=== PATIENT | male | born 1955 | race Caucasian/White ===

== ENCOUNTER 2021-03-29 14:06 | Inpatient (IN) | payer OTHER ==
[2021-03-29 16:34] VITALS: BMI 37.5
[2021-03-29] MEDS ORDERED: ONDANSETRON *ODT* 4 MG TABLET SL PRN (17:08)
[2021-03-29] MEDS ORDERED: MAGNESIUM HYDROX 2400MG/30ML ORAL SUSPENSION 30 ML CUP PO PRN (17:08)
[2021-03-29] MEDS ORDERED: MENTHOL/PHENOL 1 EACH UD MM PRN (17:08)
[2021-03-29] MEDS ORDERED: MAG HYDROX/AL HYDROX/SIMETH 30 ML UNIT-DOSE CUP PO PRN (17:08)
[2021-03-29] MEDS ORDERED: IBUPROFEN 400 MG TABLET (FP) PO PRN (17:08)
[2021-03-29] MEDS ORDERED: BISMUTH SUBSALICYLATE 524 MG/30 ML PO PRN (17:08)
[2021-03-29] MEDS ORDERED: MAGNESIUM CITRATE 300 ML BOTTLE PO PRN (17:08)
[2021-03-29] MEDS ORDERED: ACETAMINOPHEN 325 MG TABLET (FP) PO PRN ×2 (17:08)
[2021-03-29] MEDS ORDERED: PATIENT'S OWN MEDICATION (NON-FORMULARY) (Hydroxyzine Hcl [Hydroxyzine Hcl] 10 MG Tablet) PO SCH (17:45)
[2021-03-29] MEDS: amLODIPine BESYLATE 10 MG TABLET (FP) PO SCH (19:45)
[2021-03-29] MEDS: hydrOXYzine PAMOATE 25 MG CAPSULE (FP) PO SCH ×2 (19:45→22:22)
[2021-03-29] MEDS: GABAPENTIN 300 MG CAPSULE PO SCH (22:22)
[2021-03-29] MEDS: PANTOPRAZOLE 40 MG TABLET PO SCH (22:22)
[2021-03-29] MEDS: MELATONIN 5 MG TABLETS PO SCH (22:22)
[2021-03-29] MEDS: ATORVASTATIN CA 20 MG TABLET (FP) PO SCH (22:22)
[2021-03-29] MEDS: TAMSULOSIN HCL 0.4 MG CAP PO SCH (22:22)
[2021-03-29] MEDS: THIAMINE HCL 100 MG TABLET (FP) PO SCH (22:22)
[2021-03-30] MEDS: metFORMIN HCL 500 MG TABLET (FP) PO SCH ×3 (06:08→17:52)
[2021-03-30] MEDS: hydrOXYzine PAMOATE 25 MG CAPSULE (FP) PO SCH ×5 (06:08→22:12)
[2021-03-30] MEDS ORDERED: diazePAM 5 MG TABLET PO PRN (09:55)
[2021-03-30 10:16] LABS: ALBUMIN 3.6 g/dl (3.4-5.0); BLOOD UREA NITROGEN 15.1 mg/dL (7-18); CALCIUM 9.2 mg/dL (8.5-10.1)
[2021-03-30 10:20] LABS: HEMATOCRIT 38.3 % (35.4-49); HEMOGLOBIN 12.8 GM/dL (11.7-16.9); MCH 25.4 pg (25.7-33.7); MCHC 33.5 g/dl (32.0-35.9); MEAN CELL VOLUME 75.8 fl (80-96); PLATELET COUNT 236 10^3/uL (134-434); RBC 5.05 M/mm3 (4.00-5.60); RDW 14.7 % (11.9-15.9)
[2021-03-30 10:21] LABS: TOT PROT 7.1 g/dl (6.4-8.2)
[2021-03-30 10:25] LABS: BILIRUBIN,TOTAL 0.8 mg/dL (0.2-1)
[2021-03-30] MEDS: GABAPENTIN 300 MG CAPSULE PO SCH ×2 (10:28→22:12)
[2021-03-30] MEDS: diazePAM 5 MG TABLET PO SCH ×3 (10:28→22:12)
[2021-03-30] MEDS: PANTOPRAZOLE 40 MG TABLET PO SCH ×2 (10:29→22:12)
[2021-03-30] MEDS: TAMSULOSIN HCL 0.4 MG CAP PO SCH ×2 (10:29→22:12)
[2021-03-30] MEDS: LORATADINE 10 MG TABLET PO SCH (10:29)
[2021-03-30] MEDS: amLODIPine BESYLATE 10 MG TABLET (FP) PO SCH (10:31)
[2021-03-30] MEDS: MELATONIN 5 MG TABLETS PO SCH (22:12)
[2021-03-30] MEDS: THIAMINE HCL 100 MG TABLET (FP) PO SCH (22:12)
[2021-03-30] MEDS: ATORVASTATIN CA 20 MG TABLET (FP) PO SCH (22:12)
[2021-03-31] MEDS: hydrOXYzine PAMOATE 25 MG CAPSULE (FP) PO SCH ×5 (05:41→22:47)
[2021-03-31] MEDS: diazePAM 5 MG TABLET PO SCH ×4 (05:42→22:48)
[2021-03-31] MEDS: metFORMIN HCL 500 MG TABLET (FP) PO SCH ×3 (06:56→17:34)
[2021-03-31] MEDS: GABAPENTIN 300 MG CAPSULE PO SCH ×2 (10:21→22:46)
[2021-03-31] MEDS: LORATADINE 10 MG TABLET PO SCH (10:21)
[2021-03-31] MEDS: PANTOPRAZOLE 40 MG TABLET PO SCH ×2 (10:21→22:47)
[2021-03-31] MEDS: amLODIPine BESYLATE 10 MG TABLET (FP) PO SCH (10:21)
[2021-03-31] MEDS: TAMSULOSIN HCL 0.4 MG CAP PO SCH ×2 (10:21→23:13)
[2021-03-31] MEDS: traZODone HCL 50 MG TABLET (FP) PO SCH (22:47)
[2021-03-31] MEDS: ATORVASTATIN CA 20 MG TABLET (FP) PO SCH (22:47)
[2021-03-31] MEDS: THIAMINE HCL 100 MG TABLET (FP) PO SCH (22:47)
[2021-03-31] MEDS: MELATONIN 5 MG TABLETS PO SCH (22:47)
[2021-04-01] MEDS: diazePAM 5 MG TABLET PO SCH ×3 (05:38→22:15)
[2021-04-01] MEDS: hydrOXYzine PAMOATE 25 MG CAPSULE (FP) PO SCH ×5 (05:38→22:15)
[2021-04-01] MEDS: metFORMIN HCL 500 MG TABLET (FP) PO SCH ×3 (06:25→17:44)
[2021-04-01] MEDS: GABAPENTIN 300 MG CAPSULE PO SCH ×2 (10:00→22:15)
[2021-04-01] MEDS: LORATADINE 10 MG TABLET PO SCH (10:00)
[2021-04-01] MEDS: TAMSULOSIN HCL 0.4 MG CAP PO SCH ×2 (10:00→22:15)
[2021-04-01] MEDS: amLODIPine BESYLATE 10 MG TABLET (FP) PO SCH (10:01)
[2021-04-01] MEDS: PANTOPRAZOLE 40 MG TABLET PO SCH ×2 (10:01→22:15)
[2021-04-01] MEDS: METHOCARBAMOL 500 MG TABLET PO PRN ×2 (10:04→17:47)
[2021-04-01] MEDS: traZODone HCL 50 MG TABLET (FP) PO SCH (22:15)
[2021-04-01] MEDS: ATORVASTATIN CA 20 MG TABLET (FP) PO SCH (22:15)
[2021-04-01] MEDS: THIAMINE HCL 100 MG TABLET (FP) PO SCH (22:16)
[2021-04-01] MEDS: MELATONIN 5 MG TABLETS PO SCH (22:16)
[2021-04-02] MEDS: hydrOXYzine PAMOATE 25 MG CAPSULE (FP) PO SCH ×5 (05:37→21:59)
[2021-04-02] MEDS: diazePAM 5 MG TABLET PO SCH ×2 (05:37→17:02)
[2021-04-02] MEDS: METHOCARBAMOL 500 MG TABLET PO PRN ×3 (05:37→19:40)
[2021-04-02] MEDS: metFORMIN HCL 500 MG TABLET (FP) PO SCH ×3 (06:06→17:02)
[2021-04-02] MEDS: TAMSULOSIN HCL 0.4 MG CAP PO SCH ×2 (10:38→21:59)
[2021-04-02] MEDS: LORATADINE 10 MG TABLET PO SCH (10:38)
[2021-04-02] MEDS: PANTOPRAZOLE 40 MG TABLET PO SCH ×2 (10:38→21:59)
[2021-04-02] MEDS: amLODIPine BESYLATE 10 MG TABLET (FP) PO SCH (10:38)
[2021-04-02] MEDS: GABAPENTIN 300 MG CAPSULE PO SCH ×2 (10:41→21:59)
[2021-04-02] MEDS: THIAMINE HCL 100 MG TABLET (FP) PO SCH (21:59)
[2021-04-02] MEDS: traZODone HCL 50 MG TABLET (FP) PO SCH (21:59)
[2021-04-02] MEDS: ATORVASTATIN CA 20 MG TABLET (FP) PO SCH (21:59)
[2021-04-02] MEDS: MELATONIN 5 MG TABLETS PO SCH (22:01)
[2021-04-03] MEDS: hydrOXYzine PAMOATE 25 MG CAPSULE (FP) PO SCH ×2 (05:41→10:18)
[2021-04-03] MEDS ORDERED: diazePAM 5 MG TABLET PO ONE (06:00)
[2021-04-03] MEDS: metFORMIN HCL 500 MG TABLET (FP) PO SCH (06:14)
[2021-04-03 09:39] VITALS: BP 151/97; PULSE 95; TEMP 97.5
[2021-04-03] MEDS: amLODIPine BESYLATE 10 MG TABLET (FP) PO SCH (10:17)
[2021-04-03] MEDS: GABAPENTIN 300 MG CAPSULE PO SCH (10:17)
[2021-04-03] MEDS: TAMSULOSIN HCL 0.4 MG CAP PO SCH (10:17)
[2021-04-03] MEDS: PANTOPRAZOLE 40 MG TABLET PO SCH (10:18)
[2021-04-03] MEDS: LORATADINE 10 MG TABLET PO SCH (10:18)
== END 2021-04-03 10:29 | disposition home or self-care (01) | DRG 897 ==
LOC: YASAS 14:06 → Y3N 17:47
PROVIDERS: ADMIT Allergy & Immunology; ATTEND Allergy & Immunology
PROC: HZ2ZZZZ Detoxification Services for Substance Abuse Treatment (ICD-10-PCS; principal; 2021-03-29)
DX: F10.230 Alcohol dependence with withdrawal, uncomplicated (principal); F41.9 Anxiety disorder, unspecified; E78.5 Hyperlipidemia, unspecified; E11.9 Type 2 diabetes mellitus without complications; Z79.84 Long term (current) use of oral hypoglycemic drugs; G47.00 Insomnia, unspecified; I10 Essential (primary) hypertension; K21.9 Gastro-esophageal reflux disease without esophagitis; Z96.652 Presence of left artificial knee joint; Z98.2 Presence of cerebrospinal fluid drainage device; Z87.891 Personal history of nicotine dependence
CPT/HCPCS: 36415; 80053; 82962; 85027; 86780; C9803; U0003; U0005

== ENCOUNTER 2021-04-18 09:12 | Inpatient (IN) | payer OTHER ==
[2021-04-18 09:30] VITALS: BMI 36.9
[2021-04-18] MEDS ORDERED: MAGNESIUM HYDROX 2400MG/30ML ORAL SUSPENSION 30 ML CUP PO PRN (13:03)
[2021-04-18] MEDS ORDERED: ACETAMINOPHEN 325 MG TABLET (FP) PO PRN ×2 (13:03)
[2021-04-18] MEDS ORDERED: ONDANSETRON *ODT* 4 MG TABLET SL PRN (13:03)
[2021-04-18] MEDS ORDERED: MENTHOL/PHENOL 1 EACH UD MM PRN (13:03)
[2021-04-18] MEDS ORDERED: IBUPROFEN 400 MG TABLET (FP) PO PRN (13:03)
[2021-04-18] MEDS ORDERED: MAGNESIUM CITRATE 300 ML BOTTLE PO PRN (13:03)
[2021-04-18] MEDS ORDERED: MAG HYDROX/AL HYDROX/SIMETH 30 ML UNIT-DOSE CUP PO PRN (13:03)
[2021-04-18] MEDS ORDERED: BISMUTH SUBSALICYLATE 524 MG/30 ML PO PRN (13:03)
[2021-04-18] MEDS: diazePAM 5 MG TABLET PO PRN (14:57)
[2021-04-18] MEDS: METHOCARBAMOL 500 MG TABLET PO PRN (14:57)
[2021-04-18] MEDS: hydrOXYzine PAMOATE 25 MG CAPSULE (FP) PO SCH ×3 (15:02→22:21)
[2021-04-18] MEDS: metFORMIN HCL 500 MG TABLET (FP) PO SCH (17:26)
[2021-04-18] MEDS: diazePAM 5 MG TABLET PO SCH ×2 (17:26→22:19)
[2021-04-18] MEDS ORDERED: MELATONIN 5 MG TABLETS PO SCH (22:00)
[2021-04-18] MEDS: PANTOPRAZOLE 40 MG TABLET PO SCH (22:18)
[2021-04-18] MEDS: TAMSULOSIN HCL 0.4 MG CAP PO SCH (22:18)
[2021-04-18] MEDS: THIAMINE HCL 100 MG TABLET (FP) PO SCH (22:18)
[2021-04-18] MEDS: GABAPENTIN 300 MG CAPSULE PO SCH (22:18)
[2021-04-18] MEDS: ATORVASTATIN CA 20 MG TABLET (FP) PO SCH (22:19)
[2021-04-19] MEDS: diazePAM 5 MG TABLET PO PRN (03:24)
[2021-04-19] MEDS: hydrOXYzine PAMOATE 25 MG CAPSULE (FP) PO SCH ×5 (05:54→22:17)
[2021-04-19] MEDS: diazePAM 5 MG TABLET PO SCH ×4 (05:54→22:17)
[2021-04-19] MEDS: METHOCARBAMOL 500 MG TABLET PO PRN ×2 (05:54→12:18)
[2021-04-19] MEDS: metFORMIN HCL 500 MG TABLET (FP) PO SCH ×3 (06:03→17:14)
[2021-04-19] MEDS: PANTOPRAZOLE 40 MG TABLET PO SCH ×2 (10:38→22:16)
[2021-04-19] MEDS: PRENATAL VITAMINS W/ FOLIC ACID TABLET (FP) PO SCH (10:38)
[2021-04-19] MEDS: GABAPENTIN 300 MG CAPSULE PO SCH ×2 (10:39→22:16)
[2021-04-19] MEDS: TAMSULOSIN HCL 0.4 MG CAP PO SCH ×2 (10:39→22:16)
[2021-04-19] MEDS: amLODIPine BESYLATE 10 MG TABLET (FP) PO SCH (10:39)
[2021-04-19 11:05] LABS: HEMATOCRIT 37.4 % (35.4-49); HEMOGLOBIN 12.3 GM/dL (11.7-16.9); MCHC 32.8 g/dl (32.0-35.9); MEAN CELL VOLUME 76.3 fl (80-96); PLATELET COUNT 345 10^3/uL (134-434); RBC 4.91 M/mm3 (4.00-5.60); RDW 15.4 % (11.9-15.9); WHITE BLOOD COUNT 8.8 K/mm3 (4.0-10.0)
[2021-04-19 11:09] LABS: BLOOD UREA NITROGEN 15.2 mg/dL (7-18); CALCIUM 9.7 mg/dL (8.5-10.1)
[2021-04-19 11:10] LABS: ALBUMIN 3.2 g/dl (3.4-5.0)
[2021-04-19 11:14] LABS: BILIRUBIN,TOTAL 0.4 mg/dL (0.2-1); CREATININE 0.9 mg/dL (0.55-1.3)
[2021-04-19 11:15] LABS: TOT PROT 6.8 g/dl (6.4-8.2)
[2021-04-19] MEDS: ATORVASTATIN CA 20 MG TABLET (FP) PO SCH (22:16)
[2021-04-19] MEDS: traZODone HCL 100 MG TABLET (FP) PO SCH (22:16)
[2021-04-19] MEDS: THIAMINE HCL 100 MG TABLET (FP) PO SCH (22:16)
[2021-04-20] MEDS: hydrOXYzine PAMOATE 25 MG CAPSULE (FP) PO SCH ×5 (05:40→22:14)
[2021-04-20] MEDS: diazePAM 5 MG TABLET PO SCH ×3 (05:40→22:14)
[2021-04-20] MEDS: metFORMIN HCL 500 MG TABLET (FP) PO SCH ×3 (08:00→16:59)
[2021-04-20] MEDS: METHOCARBAMOL 500 MG TABLET PO PRN ×2 (08:02→22:18)
[2021-04-20] MEDS: TAMSULOSIN HCL 0.4 MG CAP PO SCH ×2 (10:23→22:13)
[2021-04-20] MEDS: GABAPENTIN 300 MG CAPSULE PO SCH ×2 (10:23→22:13)
[2021-04-20] MEDS: PANTOPRAZOLE 40 MG TABLET PO SCH ×2 (10:23→22:13)
[2021-04-20] MEDS: PRENATAL VITAMINS W/ FOLIC ACID TABLET (FP) PO SCH (10:23)
[2021-04-20] MEDS: amLODIPine BESYLATE 10 MG TABLET (FP) PO SCH (10:23)
[2021-04-20] MEDS ORDERED: NALTREXONE HCL 50 MG TABLET PO ONE (11:00)
[2021-04-20] MEDS: diazePAM 5 MG TABLET PO PRN (17:00)
[2021-04-20] MEDS: ATORVASTATIN CA 20 MG TABLET (FP) PO SCH (22:13)
[2021-04-20] MEDS: THIAMINE HCL 100 MG TABLET (FP) PO SCH (22:13)
[2021-04-20] MEDS: traZODone HCL 100 MG TABLET (FP) PO SCH (22:13)
[2021-04-21] MEDS: diazePAM 5 MG TABLET PO SCH ×2 (05:24→17:53)
[2021-04-21] MEDS: hydrOXYzine PAMOATE 25 MG CAPSULE (FP) PO SCH ×5 (05:24→22:02)
[2021-04-21] MEDS: METHOCARBAMOL 500 MG TABLET PO PRN (05:26)
[2021-04-21] MEDS: metFORMIN HCL 500 MG TABLET (FP) PO SCH ×3 (06:04→17:53)
[2021-04-21] MEDS ORDERED: NALTREXONE HCL 50 MG TABLET PO ONE (10:00)
[2021-04-21] MEDS: GABAPENTIN 300 MG CAPSULE PO SCH ×2 (10:25→22:01)
[2021-04-21] MEDS: amLODIPine BESYLATE 10 MG TABLET (FP) PO SCH (10:25)
[2021-04-21] MEDS: PRENATAL VITAMINS W/ FOLIC ACID TABLET (FP) PO SCH (10:25)
[2021-04-21] MEDS: TAMSULOSIN HCL 0.4 MG CAP PO SCH ×2 (10:26→22:01)
[2021-04-21] MEDS: PANTOPRAZOLE 40 MG TABLET PO SCH ×2 (10:26→22:02)
[2021-04-21] MEDS: diazePAM 5 MG TABLET PO PRN (12:58)
[2021-04-21] MEDS: traZODone HCL 100 MG TABLET (FP) PO SCH (22:01)
[2021-04-21] MEDS: ATORVASTATIN CA 20 MG TABLET (FP) PO SCH (22:01)
[2021-04-21] MEDS: THIAMINE HCL 100 MG TABLET (FP) PO SCH (22:01)
[2021-04-22] MEDS: hydrOXYzine PAMOATE 25 MG CAPSULE (FP) PO SCH (05:49)
[2021-04-22] MEDS ORDERED: NALTREXONE HCL 50 MG TABLET PO ONE (06:00)
[2021-04-22] MEDS ORDERED: diazePAM 5 MG TABLET PO ONE (06:00)
[2021-04-22] MEDS: metFORMIN HCL 500 MG TABLET (FP) PO SCH (06:13)
[2021-04-22 07:07] VITALS: PULSE 68; TEMP 97.8
[2021-04-22 08:35] VITALS: BP 155/86
[2021-04-22] MEDS: amLODIPine BESYLATE 10 MG TABLET (FP) PO SCH (09:13)
[2021-04-22] MEDS: PANTOPRAZOLE 40 MG TABLET PO SCH (09:13)
[2021-04-22] MEDS: GABAPENTIN 300 MG CAPSULE PO SCH (09:13)
[2021-04-22] MEDS: TAMSULOSIN HCL 0.4 MG CAP PO SCH (09:13)
== END 2021-04-22 09:20 | disposition home or self-care (01) | DRG 897 ==
LOC: YASAS 09:12 → Y6N 14:03
PROVIDERS: ADMIT Allergy & Immunology; ATTEND Allergy & Immunology
PROC: HZ2ZZZZ Detoxification Services for Substance Abuse Treatment (ICD-10-PCS; principal; 2021-04-18)
DX: F10.230 Alcohol dependence with withdrawal, uncomplicated (principal); F10.24 Alcohol dependence with alcohol-induced mood disorder; F32.9 Major depressive disorder, single episode, unspecified; I10 Essential (primary) hypertension; E78.00 Pure hypercholesterolemia, unspecified; E11.42 Type 2 diabetes mellitus with diabetic polyneuropathy; K21.9 Gastro-esophageal reflux disease without esophagitis; J45.909 Unspecified asthma, uncomplicated; N40.0 Benign prostatic hyperplasia without lower urinary tract symptoms; Z96.652 Presence of left artificial knee joint; Z79.84 Long term (current) use of oral hypoglycemic drugs; Z99.89 Dependence on other enabling machines and devices; Z98.2 Presence of cerebrospinal fluid drainage device
CPT/HCPCS: 36415; 80053; 82962; 85027; 86780; C9803; U0003; U0005

== ENCOUNTER 2021-07-15 19:54 | Emergency (ER) | payer OTHER ==
[2021-07-15 20:19] VITALS: TEMP 98.3; BMI 35.1
[2021-07-15] MEDS ORDERED: BACITRACIN 15 GM TUBE TOPICAL OINTMENT TP ONE (20:37)
[2021-07-15] MEDS ORDERED: BACITRACIN 15 GM TUBE TOPICAL OINTMENT ONE (20:38)
[2021-07-15] MEDS ORDERED: DIPHTH,PERTUSS(ACELL),TET 0.5 ML DISP.SYRIN IM ONE ×3 (20:38→20:42)
[2021-07-15] MEDS ORDERED: BACITRACIN 0.9 GM PACKET ONE (20:42)
[2021-07-15] MEDS ORDERED: chlordiazePOXIDE HCL 25 MG CAPSULE PO ONE (21:55)
[2021-07-15] MEDS ORDERED: ACETAMINOPHEN 500 MG TABLET (FP) PO ONE (21:55)
[2021-07-15] MEDS ORDERED: chlordiazePOXIDE HCL 25 MG CAPSULE ONE (22:08)
[2021-07-15] MEDS ORDERED: ACETAMINOPHEN 325 MG TABLET (FP) ONE (22:08)
[2021-07-15 22:18] VITALS: BP 121/81; PULSE 87
== END 2021-07-15 22:18 | disposition home or self-care (01) ==
LOC: JER 19:54
PROC: 3E0234Z Introduction of Serum, Toxoid and Vaccine into Muscle, Percutaneous Approach (ICD-10-PCS; principal; 2021-07-15)
DX: S09.90XA Unspecified injury of head, initial encounter (principal); S00.81XA Abrasion of other part of head, initial encounter; F10.920 Alcohol use, unspecified with intoxication, uncomplicated; W01.0XXA Fall on same level from slipping, tripping and stumbling without subsequent striking against object, initial encounter
CPT/HCPCS: 70450-TC; 90471; 90715; 99284-25

== ENCOUNTER 2021-07-15 22:41 | Inpatient (IN) | payer OTHER ==
[2021-07-15 23:44] VITALS: BMI 36.3
[2021-07-16] MEDS ORDERED: MAG HYDROX/AL HYDROX/SIMETH 30 ML UNIT-DOSE CUP PO PRN (00:28)
[2021-07-16] MEDS ORDERED: NICOTINE POLACRILEX 2 MG GUM BUC PRN (00:28)
[2021-07-16] MEDS ORDERED: MAGNESIUM CITRATE 300 ML BOTTLE PO PRN (00:28)
[2021-07-16] MEDS ORDERED: ACETAMINOPHEN 325 MG TABLET (FP) PO PRN (00:28)
[2021-07-16] MEDS ORDERED: MENTHOL/PHENOL 1 EACH UD MM PRN (00:28)
[2021-07-16] MEDS ORDERED: ONDANSETRON *ODT* 4 MG TABLET SL PRN (00:28)
[2021-07-16] MEDS ORDERED: MAGNESIUM HYDROX 2400MG/30ML ORAL SUSPENSION 30 ML CUP PO PRN (00:28)
[2021-07-16] MEDS ORDERED: BISMUTH SUBSALICYLATE 524 MG/30 ML PO PRN (00:28)
[2021-07-16] MEDS ORDERED: chlordiazePOXIDE HCL 25 MG CAPSULE PO PRN (00:31)
[2021-07-16] MEDS ORDERED: IBUPROFEN 400 MG TABLET (FP) PO ONE (01:53)
[2021-07-16] MEDS: IBUPROFEN 400 MG TABLET (FP) PO PRN ×3 (01:58→17:47)
[2021-07-16] MEDS: METHOCARBAMOL 500 MG TABLET PO PRN ×3 (02:15→17:47)
[2021-07-16] MEDS ORDERED: METHOCARBAMOL 500 MG TABLET ONE (02:22)
[2021-07-16] MEDS: chlordiazePOXIDE HCL 25 MG CAPSULE PO SCH ×4 (05:43→22:32)
[2021-07-16] MEDS: ACETAMINOPHEN 325 MG TABLET (FP) PO PRN ×2 (10:24→17:49)
[2021-07-16] MEDS: PRENATAL VITAMINS W/ FOLIC ACID TABLET (FP) PO SCH (10:25)
[2021-07-16] MEDS: NICOTINE 14 MG/24 HOURS TOPICAL PATCH TD SCH (10:28)
[2021-07-16] MEDS ORDERED: PATIENT'S OWN MEDICATION (NON-FORMULARY) (Icosapent Ethyl [Vascepa] 1 GM Capsule) PO SCH (12:30)
[2021-07-16] MEDS: ATORVASTATIN CA 20 MG TABLET (FP) PO SCH (13:38)
[2021-07-16] MEDS: amLODIPine BESYLATE 10 MG TABLET (FP) PO SCH (13:38)
[2021-07-16] MEDS: metFORMIN HCL 500 MG TABLET (FP) PO SCH ×2 (13:38→17:47)
[2021-07-16] MEDS: TAMSULOSIN HCL 0.4 MG CAP PO SCH ×2 (13:38→22:31)
[2021-07-16] MEDS: PANTOPRAZOLE 40 MG TABLET PO SCH (15:06)
[2021-07-16] MEDS: LORATADINE 10 MG TABLET PO SCH (15:06)
[2021-07-16] MEDS: GABAPENTIN 300 MG CAPSULE PO SCH ×2 (15:06→22:30)
[2021-07-16] MEDS: SILDENAFIL CITRATE 20 MG TAB PO SCH ×2 (15:30→22:32)
[2021-07-16] MEDS: DULoxetine HCL 60 MG CAPSULE.DR PO SCH ×2 (16:03→22:30)
[2021-07-16] MEDS: traZODone HCL 100 MG TABLET (FP) PO SCH (22:30)
[2021-07-16] MEDS: THIAMINE HCL 100 MG TABLET (FP) PO SCH (22:30)
[2021-07-16] MEDS: MELATONIN 5 MG TABLETS PO SCH (22:33)
[2021-07-17] MEDS: chlordiazePOXIDE HCL 25 MG CAPSULE PO SCH ×4 (05:26→22:42)
[2021-07-17] MEDS: METHOCARBAMOL 500 MG TABLET PO PRN ×2 (05:26→10:41)
[2021-07-17] MEDS: SILDENAFIL CITRATE 20 MG TAB PO SCH ×3 (05:27→22:42)
[2021-07-17] MEDS: metFORMIN HCL 500 MG TABLET (FP) PO SCH ×2 (07:24→16:39)
[2021-07-17] MEDS: DULoxetine HCL 60 MG CAPSULE.DR PO SCH ×2 (10:40→22:42)
[2021-07-17] MEDS: PRENATAL VITAMINS W/ FOLIC ACID TABLET (FP) PO SCH (10:40)
[2021-07-17] MEDS: amLODIPine BESYLATE 10 MG TABLET (FP) PO SCH (10:42)
[2021-07-17] MEDS: PANTOPRAZOLE 40 MG TABLET PO SCH (10:42)
[2021-07-17] MEDS: GABAPENTIN 300 MG CAPSULE PO SCH ×2 (10:42→20:30)
[2021-07-17] MEDS: LORATADINE 10 MG TABLET PO SCH (10:42)
[2021-07-17] MEDS: ATORVASTATIN CA 20 MG TABLET (FP) PO SCH (10:42)
[2021-07-17] MEDS: TAMSULOSIN HCL 0.4 MG CAP PO SCH ×2 (10:43→22:42)
[2021-07-17] MEDS: NICOTINE 14 MG/24 HOURS TOPICAL PATCH TD SCH (10:43)
[2021-07-17 13:39] LABS: CHLORIDE 99 mmol/L (98-107); SODIUM 126 mmol/L (136-145)
[2021-07-17 13:47] LABS: SGOT/AST 26 U/L (15-37)
[2021-07-17 13:49] LABS: BILIRUBIN,TOTAL 0.6 mg/dL (0.2-1); CALCIUM 8.9 mg/dL (8.5-10.1); CO2 20 mmol/L (21-32); GLUCOSE,RANDOM 126 mg/dL (74-106); HEMATOCRIT 39.4 % (35.4-49); HEMOGLOBIN 12.6 GM/dL (11.7-16.9); MCH 24.3 pg (25.7-33.7); MCHC 32.1 g/dl (32.0-35.9); MEAN CELL VOLUME 75.8 fl (80-96); MEAN PLT VOLUME 8.7 fl (7.5-11.1); PLATELET COUNT 244 10^3/uL (134-434); RBC 5.19 M/mm3 (4.00-5.60); RDW 18.6 % (11.9-15.9)
[2021-07-17 13:50] LABS: ALK PHOS 82 U/L (45-117)
[2021-07-17 13:58] LABS: SGPT/ALT 22 U/L (13-61)
[2021-07-17 13:59] LABS: ANION GAP 7 MMOL/L (8-16)
[2021-07-17 14:09] LABS: WHITE BLOOD COUNT 1.5 K/mm3 (4.0-10.0)
[2021-07-17] MEDS ORDERED: SODIUM POLYSTYRENE SULFONATE 15 GM/60 ML BOTTLE PO ONE (17:10)
[2021-07-17] MEDS: ACETAMINOPHEN 325 MG TABLET (FP) PO PRN (18:43)
[2021-07-17] MEDS: THIAMINE HCL 100 MG TABLET (FP) PO SCH (22:42)
[2021-07-17] MEDS: traZODone HCL 100 MG TABLET (FP) PO SCH (22:42)
[2021-07-17] MEDS: MELATONIN 5 MG TABLETS PO SCH (22:43)
[2021-07-18] MEDS ORDERED: chlordiazePOXIDE HCL 10 MG CAPSULE PO PRN
[2021-07-18] MEDS: chlordiazePOXIDE HCL 10 MG CAPSULE PO SCH ×4 (05:31→22:12)
[2021-07-18] MEDS: SILDENAFIL CITRATE 20 MG TAB PO SCH ×3 (05:35→22:12)
[2021-07-18] MEDS: metFORMIN HCL 500 MG TABLET (FP) PO SCH ×2 (07:25→17:23)
[2021-07-18] MEDS: PANTOPRAZOLE 40 MG TABLET PO SCH (10:24)
[2021-07-18] MEDS: ATORVASTATIN CA 20 MG TABLET (FP) PO SCH (10:24)
[2021-07-18] MEDS: METHOCARBAMOL 500 MG TABLET PO PRN ×2 (10:24→22:12)
[2021-07-18] MEDS: amLODIPine BESYLATE 10 MG TABLET (FP) PO SCH (10:24)
[2021-07-18] MEDS: PRENATAL VITAMINS W/ FOLIC ACID TABLET (FP) PO SCH (10:24)
[2021-07-18] MEDS: TAMSULOSIN HCL 0.4 MG CAP PO SCH ×2 (10:24→22:12)
[2021-07-18] MEDS: DULoxetine HCL 60 MG CAPSULE.DR PO SCH ×2 (10:24→22:11)
[2021-07-18] MEDS: GABAPENTIN 300 MG CAPSULE PO SCH ×2 (10:24→22:12)
[2021-07-18] MEDS: NICOTINE 14 MG/24 HOURS TOPICAL PATCH TD SCH (10:25)
[2021-07-18] MEDS: LORATADINE 10 MG TABLET PO SCH (10:28)
[2021-07-18] MEDS ORDERED: INSULIN SLIDING SCALE (NOVOLOG) 1 VIAL SQ SCH (16:30)
[2021-07-18] MEDS: MELATONIN 5 MG TABLETS PO SCH (22:11)
[2021-07-18] MEDS: traZODone HCL 100 MG TABLET (FP) PO SCH (22:12)
[2021-07-18] MEDS: THIAMINE HCL 100 MG TABLET (FP) PO SCH (22:12)
[2021-07-19] MEDS: SILDENAFIL CITRATE 20 MG TAB PO SCH ×3 (05:30→22:28)
[2021-07-19] MEDS: chlordiazePOXIDE HCL 10 MG CAPSULE PO SCH ×2 (05:30→17:31)
[2021-07-19] MEDS: METHOCARBAMOL 500 MG TABLET PO PRN ×2 (05:34→15:05)
[2021-07-19] MEDS: metFORMIN HCL 500 MG TABLET (FP) PO SCH ×2 (07:10→17:31)
[2021-07-19] MEDS: GABAPENTIN 300 MG CAPSULE PO SCH ×2 (10:14→22:28)
[2021-07-19] MEDS: ATORVASTATIN CA 20 MG TABLET (FP) PO SCH (10:14)
[2021-07-19] MEDS: LORATADINE 10 MG TABLET PO SCH (10:14)
[2021-07-19] MEDS: PANTOPRAZOLE 40 MG TABLET PO SCH (10:14)
[2021-07-19] MEDS: TAMSULOSIN HCL 0.4 MG CAP PO SCH ×2 (10:15→22:28)
[2021-07-19] MEDS: DULoxetine HCL 60 MG CAPSULE.DR PO SCH ×2 (10:15→22:28)
[2021-07-19] MEDS: PRENATAL VITAMINS W/ FOLIC ACID TABLET (FP) PO SCH (10:15)
[2021-07-19] MEDS: amLODIPine BESYLATE 10 MG TABLET (FP) PO SCH (10:15)
[2021-07-19] MEDS: NICOTINE 14 MG/24 HOURS TOPICAL PATCH TD SCH (10:15)
[2021-07-19 10:49] LABS: BASO % 0.8 % (0-2.0); EOS % 7.6 % (0-4.5); HEMATOCRIT 36.1 % (35.4-49); HEMOGLOBIN 11.9 GM/dL (11.7-16.9); LYMPH % 16.7 % (8-40); MCH 24.9 pg (25.7-33.7); MCHC 32.9 g/dl (32.0-35.9); MEAN CELL VOLUME 75.8 fl (80-96); MEAN PLT VOLUME 7.9 fl (7.5-11.1); MONO % 6.8 % (3.8-10.2); NEUT % 68.1 % (42.8-82.8); PLATELET COUNT 217 10^3/uL (134-434); RBC 4.76 M/mm3 (4.00-5.60)
[2021-07-19] MEDS: IBUPROFEN 400 MG TABLET (FP) PO PRN (15:05)
[2021-07-19] MEDS: INSULIN SLIDING SCALE (NOVOLOG) 1 VIAL SQ PRN (17:33)
[2021-07-19] MEDS ORDERED: INSULIN (NOVOLOG) ASPART 100 UNITS/ML 10ML VIAL ONE (17:35)
[2021-07-19] MEDS: THIAMINE HCL 100 MG TABLET (FP) PO SCH (22:28)
[2021-07-19] MEDS: traZODone HCL 100 MG TABLET (FP) PO SCH (22:28)
[2021-07-19] MEDS: MELATONIN 5 MG TABLETS PO SCH (22:29)
[2021-07-20] MEDS ORDERED: chlordiazePOXIDE HCL 10 MG CAPSULE PO ONE (05:00)
[2021-07-20] MEDS: SILDENAFIL CITRATE 20 MG TAB PO SCH ×3 (05:47→22:23)
[2021-07-20] MEDS: METHOCARBAMOL 500 MG TABLET PO PRN (05:51)
[2021-07-20] MEDS: metFORMIN HCL 500 MG TABLET (FP) PO SCH ×2 (06:06→17:40)
[2021-07-20] MEDS ORDERED: LOPERAMIDE HCL 2 MG CAPSULE PO ONE (09:50)
[2021-07-20] MEDS: PRENATAL VITAMINS W/ FOLIC ACID TABLET (FP) PO SCH (10:31)
[2021-07-20] MEDS: LORATADINE 10 MG TABLET PO SCH (10:32)
[2021-07-20] MEDS: TAMSULOSIN HCL 0.4 MG CAP PO SCH ×2 (10:32→22:24)
[2021-07-20] MEDS: amLODIPine BESYLATE 10 MG TABLET (FP) PO SCH (10:32)
[2021-07-20] MEDS: GABAPENTIN 300 MG CAPSULE PO SCH ×2 (10:32→22:24)
[2021-07-20] MEDS: PANTOPRAZOLE 40 MG TABLET PO SCH (10:32)
[2021-07-20] MEDS: ATORVASTATIN CA 20 MG TABLET (FP) PO SCH (10:32)
[2021-07-20] MEDS: NICOTINE 14 MG/24 HOURS TOPICAL PATCH TD SCH (10:32)
[2021-07-20] MEDS: DULoxetine HCL 60 MG CAPSULE.DR PO SCH ×2 (10:32→22:24)
[2021-07-20] MEDS ORDERED: SUCRALFATE 1 GM TABLET (FP) PO ONE (14:00)
[2021-07-20] MEDS ORDERED: INSULIN (NOVOLOG) ASPART 100 UNITS/ML 10ML VIAL ONE (17:38)
[2021-07-20] MEDS: INSULIN SLIDING SCALE (NOVOLOG) 1 VIAL SQ PRN (17:40)
[2021-07-20] MEDS: THIAMINE HCL 100 MG TABLET (FP) PO SCH (22:24)
[2021-07-20] MEDS: MELATONIN 5 MG TABLETS PO SCH (22:24)
[2021-07-20] MEDS: traZODone HCL 100 MG TABLET (FP) PO SCH (22:24)
[2021-07-21] MEDS: SILDENAFIL CITRATE 20 MG TAB PO SCH (05:17)
[2021-07-21] MEDS: metFORMIN HCL 500 MG TABLET (FP) PO SCH (06:20)
[2021-07-21] MEDS: PANTOPRAZOLE 40 MG TABLET PO SCH (10:18)
[2021-07-21] MEDS: DULoxetine HCL 60 MG CAPSULE.DR PO SCH (10:18)
[2021-07-21] MEDS: PRENATAL VITAMINS W/ FOLIC ACID TABLET (FP) PO SCH (10:18)
[2021-07-21] MEDS: TAMSULOSIN HCL 0.4 MG CAP PO SCH (10:18)
[2021-07-21] MEDS: amLODIPine BESYLATE 10 MG TABLET (FP) PO SCH (10:18)
[2021-07-21] MEDS: LORATADINE 10 MG TABLET PO SCH (10:18)
[2021-07-21] MEDS: GABAPENTIN 300 MG CAPSULE PO SCH (10:18)
[2021-07-21] MEDS: ATORVASTATIN CA 20 MG TABLET (FP) PO SCH (10:18)
[2021-07-21] MEDS: NICOTINE 14 MG/24 HOURS TOPICAL PATCH TD SCH (10:37)
[2021-07-21 13:08] VITALS: BP 154/83; PULSE 101; TEMP 98
== END 2021-07-21 13:43 | disposition other institution (70) | DRG 897 ==
LOC: YASAS 22:41 → Y6N 07-16 02:13
PROVIDERS: ADMIT Allergy & Immunology; ATTEND Allergy & Immunology
PROC: HZ2ZZZZ Detoxification Services for Substance Abuse Treatment (ICD-10-PCS; principal; 2021-07-16)
DX: F10.230 Alcohol dependence with withdrawal, uncomplicated (principal); F19.282 Other psychoactive substance dependence with psychoactive substance-induced sleep disorder; G91.2 (Idiopathic) normal pressure hydrocephalus; F19.24 Other psychoactive substance dependence with psychoactive substance-induced mood disorder; F41.9 Anxiety disorder, unspecified; F32.A Depression, unspecified; E87.5 Hyperkalemia; E78.5 Hyperlipidemia, unspecified; E11.9 Type 2 diabetes mellitus without complications; Z79.84 Long term (current) use of oral hypoglycemic drugs; I10 Essential (primary) hypertension; J45.20 Mild intermittent asthma, uncomplicated; K21.9 Gastro-esophageal reflux disease without esophagitis; N40.0 Benign prostatic hyperplasia without lower urinary tract symptoms; N52.9 Male erectile dysfunction, unspecified; R19.7 Diarrhea, unspecified; R53.1 Weakness; Z96.652 Presence of left artificial knee joint; Z99.89 Dependence on other enabling machines and devices; Z87.891 Personal history of nicotine dependence; Z98.2 Presence of cerebrospinal fluid drainage device; S09.90XA Unspecified injury of head, initial encounter; S00.81XA Abrasion of other part of head, initial encounter; R51.9 Headache, unspecified; W19.XXXA Unspecified fall, initial encounter; Y92.9 Unspecified place or not applicable
CPT/HCPCS: 36415; 80053; 82962; 84132; 85025; 85027; 86780; 93005; 93010; C9803; U0003; U0005

== ENCOUNTER 2021-09-11 08:30 | Inpatient (IN) | payer OTHER ==
[2021-09-11] MEDS ORDERED: TRIMETHOBENZAMIDE HCL 200MG/2ML INJ IM ONE ×2 (10:00→10:05)
[2021-09-11] MEDS ORDERED: ONDANSETRON *ODT* 4 MG TABLET SL PRN (11:17)
[2021-09-11] MEDS ORDERED: BISMUTH SUBSALICYLATE 524 MG/30 ML PO PRN (11:17)
[2021-09-11] MEDS ORDERED: MAGNESIUM HYDROX 2400MG/30ML ORAL SUSPENSION 30 ML CUP PO PRN (11:17)
[2021-09-11] MEDS ORDERED: MAG HYDROX/AL HYDROX/SIMETH 30 ML UNIT-DOSE CUP PO PRN (11:17)
[2021-09-11] MEDS ORDERED: MAGNESIUM CITRATE 300 ML BOTTLE PO PRN (11:17)
[2021-09-11] MEDS ORDERED: ACETAMINOPHEN 325 MG TABLET (FP) PO PRN (11:17)
[2021-09-11] MEDS ORDERED: chlordiazePOXIDE HCL 25 MG CAPSULE PO PRN (11:20)
[2021-09-11] MEDS: chlordiazePOXIDE HCL 25 MG CAPSULE PO SCH ×3 (14:54→22:12)
[2021-09-11] MEDS: hydrOXYzine PAMOATE 25 MG CAPSULE (FP) PO PRN (18:06)
[2021-09-11] MEDS: ATORVASTATIN CA 20 MG TABLET (FP) PO SCH (21:52)
[2021-09-11] MEDS: THIAMINE HCL 100 MG TABLET (FP) PO SCH (21:52)
[2021-09-12] MEDS: chlordiazePOXIDE HCL 25 MG CAPSULE PO SCH ×4 (05:37→22:17)
[2021-09-12] MEDS: PRENATAL VITAMINS W/ FOLIC ACID TABLET (FP) PO SCH (10:14)
[2021-09-12] MEDS: amLODIPine BESYLATE 10 MG TABLET (FP) PO SCH (10:14)
[2021-09-12 12:13] LABS: HEMATOCRIT 38.9 % (35.4-49); HEMOGLOBIN 12.8 GM/dL (11.7-16.9); MCH 25.4 pg (25.7-33.7); MCHC 33.1 g/dl (32.0-35.9); MEAN CELL VOLUME 76.9 fl (80-96); MEAN PLT VOLUME 7.7 fl (7.5-11.1); PLATELET COUNT 258 10^3/uL (134-434); RBC 5.05 M/mm3 (4.00-5.60); RDW 17.2 % (11.9-15.9)
[2021-09-12 12:23] LABS: CALCIUM 8.8 mg/dL (8.5-10.1)
[2021-09-12 12:25] LABS: ALBUMIN 3.5 g/dl (3.4-5.0); CREATININE 1.3 mg/dL (0.55-1.3)
[2021-09-12 12:26] LABS: BILIRUBIN,TOTAL 0.5 mg/dL (0.2-1); TOT PROT 6.6 g/dl (6.4-8.2)
[2021-09-12] MEDS: ILEVRO OS SCH (21:15)
[2021-09-12] MEDS: ATORVASTATIN CA 20 MG TABLET (FP) PO SCH (22:17)
[2021-09-12] MEDS: THIAMINE HCL 100 MG TABLET (FP) PO SCH (22:17)
[2021-09-12] MEDS: traZODone HCL 50 MG TABLET (FP) PO SCH (22:17)
[2021-09-12] MEDS: METHOCARBAMOL 500 MG TABLET PO PRN (22:19)
[2021-09-12] MEDS: MELATONIN 5 MG TABLETS PO PRN (22:20)
[2021-09-12] MEDS: DIFLUPREDNATE OD SCH (23:10)
[2021-09-12] MEDS: MOXIFLOXACIN OD SCH (23:10)
[2021-09-13 00:06] LABS: SARS-CoV-2 NAA Not Detected (Not Detected)
[2021-09-13] MEDS: chlordiazePOXIDE HCL 25 MG CAPSULE PO SCH ×4 (05:54→22:45)
[2021-09-13] MEDS: METHOCARBAMOL 500 MG TABLET PO PRN ×3 (05:57→22:52)
[2021-09-13] MEDS: INSULIN SLIDING SCALE (NOVOLOG) 1 VIAL SQ SCH ×2 (06:33→17:46)
[2021-09-13] MEDS: DIFLUPREDNATE OD SCH ×4 (10:23→22:50)
[2021-09-13] MEDS: ILEVRO OS SCH (10:24)
[2021-09-13] MEDS: PRENATAL VITAMINS W/ FOLIC ACID TABLET (FP) PO SCH (10:26)
[2021-09-13] MEDS: amLODIPine BESYLATE 10 MG TABLET (FP) PO SCH (10:46)
[2021-09-13] MEDS: MOXIFLOXACIN OD SCH ×4 (10:50→22:49)
[2021-09-13] MEDS: IBUPROFEN 400 MG TABLET (FP) PO PRN (19:54)
[2021-09-13] MEDS: MENTHOL/PHENOL 1 EACH UD MM PRN (19:55)
[2021-09-13] MEDS: THIAMINE HCL 100 MG TABLET (FP) PO SCH (22:43)
[2021-09-13] MEDS: MELATONIN 5 MG TABLETS PO PRN (22:43)
[2021-09-13] MEDS: traZODone HCL 50 MG TABLET (FP) PO SCH (22:44)
[2021-09-13] MEDS: ATORVASTATIN CA 20 MG TABLET (FP) PO SCH (22:44)
[2021-09-13] MEDS: FAMOTIDINE 20 MG TABLET PO SCH (22:48)
[2021-09-14] MEDS ORDERED: chlordiazePOXIDE HCL 10 MG CAPSULE PO PRN
[2021-09-14] MEDS: chlordiazePOXIDE HCL 10 MG CAPSULE PO SCH ×4 (06:14→22:22)
[2021-09-14] MEDS: METHOCARBAMOL 500 MG TABLET PO PRN ×3 (06:16→17:47)
[2021-09-14] MEDS: INSULIN SLIDING SCALE (NOVOLOG) 1 VIAL SQ SCH ×2 (08:06→17:42)
[2021-09-14] MEDS: amLODIPine BESYLATE 10 MG TABLET (FP) PO SCH (10:26)
[2021-09-14] MEDS: TAMSULOSIN HCL 0.4 MG CAP PO SCH (10:27)
[2021-09-14] MEDS: FAMOTIDINE 20 MG TABLET PO SCH ×2 (10:27→22:22)
[2021-09-14] MEDS: PRENATAL VITAMINS W/ FOLIC ACID TABLET (FP) PO SCH (10:29)
[2021-09-14] MEDS: MOXIFLOXACIN OD SCH ×4 (10:31→23:08)
[2021-09-14] MEDS: DIFLUPREDNATE OD SCH ×4 (10:31→22:50)
[2021-09-14] MEDS: ILEVRO OS SCH (10:31)
[2021-09-14] MEDS: hydrOXYzine PAMOATE 25 MG CAPSULE (FP) PO PRN ×2 (17:44→22:26)
[2021-09-14] MEDS: IBUPROFEN 400 MG TABLET (FP) PO PRN (17:44)
[2021-09-14] MEDS: THIAMINE HCL 100 MG TABLET (FP) PO SCH (22:21)
[2021-09-14] MEDS: traZODone HCL 50 MG TABLET (FP) PO SCH (22:21)
[2021-09-14] MEDS: MELATONIN 5 MG TABLETS PO PRN (22:21)
[2021-09-14] MEDS: ATORVASTATIN CA 20 MG TABLET (FP) PO SCH (22:22)
[2021-09-14] MEDS: LOPERAMIDE HCL 2 MG CAPSULE PO PRN (22:23)
[2021-09-15] MEDS: METHOCARBAMOL 500 MG TABLET PO PRN ×3 (01:04→18:09)
[2021-09-15] MEDS: LOPERAMIDE HCL 2 MG CAPSULE PO PRN ×2 (04:13→22:59)
[2021-09-15] MEDS: MENTHOL/PHENOL 1 EACH UD MM PRN ×2 (04:16→23:00)
[2021-09-15] MEDS: hydrOXYzine PAMOATE 25 MG CAPSULE (FP) PO PRN ×2 (04:16→22:39)
[2021-09-15] MEDS: chlordiazePOXIDE HCL 10 MG CAPSULE PO SCH ×2 (07:20→18:10)
[2021-09-15] MEDS: INSULIN SLIDING SCALE (NOVOLOG) 1 VIAL SQ SCH ×2 (07:54→18:10)
[2021-09-15] MEDS: TAMSULOSIN HCL 0.4 MG CAP PO SCH (10:23)
[2021-09-15] MEDS: FAMOTIDINE 20 MG TABLET PO SCH ×2 (10:23→22:36)
[2021-09-15] MEDS: amLODIPine BESYLATE 10 MG TABLET (FP) PO SCH (10:23)
[2021-09-15] MEDS: PRENATAL VITAMINS W/ FOLIC ACID TABLET (FP) PO SCH (10:23)
[2021-09-15] MEDS: DIFLUPREDNATE OD SCH ×4 (11:09→23:43)
[2021-09-15] MEDS: ILEVRO OS SCH (11:10)
[2021-09-15] MEDS: MOXIFLOXACIN OD SCH ×4 (11:10→23:44)
[2021-09-15] MEDS: traZODone HCL 50 MG TABLET (FP) PO SCH (22:35)
[2021-09-15] MEDS: ATORVASTATIN CA 20 MG TABLET (FP) PO SCH (22:36)
[2021-09-15] MEDS: MELATONIN 5 MG TABLETS PO PRN (22:36)
[2021-09-15] MEDS: THIAMINE HCL 100 MG TABLET (FP) PO SCH (22:36)
[2021-09-15] MEDS: IBUPROFEN 400 MG TABLET (FP) PO PRN (22:39)
[2021-09-16] MEDS ORDERED: chlordiazePOXIDE HCL 10 MG CAPSULE PO ONE (05:00)
[2021-09-16] MEDS: METHOCARBAMOL 500 MG TABLET PO PRN (06:07)
[2021-09-16] MEDS: INSULIN SLIDING SCALE (NOVOLOG) 1 VIAL SQ SCH ×2 (06:56→17:40)
[2021-09-16 08:36] VITALS: BP 121/76; PULSE 64; TEMP 98.3
[2021-09-16] MEDS: TAMSULOSIN HCL 0.4 MG CAP PO SCH (09:11)
[2021-09-16] MEDS: ILEVRO OS SCH (10:34)
[2021-09-16] MEDS: DIFLUPREDNATE OD SCH ×3 (10:34→17:41)
[2021-09-16] MEDS: MOXIFLOXACIN OD SCH ×3 (10:34→17:56)
[2021-09-16] MEDS: FAMOTIDINE 20 MG TABLET PO SCH (10:35)
[2021-09-16] MEDS: PRENATAL VITAMINS W/ FOLIC ACID TABLET (FP) PO SCH (10:35)
[2021-09-16] MEDS: amLODIPine BESYLATE 10 MG TABLET (FP) PO SCH (10:35)
[2021-09-16] MEDS: LOPERAMIDE HCL 2 MG CAPSULE PO PRN (12:37)
== END 2021-09-16 18:00 | disposition other institution (70) | DRG 897 ==
LOC: YASAS 08:30 → Y3N 13:22
PROVIDERS: ADMIT Allergy & Immunology; ATTEND Allergy & Immunology
PROC: HZ2ZZZZ Detoxification Services for Substance Abuse Treatment (ICD-10-PCS; principal; 2021-09-11)
DX: F10.230 Alcohol dependence with withdrawal, uncomplicated (principal); F10.220 Alcohol dependence with intoxication, uncomplicated; F10.280 Alcohol dependence with alcohol-induced anxiety disorder; F10.282 Alcohol dependence with alcohol-induced sleep disorder; F41.9 Anxiety disorder, unspecified; F32.A Depression, unspecified; I10 Essential (primary) hypertension; K21.9 Gastro-esophageal reflux disease without esophagitis; E11.65 Type 2 diabetes mellitus with hyperglycemia; Z79.84 Long term (current) use of oral hypoglycemic drugs; J45.20 Mild intermittent asthma, uncomplicated; N40.0 Benign prostatic hyperplasia without lower urinary tract symptoms; R79.89 Other specified abnormal findings of blood chemistry; Z96.652 Presence of left artificial knee joint; Z99.89 Dependence on other enabling machines and devices; Z98.2 Presence of cerebrospinal fluid drainage device
CPT/HCPCS: 36415; 80053; 82962; 85027; 86780; 87811; C9803-CS; U0003; U0005

== ENCOUNTER 2021-09-16 18:05 | Inpatient (IN) | payer OTHER ==
[2021-09-16] MEDS ORDERED: MAG HYDROX/AL HYDROX/SIMETH 30 ML UNIT-DOSE CUP PO PRN (18:43)
[2021-09-16] MEDS ORDERED: P-EPHED 60MG/TRIPROLIDI 2.5MG TABLET PO PRN (18:43)
[2021-09-16] MEDS ORDERED: MAGNESIUM CITRATE 300 ML BOTTLE PO PRN (18:43)
[2021-09-16] MEDS ORDERED: MAGNESIUM HYDROX 2400MG/30ML ORAL SUSPENSION 30 ML CUP PO PRN (18:43)
[2021-09-16] MEDS ORDERED: NICOTINE 10 MG CARTRIDGE (INHALER) IH PRN (18:43)
[2021-09-16] MEDS ORDERED: MENTHOL/PHENOL 1 EACH UD MM PRN (18:43)
[2021-09-16] MEDS ORDERED: ACETAMINOPHEN 325 MG TABLET (FP) PO PRN (18:43)
[2021-09-16] MEDS: MELATONIN 5 MG TABLETS PO SCH (21:38)
[2021-09-16] MEDS: ATORVASTATIN CA 20 MG TABLET (FP) PO SCH (21:38)
[2021-09-16] MEDS: METHOCARBAMOL 500 MG TABLET PO SCH (21:38)
[2021-09-16] MEDS: THIAMINE HCL 100 MG TABLET (FP) PO SCH (21:38)
[2021-09-16] MEDS: FAMOTIDINE 20 MG TABLET PO SCH (21:39)
[2021-09-16] MEDS: DIFLUPREDNATE OD SCH (21:49)
[2021-09-16] MEDS: INSULIN SLIDING SCALE (NOVOLOG) 1 VIAL SQ SCH (21:50)
[2021-09-16] MEDS: MOXIFLOXACIN OD SCH (21:50)
[2021-09-16] MEDS ORDERED: hydrOXYzine PAMOATE 25 MG CAPSULE (FP) PO SCH (22:00)
[2021-09-16] MEDS ORDERED: traZODone HCL 100 MG TABLET (FP) PO SCH (22:00)
[2021-09-16] MEDS ORDERED: MOXIFLOXACIN OD SCH (22:00)
[2021-09-16] MEDS: guaiFENesin 200 MG/10 ML 10 ML UNIT-DOSE CUPS PO PRN (22:54)
[2021-09-17] MEDS: LOPERAMIDE HCL 2 MG CAPSULE PO PRN ×2 (00:59→08:03)
[2021-09-17] MEDS: hydrOXYzine PAMOATE 25 MG CAPSULE (FP) PO PRN (01:22)
[2021-09-17] MEDS ORDERED: LOPERAMIDE HCL 2 MG CAPSULE PO ONE (04:07)
[2021-09-17] MEDS: MOXIFLOXACIN OD SCH ×3 (06:51→22:51)
[2021-09-17] MEDS ORDERED: INSULIN SLIDING SCALE (NOVOLOG) 1 VIAL SQ ONE ×2 (07:44→22:56)
[2021-09-17] MEDS: INSULIN SLIDING SCALE (NOVOLOG) 1 VIAL SQ SCH ×4 (08:00→23:15)
[2021-09-17] MEDS: TAMSULOSIN HCL 0.4 MG CAP PO SCH (08:06)
[2021-09-17] MEDS: DIFLUPREDNATE OD SCH ×4 (09:29→22:50)
[2021-09-17] MEDS: LORATADINE 10 MG TABLET PO SCH (09:30)
[2021-09-17] MEDS: ILEVRO OS SCH (09:30)
[2021-09-17] MEDS: FAMOTIDINE 20 MG TABLET PO SCH ×2 (09:30→22:49)
[2021-09-17] MEDS: amLODIPine BESYLATE 10 MG TABLET (FP) PO SCH (09:30)
[2021-09-17] MEDS: PRENATAL VITAMINS W/ FOLIC ACID TABLET (FP) PO SCH (09:30)
[2021-09-17] MEDS: NICOTINE 7 MG/24 HOURS TOPICAL PATCH TD SCH (09:31)
[2021-09-17] MEDS: METHOCARBAMOL 500 MG TABLET PO SCH ×4 (11:20→22:48)
[2021-09-17] MEDS: THIAMINE HCL 100 MG TABLET (FP) PO SCH (22:47)
[2021-09-17] MEDS: ATORVASTATIN CA 20 MG TABLET (FP) PO SCH (22:47)
[2021-09-17] MEDS: traZODone HCL 100 MG TABLET (FP) PO SCH (22:48)
[2021-09-17] MEDS: MELATONIN 5 MG TABLETS PO SCH (22:48)
[2021-09-17] MEDS: guaiFENesin 200 MG/10 ML 10 ML UNIT-DOSE CUPS PO PRN (23:57)
[2021-09-18] MEDS: MOXIFLOXACIN OD SCH ×3 (06:42→22:49)
[2021-09-18] MEDS: INSULIN SLIDING SCALE (NOVOLOG) 1 VIAL SQ SCH ×4 (06:59→22:50)
[2021-09-18] MEDS: LORATADINE 10 MG TABLET PO SCH (09:50)
[2021-09-18] MEDS: FAMOTIDINE 20 MG TABLET PO SCH ×2 (09:50→22:37)
[2021-09-18] MEDS: PRENATAL VITAMINS W/ FOLIC ACID TABLET (FP) PO SCH (09:50)
[2021-09-18] MEDS: hydrOXYzine PAMOATE 25 MG CAPSULE (FP) PO PRN (09:51)
[2021-09-18] MEDS: amLODIPine BESYLATE 10 MG TABLET (FP) PO SCH (09:51)
[2021-09-18] MEDS: TAMSULOSIN HCL 0.4 MG CAP PO SCH (09:51)
[2021-09-18] MEDS: LIDOCAINE 5% TOPICAL PATCH TP SCH (09:51)
[2021-09-18] MEDS: NICOTINE 7 MG/24 HOURS TOPICAL PATCH TD SCH (09:51)
[2021-09-18] MEDS: METHOCARBAMOL 500 MG TABLET PO SCH ×4 (09:51→22:37)
[2021-09-18] MEDS: ILEVRO OS SCH (09:52)
[2021-09-18] MEDS: DIFLUPREDNATE OD SCH ×4 (09:52→22:38)
[2021-09-18] MEDS: LOPERAMIDE HCL 2 MG CAPSULE PO PRN ×2 (09:54→15:02)
[2021-09-18] MEDS ORDERED: INSULIN SLIDING SCALE (NOVOLOG) 1 VIAL SQ ONE (11:58)
[2021-09-18] MEDS: IBUPROFEN 400 MG TABLET (FP) PO PRN (18:20)
[2021-09-18] MEDS: THIAMINE HCL 100 MG TABLET (FP) PO SCH (22:37)
[2021-09-18] MEDS: traZODone HCL 100 MG TABLET (FP) PO SCH (22:37)
[2021-09-18] MEDS: ATORVASTATIN CA 20 MG TABLET (FP) PO SCH (22:37)
[2021-09-18] MEDS: LIDOCAINE PATCH REMOVAL MC SCH (22:37)
[2021-09-18] MEDS: MELATONIN 5 MG TABLETS PO SCH (22:49)
[2021-09-19] MEDS: guaiFENesin 200 MG/10 ML 10 ML UNIT-DOSE CUPS PO PRN (00:33)
[2021-09-19] MEDS: IBUPROFEN 400 MG TABLET (FP) PO PRN (01:11)
[2021-09-19] MEDS: MOXIFLOXACIN OD SCH ×3 (06:50→22:30)
[2021-09-19] MEDS: INSULIN SLIDING SCALE (NOVOLOG) 1 VIAL SQ SCH ×4 (06:59→22:14)
[2021-09-19] MEDS: TAMSULOSIN HCL 0.4 MG CAP PO SCH (09:29)
[2021-09-19] MEDS: amLODIPine BESYLATE 10 MG TABLET (FP) PO SCH (10:41)
[2021-09-19] MEDS: FAMOTIDINE 20 MG TABLET PO SCH ×2 (10:41→22:14)
[2021-09-19] MEDS: LORATADINE 10 MG TABLET PO SCH (10:41)
[2021-09-19] MEDS: METHOCARBAMOL 500 MG TABLET PO SCH ×4 (10:41→22:14)
[2021-09-19] MEDS: PRENATAL VITAMINS W/ FOLIC ACID TABLET (FP) PO SCH (10:41)
[2021-09-19] MEDS: NICOTINE 7 MG/24 HOURS TOPICAL PATCH TD SCH (10:42)
[2021-09-19] MEDS: DIFLUPREDNATE OD SCH ×4 (10:44→22:17)
[2021-09-19] MEDS: ILEVRO OS SCH (10:44)
[2021-09-19] MEDS: LIDOCAINE 5% TOPICAL PATCH TP SCH (10:59)
[2021-09-19] MEDS ORDERED: INSULIN SLIDING SCALE (NOVOLOG) 1 VIAL SQ ONE (12:12)
[2021-09-19] MEDS: THIAMINE HCL 100 MG TABLET (FP) PO SCH (22:14)
[2021-09-19] MEDS: traZODone HCL 100 MG TABLET (FP) PO SCH (22:14)
[2021-09-19] MEDS: ATORVASTATIN CA 20 MG TABLET (FP) PO SCH (22:14)
[2021-09-19] MEDS: MELATONIN 5 MG TABLETS PO SCH (22:16)
[2021-09-19] MEDS: LIDOCAINE PATCH REMOVAL MC SCH (22:17)
[2021-09-20] MEDS: MOXIFLOXACIN OD SCH ×3 (06:50→22:16)
[2021-09-20] MEDS: INSULIN SLIDING SCALE (NOVOLOG) 1 VIAL SQ SCH ×4 (06:58→22:17)
[2021-09-20] MEDS: amLODIPine BESYLATE 10 MG TABLET (FP) PO SCH (10:24)
[2021-09-20] MEDS: PRENATAL VITAMINS W/ FOLIC ACID TABLET (FP) PO SCH (10:24)
[2021-09-20] MEDS: TAMSULOSIN HCL 0.4 MG CAP PO SCH (10:24)
[2021-09-20] MEDS: FAMOTIDINE 20 MG TABLET PO SCH ×2 (10:25→21:39)
[2021-09-20] MEDS: DIFLUPREDNATE OD SCH ×4 (10:25→22:20)
[2021-09-20] MEDS: ILEVRO OS SCH (10:25)
[2021-09-20] MEDS: METHOCARBAMOL 500 MG TABLET PO SCH ×4 (10:25→21:39)
[2021-09-20] MEDS: LORATADINE 10 MG TABLET PO SCH (10:25)
[2021-09-20] MEDS: NICOTINE 7 MG/24 HOURS TOPICAL PATCH TD SCH (10:27)
[2021-09-20] MEDS: LIDOCAINE 5% TOPICAL PATCH TP SCH (10:28)
[2021-09-20] MEDS: guaiFENesin 200 MG/10 ML 10 ML UNIT-DOSE CUPS PO PRN (13:10)
[2021-09-20] MEDS: IBUPROFEN 400 MG TABLET (FP) PO PRN ×2 (13:10→18:20)
[2021-09-20] MEDS: THIAMINE HCL 100 MG TABLET (FP) PO SCH (21:39)
[2021-09-20] MEDS: traZODone HCL 100 MG TABLET (FP) PO SCH (21:39)
[2021-09-20] MEDS: ATORVASTATIN CA 20 MG TABLET (FP) PO SCH (21:39)
[2021-09-20] MEDS: MELATONIN 5 MG TABLETS PO SCH (22:11)
[2021-09-20] MEDS: LIDOCAINE PATCH REMOVAL MC SCH (22:11)
[2021-09-21 05:08] LABS: SARS-CoV-2 NAA Not Detected (Not Detected)
[2021-09-21] MEDS: MOXIFLOXACIN OD SCH ×3 (06:36→21:47)
[2021-09-21] MEDS: INSULIN SLIDING SCALE (NOVOLOG) 1 VIAL SQ SCH ×4 (06:43→21:47)
[2021-09-21] MEDS: amLODIPine BESYLATE 10 MG TABLET (FP) PO SCH (10:19)
[2021-09-21] MEDS: LORATADINE 10 MG TABLET PO SCH (10:19)
[2021-09-21] MEDS: PRENATAL VITAMINS W/ FOLIC ACID TABLET (FP) PO SCH (10:19)
[2021-09-21] MEDS: TAMSULOSIN HCL 0.4 MG CAP PO SCH (10:19)
[2021-09-21] MEDS: METHOCARBAMOL 500 MG TABLET PO SCH ×4 (10:19→21:44)
[2021-09-21] MEDS: FAMOTIDINE 20 MG TABLET PO SCH ×2 (10:19→21:43)
[2021-09-21] MEDS: NICOTINE 7 MG/24 HOURS TOPICAL PATCH TD SCH (10:19)
[2021-09-21] MEDS: LIDOCAINE 5% TOPICAL PATCH TP SCH (10:20)
[2021-09-21] MEDS: ILEVRO OS SCH (10:23)
[2021-09-21] MEDS: DIFLUPREDNATE OD SCH ×4 (10:23→21:47)
[2021-09-21] MEDS: traZODone HCL 100 MG TABLET (FP) PO SCH (21:43)
[2021-09-21] MEDS: THIAMINE HCL 100 MG TABLET (FP) PO SCH (21:43)
[2021-09-21] MEDS: MELATONIN 5 MG TABLETS PO SCH (21:43)
[2021-09-21] MEDS: ATORVASTATIN CA 20 MG TABLET (FP) PO SCH (21:43)
[2021-09-21] MEDS: IBUPROFEN 400 MG TABLET (FP) PO PRN (21:44)
[2021-09-21] MEDS: LIDOCAINE PATCH REMOVAL MC SCH (21:47)
[2021-09-22] MEDS: LOPERAMIDE HCL 2 MG CAPSULE PO PRN (05:00)
[2021-09-22 05:46] VITALS: BP 136/82; PULSE 91; TEMP 96.4
[2021-09-22] MEDS: MOXIFLOXACIN OD SCH (06:02)
[2021-09-22] MEDS: INSULIN SLIDING SCALE (NOVOLOG) 1 VIAL SQ SCH (06:38)
[2021-09-22] MEDS: TAMSULOSIN HCL 0.4 MG CAP PO SCH (09:24)
[2021-09-22] MEDS: METHOCARBAMOL 500 MG TABLET PO SCH (09:24)
[2021-09-22] MEDS: LORATADINE 10 MG TABLET PO SCH (09:24)
[2021-09-22] MEDS: amLODIPine BESYLATE 10 MG TABLET (FP) PO SCH (09:24)
[2021-09-22] MEDS: FAMOTIDINE 20 MG TABLET PO SCH (09:24)
[2021-09-22] MEDS: LIDOCAINE 5% TOPICAL PATCH TP SCH (09:25)
[2021-09-22] MEDS: ILEVRO OS SCH (09:26)
[2021-09-22] MEDS: DIFLUPREDNATE OD SCH (09:26)
[2021-09-22] MEDS: NICOTINE 7 MG/24 HOURS TOPICAL PATCH TD SCH (09:26)
[2021-09-22] MEDS: PRENATAL VITAMINS W/ FOLIC ACID TABLET (FP) PO SCH (09:26)
== END 2021-09-22 09:47 | disposition home or self-care (01) | DRG 895 ==
LOC: YASAS 18:05 → Y3W 18:07
PROVIDERS: ADMIT Allergy & Immunology; ATTEND Allergy & Immunology
PROC: HZ42ZZZ Group Counseling for Substance Abuse Treatment, Cognitive-Behavioral (ICD-10-PCS; principal; 2021-09-16)
DX: F10.20 Alcohol dependence, uncomplicated (principal); F10.282 Alcohol dependence with alcohol-induced sleep disorder; F10.280 Alcohol dependence with alcohol-induced anxiety disorder; F32.A Depression, unspecified; I10 Essential (primary) hypertension; R78.5 Finding of other psychotropic drug in blood; J45.20 Mild intermittent asthma, uncomplicated; K21.9 Gastro-esophageal reflux disease without esophagitis; N40.0 Benign prostatic hyperplasia without lower urinary tract symptoms; R19.7 Diarrhea, unspecified; M19.90 Unspecified osteoarthritis, unspecified site; H40.9 Unspecified glaucoma; R26.2 Difficulty in walking, not elsewhere classified; Z99.89 Dependence on other enabling machines and devices; Z79.84 Long term (current) use of oral hypoglycemic drugs
CPT/HCPCS: 82962; C9803-CS; U0003; U0005

== ENCOUNTER 2021-09-17 13:00 | Emergency (ER) | payer OTHER ==
[2021-09-17 13:22] VITALS: TEMP 97.8; BMI 37.7
[2021-09-17] MEDS ORDERED: SODIUM CHLORIDE 1,000 ML IV STA (13:28)
[2021-09-17 14:51] LABS: EOS % 4.3 % (0-4.5); HEMATOCRIT 39.9 % (35.4-49); LYMPH % 14.7 % (8-40); MCH 25.8 pg (25.7-33.7); MCHC 32.6 g/dl (32.0-35.9); MEAN CELL VOLUME 79.1 fl (80-96); MEAN PLT VOLUME 8.2 fl (7.5-11.1); MONO % 7.9 % (3.8-10.2); NEUT % 72.1 % (42.8-82.8); PLATELET COUNT 240 10^3/uL (134-434); RBC 5.05 M/mm3 (4.00-5.60); RDW 17.6 % (11.9-15.9); WHITE BLOOD COUNT 8.1 K/mm3 (4.0-10.0)
[2021-09-17 15:13] LABS: CALCIUM 9.5 mg/dL (8.5-10.1)
[2021-09-17 15:14] LABS: ALBUMIN 3.6 g/dl (3.4-5.0); BLOOD UREA NITROGEN 12.2 mg/dL (7-18)
[2021-09-17 15:18] LABS: BILIRUBIN,TOTAL 0.3 mg/dL (0.2-1); TOT PROT 6.9 g/dl (6.4-8.2)
[2021-09-17 18:40] VITALS: BP 150/83; PULSE 88
[2021-09-17 18:50] LABS: HIV INTERPRETATION NEGATIVE (NEGATIVE)
== END 2021-09-17 19:46 | disposition home or self-care (01) ==
LOC: JER 13:00
PROC: 3E0337Z Introduction of Electrolytic and Water Balance Substance into Peripheral Vein, Percutaneous Approach (ICD-10-PCS; principal; 2021-09-17)
DX: R10.84 Generalized abdominal pain (principal); R19.7 Diarrhea, unspecified
CPT/HCPCS: 36415; 74177-TC; 80053; 85025; 87389; 99285-25; Q9967

== ENCOUNTER 2021-10-20 09:24 | Inpatient (IN) | payer OTHER ==
[2021-10-20] MEDS ORDERED: MAGNESIUM HYDROX 2400MG/30ML ORAL SUSPENSION 30 ML CUP PO PRN (09:47)
[2021-10-20] MEDS ORDERED: DICYCLOMINE HCL 10 MG CAPSULE PO PRN (09:47)
[2021-10-20] MEDS ORDERED: IBUPROFEN 400 MG TABLET (FP) PO PRN (09:47)
[2021-10-20] MEDS ORDERED: BISMUTH SUBSALICYLATE 262 MG/15 ML BTL PO PRN (09:47)
[2021-10-20] MEDS ORDERED: LORazepam 1 MG TABLET PO PRN (09:47)
[2021-10-20] MEDS ORDERED: MAG HYDROX/AL HYDROX/SIMETH 30 ML UNIT-DOSE CUP PO PRN (09:47)
[2021-10-20] MEDS ORDERED: MAGNESIUM CITRATE 300 ML BOTTLE PO PRN (09:47)
[2021-10-20] MEDS ORDERED: ACETAMINOPHEN 325 MG TABLET (FP) PO PRN ×2 (09:47)
[2021-10-20] MEDS ORDERED: LOPERAMIDE HCL 2 MG CAPSULE PO PRN (09:47)
[2021-10-20] MEDS ORDERED: ONDANSETRON *ODT* 4 MG TABLET SL PRN (09:47)
[2021-10-20] MEDS ORDERED: BENZOCAINE/MENTHOL (CHLORASEPTIC ) LOZENGE MM PRN (09:47)
[2021-10-20] MEDS ORDERED: hydrOXYzine PAMOATE 25 MG CAPSULE (FP) PO SCH (10:00)
[2021-10-20 10:45] VITALS: BMI 36.3
[2021-10-20] MEDS: LORazepam 2 MG TABLET PO SCH ×3 (12:00→22:14)
[2021-10-20] MEDS ORDERED: hydrOXYzine PAMOATE 25 MG CAPSULE (FP) PO PRN (12:28)
[2021-10-20] MEDS: PRENATAL VITAMINS W/ FOLIC ACID TABLET (FP) PO SCH (15:37)
[2021-10-20] MEDS: TAMSULOSIN HCL 0.4 MG CAP PO SCH (16:43)
[2021-10-20] MEDS: LORATADINE 10 MG TABLET PO SCH (16:43)
[2021-10-20] MEDS: DAPAGLIFLOZIN PROPANEDIOL 5 MG TABLET PO SCH (16:43)
[2021-10-20] MEDS: GABAPENTIN 300 MG CAPSULE PO SCH ×2 (16:44→22:14)
[2021-10-20] MEDS: FAMOTIDINE 20 MG TABLET PO SCH ×2 (16:44→22:14)
[2021-10-20] MEDS: amLODIPine BESYLATE 10 MG TABLET (FP) PO SCH (16:44)
[2021-10-20 17:11] LABS: HEMOGLOBIN 12.1 GM/dL (11.7-16.9); MCH 25.4 pg (25.7-33.7); MCHC 31.9 g/dl (32.0-35.9); MEAN CELL VOLUME 79.7 fl (80-96); MEAN PLT VOLUME 7.9 fl (7.5-11.1); PLATELET COUNT 253 10^3/uL (134-434); RBC 4.77 M/mm3 (4.00-5.60); RDW 16.6 % (11.9-15.9); WHITE BLOOD COUNT 5.5 K/mm3 (4.0-10.0)
[2021-10-20 17:41] LABS: ALBUMIN 3.4 g/dl (3.4-5.0); BLOOD UREA NITROGEN 13.6 mg/dL (7-18); CALCIUM 8.7 mg/dL (8.5-10.1)
[2021-10-20 17:45] LABS: CREATININE 1.1 mg/dL (0.55-1.3)
[2021-10-20 17:46] LABS: BILIRUBIN,TOTAL 0.5 mg/dL (0.2-1); TOT PROT 6.5 g/dl (6.4-8.2)
[2021-10-20] MEDS: MELATONIN 5 MG TABLETS PO SCH (22:14)
[2021-10-20] MEDS: ATORVASTATIN CA 20 MG TABLET (FP) PO SCH (22:14)
[2021-10-20] MEDS: THIAMINE HCL 100 MG TABLET (FP) PO SCH (22:14)
[2021-10-20] MEDS: METHOCARBAMOL 500 MG TABLET PO PRN (22:15)
[2021-10-21] MEDS: LORazepam 2 MG TABLET PO SCH ×4 (05:57→22:39)
[2021-10-21] MEDS: METHOCARBAMOL 500 MG TABLET PO PRN (06:02)
[2021-10-21] MEDS: DAPAGLIFLOZIN PROPANEDIOL 5 MG TABLET PO SCH (07:23)
[2021-10-21] MEDS: GABAPENTIN 300 MG CAPSULE PO SCH ×2 (10:15→22:39)
[2021-10-21] MEDS: TAMSULOSIN HCL 0.4 MG CAP PO SCH (10:15)
[2021-10-21] MEDS: FAMOTIDINE 20 MG TABLET PO SCH ×2 (10:15→22:39)
[2021-10-21] MEDS: LORATADINE 10 MG TABLET PO SCH (10:15)
[2021-10-21] MEDS: PRENATAL VITAMINS W/ FOLIC ACID TABLET (FP) PO SCH (10:16)
[2021-10-21] MEDS: amLODIPine BESYLATE 10 MG TABLET (FP) PO SCH (10:16)
[2021-10-21] MEDS: INSULIN SLIDING SCALE (NOVOLOG) 1 VIAL SQ SCH (18:46)
[2021-10-21] MEDS: THIAMINE HCL 100 MG TABLET (FP) PO SCH (22:38)
[2021-10-21] MEDS: MELATONIN 5 MG TABLETS PO SCH (22:38)
[2021-10-21] MEDS: ATORVASTATIN CA 20 MG TABLET (FP) PO SCH (22:39)
[2021-10-21] MEDS: traZODone HCL 100 MG TABLET (FP) PO SCH (22:40)
[2021-10-22] MEDS: LORazepam 1 MG TABLET PO SCH ×4 (05:26→22:23)
[2021-10-22] MEDS: METHOCARBAMOL 500 MG TABLET PO PRN (05:28)
[2021-10-22] MEDS: INSULIN SLIDING SCALE (NOVOLOG) 1 VIAL SQ SCH ×2 (06:46→18:30)
[2021-10-22] MEDS: DAPAGLIFLOZIN PROPANEDIOL 5 MG TABLET PO SCH (06:46)
[2021-10-22] MEDS: TAMSULOSIN HCL 0.4 MG CAP PO SCH (10:20)
[2021-10-22] MEDS: amLODIPine BESYLATE 10 MG TABLET (FP) PO SCH (10:20)
[2021-10-22] MEDS: LORATADINE 10 MG TABLET PO SCH (10:20)
[2021-10-22] MEDS: PRENATAL VITAMINS W/ FOLIC ACID TABLET (FP) PO SCH (10:20)
[2021-10-22] MEDS: FAMOTIDINE 20 MG TABLET PO SCH ×2 (10:20→22:23)
[2021-10-22] MEDS: GABAPENTIN 300 MG CAPSULE PO SCH ×2 (10:20→22:22)
[2021-10-22 14:09] LABS: SARS-CoV-2 NAA Not Detected (Not Detected)
[2021-10-22] MEDS: ATORVASTATIN CA 20 MG TABLET (FP) PO SCH (22:22)
[2021-10-22] MEDS: traZODone HCL 100 MG TABLET (FP) PO SCH (22:23)
[2021-10-22] MEDS: THIAMINE HCL 100 MG TABLET (FP) PO SCH (22:23)
[2021-10-22] MEDS: MELATONIN 5 MG TABLETS PO SCH (22:23)
[2021-10-23] MEDS ORDERED: LORazepam 0.5 MG TABLET PO PRN
[2021-10-23] MEDS: LORazepam 0.5 MG TABLET PO SCH ×4 (06:43→22:46)
[2021-10-23] MEDS: INSULIN SLIDING SCALE (NOVOLOG) 1 VIAL SQ SCH ×2 (06:44→17:34)
[2021-10-23] MEDS: DAPAGLIFLOZIN PROPANEDIOL 5 MG TABLET PO SCH (07:30)
[2021-10-23] MEDS: TAMSULOSIN HCL 0.4 MG CAP PO SCH (07:30)
[2021-10-23] MEDS: PRENATAL VITAMINS W/ FOLIC ACID TABLET (FP) PO SCH (10:36)
[2021-10-23] MEDS: FAMOTIDINE 20 MG TABLET PO SCH ×2 (10:36→22:45)
[2021-10-23] MEDS: amLODIPine BESYLATE 10 MG TABLET (FP) PO SCH (10:36)
[2021-10-23] MEDS: LORATADINE 10 MG TABLET PO SCH (10:36)
[2021-10-23] MEDS: GABAPENTIN 300 MG CAPSULE PO SCH ×2 (10:36→22:45)
[2021-10-23] MEDS: METHOCARBAMOL 500 MG TABLET PO PRN (10:38)
[2021-10-23] MEDS: ATORVASTATIN CA 20 MG TABLET (FP) PO SCH (22:45)
[2021-10-23] MEDS: MELATONIN 5 MG TABLETS PO SCH (22:45)
[2021-10-23] MEDS: THIAMINE HCL 100 MG TABLET (FP) PO SCH (22:45)
[2021-10-23] MEDS: traZODone HCL 100 MG TABLET (FP) PO SCH (22:45)
[2021-10-24] MEDS ORDERED: LORazepam 0.5 MG TABLET PO ONE (05:00)
[2021-10-24] MEDS: DAPAGLIFLOZIN PROPANEDIOL 5 MG TABLET PO SCH (06:27)
[2021-10-24] MEDS: INSULIN SLIDING SCALE (NOVOLOG) 1 VIAL SQ SCH (06:44)
[2021-10-24 09:33] VITALS: BP 140/83; PULSE 96; TEMP 97.2
[2021-10-24] MEDS: GABAPENTIN 300 MG CAPSULE PO SCH (10:23)
[2021-10-24] MEDS: LORATADINE 10 MG TABLET PO SCH (10:23)
[2021-10-24] MEDS: PRENATAL VITAMINS W/ FOLIC ACID TABLET (FP) PO SCH (10:23)
[2021-10-24] MEDS: TAMSULOSIN HCL 0.4 MG CAP PO SCH (10:23)
[2021-10-24] MEDS: amLODIPine BESYLATE 10 MG TABLET (FP) PO SCH (10:23)
[2021-10-24] MEDS: FAMOTIDINE 20 MG TABLET PO SCH (10:23)
[2021-10-24] MEDS: METHOCARBAMOL 500 MG TABLET PO PRN (10:24)
== END 2021-10-24 12:38 | disposition home or self-care (01) | DRG 897 ==
LOC: YASAS 09:24 → Y3N 12:02
PROVIDERS: ADMIT Allergy & Immunology; ATTEND Allergy & Immunology
PROC: HZ2ZZZZ Detoxification Services for Substance Abuse Treatment (ICD-10-PCS; principal; 2021-10-20)
DX: F10.230 Alcohol dependence with withdrawal, uncomplicated (principal); F10.280 Alcohol dependence with alcohol-induced anxiety disorder; F10.282 Alcohol dependence with alcohol-induced sleep disorder; E78.5 Hyperlipidemia, unspecified; E11.40 Type 2 diabetes mellitus with diabetic neuropathy, unspecified; I10 Essential (primary) hypertension; J45.909 Unspecified asthma, uncomplicated; K21.9 Gastro-esophageal reflux disease without esophagitis; N40.0 Benign prostatic hyperplasia without lower urinary tract symptoms; Z96.652 Presence of left artificial knee joint; Z98.2 Presence of cerebrospinal fluid drainage device; Z87.891 Personal history of nicotine dependence; Z99.89 Dependence on other enabling machines and devices
CPT/HCPCS: 36415; 80053; 82962; 85027; 86780; 87811; C9803-CS; U0003; U0005

== ENCOUNTER 2021-10-25 13:29 | Inpatient (IN) | payer OTHER ==
[2021-10-25] MEDS ORDERED: BENZOCAINE/MENTHOL (CHLORASEPTIC ) LOZENGE MM PRN (17:10)
[2021-10-25] MEDS ORDERED: NICOTINE 10 MG CARTRIDGE (INHALER) IH PRN (17:10)
[2021-10-25] MEDS ORDERED: BISMUTH SUBSALICYLATE 524 MG/30 ML PO PRN (17:10)
[2021-10-25] MEDS ORDERED: ONDANSETRON *ODT* 4 MG TABLET SL PRN (17:10)
[2021-10-25] MEDS ORDERED: MAGNESIUM CITRATE 300 ML BOTTLE PO PRN (17:10)
[2021-10-25] MEDS ORDERED: LOPERAMIDE HCL 2 MG CAPSULE PO PRN (17:10)
[2021-10-25] MEDS ORDERED: ACETAMINOPHEN 325 MG TABLET (FP) PO PRN (17:10)
[2021-10-25] MEDS ORDERED: MAGNESIUM HYDROX 2400MG/30ML ORAL SUSPENSION 30 ML CUP PO PRN (17:10)
[2021-10-25] MEDS ORDERED: DICYCLOMINE HCL 10 MG CAPSULE PO PRN (17:10)
[2021-10-25] MEDS ORDERED: PATIENT'S OWN MEDICATION (NON-FORMULARY) (Gabapentin [Gabapentin] 600 MG Tablet) PO SCH (17:15)
[2021-10-25] MEDS ORDERED: DIFLUPREDNATE OD SCH (18:00)
[2021-10-25 18:11] VITALS: BMI 36.5
[2021-10-25] MEDS: TAMSULOSIN HCL 0.4 MG CAP PO SCH (19:24)
[2021-10-25] MEDS: amLODIPine BESYLATE 10 MG TABLET (FP) PO SCH (19:24)
[2021-10-25] MEDS: hydrOXYzine PAMOATE 25 MG CAPSULE (FP) PO SCH (19:24)
[2021-10-25] MEDS: LORATADINE 10 MG TABLET PO SCH (19:24)
[2021-10-25] MEDS: PRENATAL VITAMINS W/ FOLIC ACID TABLET (FP) PO SCH (19:25)
[2021-10-25] MEDS: METHOCARBAMOL 500 MG TABLET PO PRN (19:27)
[2021-10-25] MEDS: MAG HYDROX/AL HYDROX/SIMETH 30 ML UNIT-DOSE CUP PO PRN (21:20)
[2021-10-25] MEDS ORDERED: PATIENT'S OWN MEDICATION (NON-FORMULARY) (Metformin Hcl [Metformin Er Osmotic] 1,000 MG Ta PO SCH (22:00)
[2021-10-25] MEDS: metFORMIN HCL 500 MG TABLET (FP) PO SCH (23:15)
[2021-10-25] MEDS: THIAMINE HCL 100 MG TABLET (FP) PO SCH (23:15)
[2021-10-25] MEDS: ATORVASTATIN CA 20 MG TABLET (FP) PO SCH (23:15)
[2021-10-25] MEDS: GABAPENTIN 300 MG CAPSULE PO SCH (23:15)
[2021-10-25] MEDS: FAMOTIDINE 20 MG TABLET PO SCH (23:15)
[2021-10-25] MEDS: DAPAGLIFLOZIN PROPANEDIOL 5 MG TABLET PO SCH (23:50)
[2021-10-25] MEDS: MELATONIN 5 MG TABLETS PO SCH (23:59)
[2021-10-26] MEDS: hydrOXYzine PAMOATE 25 MG CAPSULE (FP) PO SCH ×6 (00:01→22:10)
[2021-10-26] MEDS: metFORMIN HCL 500 MG TABLET (FP) PO SCH ×3 (06:08→22:40)
[2021-10-26] MEDS: INSULIN SLIDING SCALE (NOVOLOG) 1 VIAL SQ SCH ×2 (06:09→17:57)
[2021-10-26] MEDS ORDERED: diazePAM 5 MG TABLET PO PRN (10:09)
[2021-10-26] MEDS: LORATADINE 10 MG TABLET PO SCH (10:30)
[2021-10-26] MEDS: PRENATAL VITAMINS W/ FOLIC ACID TABLET (FP) PO SCH (10:30)
[2021-10-26] MEDS: amLODIPine BESYLATE 10 MG TABLET (FP) PO SCH (10:30)
[2021-10-26] MEDS: TAMSULOSIN HCL 0.4 MG CAP PO SCH (10:31)
[2021-10-26] MEDS: GABAPENTIN 300 MG CAPSULE PO SCH ×2 (10:31→22:09)
[2021-10-26] MEDS: FAMOTIDINE 20 MG TABLET PO SCH ×2 (10:31→22:09)
[2021-10-26] MEDS: METHOCARBAMOL 500 MG TABLET PO PRN ×2 (10:32→17:57)
[2021-10-26] MEDS: diazePAM 5 MG TABLET PO SCH ×3 (11:51→22:09)
[2021-10-26 15:25] LABS: HEMATOCRIT 35.6 % (35.4-49); HEMOGLOBIN 11.4 GM/dL (11.7-16.9); MCH 25.8 pg (25.7-33.7); MCHC 32.1 g/dl (32.0-35.9); MEAN CELL VOLUME 80.2 fl (80-96); MEAN PLT VOLUME 8.4 fl (7.5-11.1); PLATELET COUNT 206 10^3/uL (134-434); RBC 4.43 M/mm3 (4.00-5.60); WHITE BLOOD COUNT 7.2 K/mm3 (4.0-10.0)
[2021-10-26 15:41] LABS: BLOOD UREA NITROGEN 15.4 mg/dL (7-18); CALCIUM 8.5 mg/dL (8.5-10.1)
[2021-10-26 15:46] LABS: BILIRUBIN,TOTAL 0.3 mg/dL (0.2-1); TOT PROT 5.9 g/dl (6.4-8.2)
[2021-10-26] MEDS ORDERED: INSULIN (NOVOLOG) ASPART 100 UNITS/ML 10ML VIAL ONE (17:31)
[2021-10-26] MEDS: IBUPROFEN 400 MG TABLET (FP) PO PRN (20:08)
[2021-10-26] MEDS: ATORVASTATIN CA 20 MG TABLET (FP) PO SCH (22:09)
[2021-10-26] MEDS: THIAMINE HCL 100 MG TABLET (FP) PO SCH (22:09)
[2021-10-26] MEDS: traZODone HCL 100 MG TABLET (FP) PO SCH (22:09)
[2021-10-26] MEDS: MELATONIN 5 MG TABLETS PO SCH (22:11)
[2021-10-27] MEDS: DAPAGLIFLOZIN PROPANEDIOL 5 MG TABLET PO SCH ×2 (00:56→06:35)
[2021-10-27] MEDS: hydrOXYzine PAMOATE 25 MG CAPSULE (FP) PO SCH ×5 (05:39→23:08)
[2021-10-27] MEDS: diazePAM 5 MG TABLET PO SCH ×3 (05:39→21:56)
[2021-10-27] MEDS: METHOCARBAMOL 500 MG TABLET PO PRN ×3 (05:42→23:50)
[2021-10-27] MEDS: metFORMIN HCL 500 MG TABLET (FP) PO SCH ×2 (06:35→21:54)
[2021-10-27] MEDS: INSULIN SLIDING SCALE (NOVOLOG) 1 VIAL SQ SCH ×2 (07:44→17:26)
[2021-10-27] MEDS: FAMOTIDINE 20 MG TABLET PO SCH ×2 (10:21→21:54)
[2021-10-27] MEDS: LORATADINE 10 MG TABLET PO SCH (10:21)
[2021-10-27] MEDS: GABAPENTIN 300 MG CAPSULE PO SCH ×2 (10:21→21:53)
[2021-10-27] MEDS: TAMSULOSIN HCL 0.4 MG CAP PO SCH (10:21)
[2021-10-27] MEDS: PRENATAL VITAMINS W/ FOLIC ACID TABLET (FP) PO SCH (10:21)
[2021-10-27] MEDS: amLODIPine BESYLATE 10 MG TABLET (FP) PO SCH (10:22)
[2021-10-27 13:07] LABS: SARS-CoV-2 NAA Not Detected (Not Detected)
[2021-10-27] MEDS: ACETAMINOPHEN 325 MG TABLET (FP) PO PRN ×2 (14:12→21:57)
[2021-10-27] MEDS: MAG HYDROX/AL HYDROX/SIMETH 30 ML UNIT-DOSE CUP PO PRN (14:12)
[2021-10-27] MEDS ORDERED: NON-FORMULARY MED SQ SCH (14:45)
[2021-10-27] MEDS ORDERED: INSULIN (NOVOLOG) ASPART 100 UNITS/ML 10ML VIAL ONE (17:21)
[2021-10-27] MEDS: traZODone HCL 100 MG TABLET (FP) PO SCH (21:54)
[2021-10-27] MEDS: THIAMINE HCL 100 MG TABLET (FP) PO SCH (21:54)
[2021-10-27] MEDS: ATORVASTATIN CA 20 MG TABLET (FP) PO SCH (21:54)
[2021-10-27] MEDS: MELATONIN 5 MG TABLETS PO SCH ×2 (23:08→23:50)
[2021-10-28] MEDS: hydrOXYzine PAMOATE 25 MG CAPSULE (FP) PO SCH ×5 (05:22→22:20)
[2021-10-28] MEDS: diazePAM 5 MG TABLET PO SCH ×2 (05:22→19:13)
[2021-10-28] MEDS: METHOCARBAMOL 500 MG TABLET PO PRN ×3 (05:22→22:18)
[2021-10-28] MEDS: metFORMIN HCL 500 MG TABLET (FP) PO SCH ×2 (07:10→22:19)
[2021-10-28] MEDS: DAPAGLIFLOZIN PROPANEDIOL 5 MG TABLET PO SCH (07:10)
[2021-10-28] MEDS: INSULIN SLIDING SCALE (NOVOLOG) 1 VIAL SQ SCH ×2 (07:52→19:15)
[2021-10-28] MEDS: FAMOTIDINE 20 MG TABLET PO SCH (10:17)
[2021-10-28] MEDS: GABAPENTIN 300 MG CAPSULE PO SCH ×2 (10:17→22:20)
[2021-10-28] MEDS: PRENATAL VITAMINS W/ FOLIC ACID TABLET (FP) PO SCH (10:17)
[2021-10-28] MEDS: KETOROLAC TROMETHAMINE 0.5% EYE DROP 1 DROP DROPS OU SCH (10:17)
[2021-10-28] MEDS: LORATADINE 10 MG TABLET PO SCH (10:17)
[2021-10-28] MEDS: TAMSULOSIN HCL 0.4 MG CAP PO SCH (10:17)
[2021-10-28] MEDS: amLODIPine BESYLATE 10 MG TABLET (FP) PO SCH (10:17)
[2021-10-28] MEDS: traZODone HCL 100 MG TABLET (FP) PO SCH (22:19)
[2021-10-28] MEDS: ATORVASTATIN CA 20 MG TABLET (FP) PO SCH (22:20)
[2021-10-28] MEDS: THIAMINE HCL 100 MG TABLET (FP) PO SCH (22:20)
[2021-10-28] MEDS: MELATONIN 5 MG TABLETS PO SCH (22:21)
[2021-10-29] MEDS: IBUPROFEN 400 MG TABLET (FP) PO PRN (03:04)
[2021-10-29] MEDS: hydrOXYzine PAMOATE 25 MG CAPSULE (FP) PO SCH ×3 (05:39→14:43)
[2021-10-29] MEDS: METHOCARBAMOL 500 MG TABLET PO PRN ×2 (05:42→11:34)
[2021-10-29] MEDS ORDERED: diazePAM 5 MG TABLET PO ONE (06:00)
[2021-10-29] MEDS: DAPAGLIFLOZIN PROPANEDIOL 5 MG TABLET PO SCH (08:03)
[2021-10-29] MEDS: metFORMIN HCL 500 MG TABLET (FP) PO SCH (08:03)
[2021-10-29] MEDS: INSULIN SLIDING SCALE (NOVOLOG) 1 VIAL SQ SCH ×2 (08:04→17:26)
[2021-10-29] MEDS ORDERED: INSULIN (NOVOLOG) ASPART 100 UNITS/ML 10ML VIAL ONE (08:05)
[2021-10-29] MEDS ORDERED: PANTOPRAZOLE 40 MG TABLET PO SCH (10:00)
[2021-10-29] MEDS: PRENATAL VITAMINS W/ FOLIC ACID TABLET (FP) PO SCH (10:16)
[2021-10-29] MEDS: KETOROLAC TROMETHAMINE 0.5% EYE DROP 1 DROP DROPS OU SCH (10:16)
[2021-10-29] MEDS: TAMSULOSIN HCL 0.4 MG CAP PO SCH (10:17)
[2021-10-29] MEDS: amLODIPine BESYLATE 10 MG TABLET (FP) PO SCH (10:17)
[2021-10-29] MEDS: LORATADINE 10 MG TABLET PO SCH (10:17)
[2021-10-29] MEDS: GABAPENTIN 300 MG CAPSULE PO SCH (10:17)
[2021-10-29 13:42] VITALS: BP 148/72; PULSE 106; TEMP 97.3
== END 2021-10-29 17:45 | disposition other institution (70) | DRG 897 ==
LOC: YASAS 13:29 → Y6N 18:19 → UNDOADMIN 18:19
PROVIDERS: ADMIT Allergy & Immunology; ATTEND Allergy & Immunology
PROC: HZ2ZZZZ Detoxification Services for Substance Abuse Treatment (ICD-10-PCS; principal; 2021-10-25)
DX: F10.230 Alcohol dependence with withdrawal, uncomplicated (principal); F10.280 Alcohol dependence with alcohol-induced anxiety disorder; F10.282 Alcohol dependence with alcohol-induced sleep disorder; F10.24 Alcohol dependence with alcohol-induced mood disorder; F17.210 Nicotine dependence, cigarettes, uncomplicated; F41.9 Anxiety disorder, unspecified; F32.A Depression, unspecified; E78.5 Hyperlipidemia, unspecified; E11.9 Type 2 diabetes mellitus without complications; I10 Essential (primary) hypertension; J45.20 Mild intermittent asthma, uncomplicated; K21.9 Gastro-esophageal reflux disease without esophagitis; N40.0 Benign prostatic hyperplasia without lower urinary tract symptoms; Z96.652 Presence of left artificial knee joint; E66.9 Obesity, unspecified; Z68.36 Body mass index [BMI] 36.0-36.9, adult; Z99.89 Dependence on other enabling machines and devices; Z98.2 Presence of cerebrospinal fluid drainage device
CPT/HCPCS: 36415; 80053; 82962; 85027; 86780; C9803-CS; U0003; U0005

== ENCOUNTER 2021-10-29 18:04 | Inpatient (IN) | payer OTHER ==
[2021-10-29] MEDS ORDERED: BENZOCAINE/MENTHOL (CHLORASEPTIC ) LOZENGE MM PRN (19:25)
[2021-10-29] MEDS ORDERED: ACETAMINOPHEN 325 MG TABLET (FP) PO PRN (19:25)
[2021-10-29] MEDS ORDERED: NICOTINE 10 MG CARTRIDGE (INHALER) IH PRN (19:25)
[2021-10-29] MEDS ORDERED: LOPERAMIDE HCL 2 MG CAPSULE PO PRN (19:25)
[2021-10-29] MEDS ORDERED: guaiFENesin 200 MG/10 ML 10 ML UNIT-DOSE CUPS PO PRN (19:25)
[2021-10-29] MEDS ORDERED: MAGNESIUM HYDROX 2400MG/30ML ORAL SUSPENSION 30 ML CUP PO PRN (19:25)
[2021-10-29] MEDS ORDERED: MAG HYDROX/AL HYDROX/SIMETH 30 ML UNIT-DOSE CUP PO PRN (19:25)
[2021-10-29] MEDS ORDERED: MAGNESIUM CITRATE 300 ML BOTTLE PO PRN (19:25)
[2021-10-29] MEDS ORDERED: P-EPHED 60MG/TRIPROLIDI 2.5MG TABLET PO PRN (19:25)
[2021-10-29] MEDS ORDERED: traZODone HCL 50 MG TABLET (FP) PO SCH (19:30)
[2021-10-29] MEDS ORDERED: PATIENT'S OWN MEDICATION (NON-FORMULARY) (Gabapentin [Gabapentin] 600 MG Tablet) PO SCH (19:30)
[2021-10-29] MEDS: THIAMINE HCL 100 MG TABLET (FP) PO SCH (21:07)
[2021-10-29] MEDS: hydrOXYzine PAMOATE 25 MG CAPSULE (FP) PO SCH (21:07)
[2021-10-29] MEDS: MELATONIN 5 MG TABLETS PO SCH (21:07)
[2021-10-29] MEDS: ATORVASTATIN CA 20 MG TABLET (FP) PO SCH (21:07)
[2021-10-29] MEDS: FAMOTIDINE 20 MG TABLET PO SCH (21:07)
[2021-10-29] MEDS: GABAPENTIN 300 MG CAPSULE PO SCH (21:07)
[2021-10-29] MEDS ORDERED: metFORMIN HCL 500 MG TABLET (FP) PO SCH (22:00)
[2021-10-29] MEDS ORDERED: MOXIFLOXACIN OD SCH (22:00)
[2021-10-29] MEDS ORDERED: PATIENT'S OWN MEDICATION (NON-FORMULARY) (Metformin Hcl [Metformin Er Osmotic] 1,000 MG Ta PO SCH (22:00)
[2021-10-29] MEDS ORDERED: DIFLUPREDNATE OD SCH (22:00)
[2021-10-29] MEDS: IBUPROFEN 400 MG TABLET (FP) PO PRN (22:11)
[2021-10-29] MEDS: DULoxetine HCL 60 MG CAPSULE.DR PO SCH (22:19)
[2021-10-30] MEDS: hydrOXYzine PAMOATE 25 MG CAPSULE (FP) PO SCH ×5 (06:59→21:43)
[2021-10-30] MEDS: IBUPROFEN 400 MG TABLET (FP) PO PRN (07:02)
[2021-10-30] MEDS ORDERED: ILEVRO OS SCH (10:00)
[2021-10-30] MEDS: DULoxetine HCL 60 MG CAPSULE.DR PO SCH (11:08)
[2021-10-30] MEDS: TAMSULOSIN HCL 0.4 MG CAP PO SCH (11:08)
[2021-10-30] MEDS: FAMOTIDINE 20 MG TABLET PO SCH ×2 (11:08→21:44)
[2021-10-30] MEDS: amLODIPine BESYLATE 10 MG TABLET (FP) PO SCH (11:08)
[2021-10-30] MEDS: GABAPENTIN 300 MG CAPSULE PO SCH ×4 (11:09→23:20)
[2021-10-30] MEDS: LORATADINE 10 MG TABLET PO SCH (11:09)
[2021-10-30] MEDS: NICOTINE 7 MG/24 HOURS TOPICAL PATCH TD SCH (11:09)
[2021-10-30] MEDS: PRENATAL VITAMINS W/ FOLIC ACID TABLET (FP) PO SCH (11:10)
[2021-10-30] MEDS: METHOCARBAMOL 500 MG TABLET PO SCH ×3 (11:10→23:20)
[2021-10-30] MEDS ORDERED: AMMONIUM LACTATE 12% LOTION 225 GM BOTTLE TP PRN (13:23)
[2021-10-30] MEDS: TOLNAFTATE 1% CREAM 15 GM TUBE TP SCH ×2 (14:55→21:46)
[2021-10-30] MEDS: ARTIFICIAL TEARS (POLYVINYL ALCOHOL) OPTH DROPS OU PRN (14:55)
[2021-10-30] MEDS: ATORVASTATIN CA 20 MG TABLET (FP) PO SCH (21:43)
[2021-10-30] MEDS: THIAMINE HCL 100 MG TABLET (FP) PO SCH (21:43)
[2021-10-30] MEDS: MELATONIN 5 MG TABLETS PO SCH (21:44)
[2021-10-30] MEDS: traZODone HCL 100 MG TABLET (FP) PO SCH (21:46)
[2021-10-30] MEDS: DULoxetine HCL 30 MG CAPSULE.DR PO SCH (22:10)
[2021-10-31] MEDS: hydrOXYzine PAMOATE 25 MG CAPSULE (FP) PO SCH ×5 (06:33→21:14)
[2021-10-31] MEDS: METHOCARBAMOL 500 MG TABLET PO SCH ×4 (06:33→23:55)
[2021-10-31] MEDS: GABAPENTIN 300 MG CAPSULE PO SCH ×4 (06:33→23:55)
[2021-10-31] MEDS: LORATADINE 10 MG TABLET PO SCH (10:47)
[2021-10-31] MEDS: FAMOTIDINE 20 MG TABLET PO SCH ×2 (10:47→21:12)
[2021-10-31] MEDS: amLODIPine BESYLATE 10 MG TABLET (FP) PO SCH (10:47)
[2021-10-31] MEDS: PRENATAL VITAMINS W/ FOLIC ACID TABLET (FP) PO SCH (10:47)
[2021-10-31] MEDS: ARTIFICIAL TEARS (POLYVINYL ALCOHOL) OPTH DROPS OU PRN (10:47)
[2021-10-31] MEDS: TAMSULOSIN HCL 0.4 MG CAP PO SCH (10:47)
[2021-10-31] MEDS: DULoxetine HCL 30 MG CAPSULE.DR PO SCH ×2 (10:47→21:11)
[2021-10-31] MEDS: TOLNAFTATE 1% CREAM 15 GM TUBE TP SCH ×2 (10:48→21:13)
[2021-10-31] MEDS: NICOTINE 7 MG/24 HOURS TOPICAL PATCH TD SCH (10:48)
[2021-10-31] MEDS: DAPAGLIFLOZIN PROPANEDIOL 5 MG TABLET PO SCH (10:50)
[2021-10-31] MEDS: ATORVASTATIN CA 20 MG TABLET (FP) PO SCH (21:12)
[2021-10-31] MEDS: MELATONIN 5 MG TABLETS PO SCH (21:12)
[2021-10-31] MEDS: THIAMINE HCL 100 MG TABLET (FP) PO SCH (21:12)
[2021-10-31] MEDS: traZODone HCL 100 MG TABLET (FP) PO SCH (21:12)
[2021-11-01] MEDS: hydrOXYzine PAMOATE 25 MG CAPSULE (FP) PO SCH ×5 (06:33→21:25)
[2021-11-01] MEDS: GABAPENTIN 300 MG CAPSULE PO SCH ×3 (06:33→17:00)
[2021-11-01] MEDS: METHOCARBAMOL 500 MG TABLET PO SCH ×3 (06:33→17:00)
[2021-11-01] MEDS: LORATADINE 10 MG TABLET PO SCH (10:10)
[2021-11-01] MEDS: amLODIPine BESYLATE 10 MG TABLET (FP) PO SCH (10:10)
[2021-11-01] MEDS: NICOTINE 7 MG/24 HOURS TOPICAL PATCH TD SCH (10:11)
[2021-11-01] MEDS: TAMSULOSIN HCL 0.4 MG CAP PO SCH (10:11)
[2021-11-01] MEDS: PRENATAL VITAMINS W/ FOLIC ACID TABLET (FP) PO SCH (10:11)
[2021-11-01] MEDS: FAMOTIDINE 20 MG TABLET PO SCH ×2 (10:11→21:25)
[2021-11-01] MEDS: DAPAGLIFLOZIN PROPANEDIOL 5 MG TABLET PO SCH (10:12)
[2021-11-01] MEDS: DULoxetine HCL 30 MG CAPSULE.DR PO SCH (10:13)
[2021-11-01] MEDS: TOLNAFTATE 1% CREAM 15 GM TUBE TP SCH ×2 (10:13→21:28)
[2021-11-01] MEDS: DULoxetine HCL 60 MG CAPSULE.DR PO SCH (21:25)
[2021-11-01] MEDS: ATORVASTATIN CA 20 MG TABLET (FP) PO SCH (21:25)
[2021-11-01] MEDS: THIAMINE HCL 100 MG TABLET (FP) PO SCH (21:26)
[2021-11-01] MEDS: traZODone HCL 100 MG TABLET (FP) PO SCH (21:26)
[2021-11-01] MEDS: MELATONIN 5 MG TABLETS PO SCH (21:26)
[2021-11-02] MEDS: METHOCARBAMOL 500 MG TABLET PO SCH ×4 (00:52→17:05)
[2021-11-02] MEDS: GABAPENTIN 300 MG CAPSULE PO SCH ×4 (00:52→17:05)
[2021-11-02] MEDS: hydrOXYzine PAMOATE 25 MG CAPSULE (FP) PO SCH ×5 (06:21→21:13)
[2021-11-02] MEDS: DULoxetine HCL 60 MG CAPSULE.DR PO SCH ×2 (10:43→21:13)
[2021-11-02] MEDS: LORATADINE 10 MG TABLET PO SCH (10:43)
[2021-11-02] MEDS: DAPAGLIFLOZIN PROPANEDIOL 5 MG TABLET PO SCH (10:44)
[2021-11-02] MEDS: PRENATAL VITAMINS W/ FOLIC ACID TABLET (FP) PO SCH (10:45)
[2021-11-02] MEDS: FAMOTIDINE 20 MG TABLET PO SCH ×2 (10:45→21:13)
[2021-11-02] MEDS: NICOTINE 7 MG/24 HOURS TOPICAL PATCH TD SCH (10:45)
[2021-11-02] MEDS: TAMSULOSIN HCL 0.4 MG CAP PO SCH (10:45)
[2021-11-02] MEDS: amLODIPine BESYLATE 10 MG TABLET (FP) PO SCH (10:45)
[2021-11-02] MEDS: TOLNAFTATE 1% CREAM 15 GM TUBE TP SCH ×2 (10:46→21:16)
[2021-11-02] MEDS: MELATONIN 5 MG TABLETS PO SCH (21:14)
[2021-11-02] MEDS: THIAMINE HCL 100 MG TABLET (FP) PO SCH (21:14)
[2021-11-02] MEDS: ATORVASTATIN CA 20 MG TABLET (FP) PO SCH (21:14)
[2021-11-02] MEDS: traZODone HCL 100 MG TABLET (FP) PO SCH (21:14)
[2021-11-03] MEDS: METHOCARBAMOL 500 MG TABLET PO SCH ×3 (01:05→13:53)
[2021-11-03] MEDS: GABAPENTIN 300 MG CAPSULE PO SCH ×3 (01:05→13:52)
[2021-11-03] MEDS: hydrOXYzine PAMOATE 25 MG CAPSULE (FP) PO SCH ×3 (05:52→13:52)
[2021-11-03 07:15] VITALS: TEMP 97.5
[2021-11-03] MEDS ORDERED: PATIENT'S OWN MEDICATION (NON-FORMULARY) (Semaglutide [Ozempic] 1 MG/0.75 ML Pen.Injctr) SQ SCH (10:00)
[2021-11-03] MEDS: PRENATAL VITAMINS W/ FOLIC ACID TABLET (FP) PO SCH (10:07)
[2021-11-03] MEDS: DULoxetine HCL 60 MG CAPSULE.DR PO SCH (10:07)
[2021-11-03] MEDS: TAMSULOSIN HCL 0.4 MG CAP PO SCH (10:07)
[2021-11-03] MEDS: amLODIPine BESYLATE 10 MG TABLET (FP) PO SCH (10:07)
[2021-11-03] MEDS: LORATADINE 10 MG TABLET PO SCH (10:07)
[2021-11-03] MEDS: FAMOTIDINE 20 MG TABLET PO SCH (10:07)
[2021-11-03] MEDS: TOLNAFTATE 1% CREAM 15 GM TUBE TP SCH (10:10)
[2021-11-03] MEDS: DAPAGLIFLOZIN PROPANEDIOL 5 MG TABLET PO SCH (11:16)
[2021-11-03] MEDS: NICOTINE 7 MG/24 HOURS TOPICAL PATCH TD SCH (11:16)
[2021-11-03 13:02] VITALS: BP 127/72; PULSE 99
[2021-11-04 14:11] LABS: SARS-CoV-2 NAA Not Detected (Not Detected)
== END 2021-11-03 15:28 | disposition home or self-care (01) | DRG 895 ==
LOC: YASAS 18:04 → Y3W 18:05
PROVIDERS: ADMIT Allergy & Immunology; ATTEND Allergy & Immunology
PROC: HZ42ZZZ Group Counseling for Substance Abuse Treatment, Cognitive-Behavioral (ICD-10-PCS; principal; 2021-10-29)
DX: F10.20 Alcohol dependence, uncomplicated (principal); I10 Essential (primary) hypertension; E11.9 Type 2 diabetes mellitus without complications; E78.5 Hyperlipidemia, unspecified; N40.0 Benign prostatic hyperplasia without lower urinary tract symptoms; J45.909 Unspecified asthma, uncomplicated; K21.9 Gastro-esophageal reflux disease without esophagitis; Z79.84 Long term (current) use of oral hypoglycemic drugs; Z96.652 Presence of left artificial knee joint
CPT/HCPCS: 82962; C9803-CS; U0003; U0005

== ENCOUNTER 2022-04-26 09:42 | Inpatient (IN) | payer OTHER ==
[2022-04-26] MEDS ORDERED: LORazepam 1 MG TABLET PO PRN (10:16)
[2022-04-26] MEDS ORDERED: MAGNESIUM HYDROX 2400MG/30ML ORAL SUSPENSION 30 ML CUP PO PRN (10:16)
[2022-04-26] MEDS ORDERED: LOPERAMIDE HCL 2 MG CAPSULE PO PRN (10:16)
[2022-04-26] MEDS ORDERED: MAG HYDROX/AL HYDROX/SIMETH 30 ML UNIT-DOSE CUP PO PRN (10:16)
[2022-04-26] MEDS ORDERED: NICOTINE 10 MG CARTRIDGE (INHALER) IH PRN (10:16)
[2022-04-26] MEDS ORDERED: BISMUTH SUBSALICYLATE 524 MG/30 ML PO PRN (10:16)
[2022-04-26] MEDS ORDERED: ONDANSETRON *ODT* 4 MG TABLET SL PRN (10:16)
[2022-04-26] MEDS ORDERED: BENZOCAINE/MENTHOL (CHLORASEPTIC ) LOZENGE MM PRN (10:16)
[2022-04-26] MEDS ORDERED: ACETAMINOPHEN 325 MG TABLET (FP) PO PRN ×2 (10:16)
[2022-04-26] MEDS ORDERED: IBUPROFEN 600 MG TABLET (FP) PO PRN (10:16)
[2022-04-26] MEDS ORDERED: NALOXONE HCL (KLOXXADO) 8 MG SPRAY NS PRN (10:16)
[2022-04-26] MEDS ORDERED: DICYCLOMINE HCL 10 MG CAPSULE PO PRN (10:16)
[2022-04-26] MEDS ORDERED: MAGNESIUM CITRATE 300 ML BOTTLE PO PRN (10:16)
[2022-04-26] MEDS ORDERED: IBUPROFEN 400 MG TABLET (FP) PO PRN (10:16)
[2022-04-26] MEDS ORDERED: NICOTINE POLACRILEX 2 MG GUM BUC PRN (10:16)
[2022-04-26 10:21] VITALS: BMI 34.2
[2022-04-26] MEDS: LORazepam 2 MG TABLET PO SCH ×3 (10:34→22:34)
[2022-04-26] MEDS ORDERED: cloNIDine HCL 0.1 MG TABLET ONE (12:06)
[2022-04-26] MEDS ORDERED: cloNIDine HCL 0.1 MG TABLET PO ONE (12:15)
[2022-04-26] MEDS: PRENATAL VITAMINS W/ FOLIC ACID TABLET (FP) PO SCH (12:52)
[2022-04-26] MEDS: METHOCARBAMOL 500 MG TABLET PO PRN (12:52)
[2022-04-26] MEDS: hydrOXYzine PAMOATE 25 MG CAPSULE (FP) PO PRN (12:52)
[2022-04-26] MEDS ORDERED: TRIMETHOBENZAMIDE HCL 200MG/2ML INJ IM ONE (13:00)
[2022-04-26 16:23] LABS: ALBUMIN 4.6 g/dl (3.4-5.0)
[2022-04-26 16:23] LABS: HEMATOCRIT 50.1 % (35.4-49); HEMOGLOBIN 16.3 GM/dL (11.7-16.9); MCH 26.7 pg (25.7-33.7); MCHC 32.6 g/dl (32.0-35.9); MEAN PLT VOLUME 8.7 fl (7.5-11.1); PLATELET COUNT 403 10^3/uL (134-434); RBC 6.11 M/mm3 (4.00-5.60); RDW 15.9 % (11.9-15.9); WHITE BLOOD COUNT 26.7 K/mm3 (4.0-10.0)
[2022-04-26 16:24] LABS: BLOOD UREA NITROGEN 29.2 mg/dL (7-18)
[2022-04-26 16:27] LABS: CREATININE 1.7 mg/dL (0.55-1.3)
[2022-04-26 16:28] LABS: BILIRUBIN,TOTAL 0.6 mg/dL (0.2-1); TOT PROT 8.4 g/dl (6.4-8.2)
[2022-04-26] MEDS ORDERED: INSULIN SLIDING SCALE (NOVOLOG) 1 VIAL SQ SCH (16:30)
[2022-04-26] MEDS ORDERED: MELATONIN 5 MG TABLETS PO SCH (22:00)
[2022-04-26] MEDS: THIAMINE HCL 100 MG TABLET (FP) PO SCH (22:33)
[2022-04-26] MEDS: ATORVASTATIN CA 20 MG TABLET (FP) PO SCH (22:33)
[2022-04-26] MEDS: traZODone HCL 100 MG TABLET (FP) PO SCH (22:33)
[2022-04-26] MEDS: FAMOTIDINE 20 MG TABLET PO SCH (22:34)
[2022-04-27] MEDS: LORazepam 2 MG TABLET PO SCH ×4 (05:48→22:44)
[2022-04-27] MEDS: INSULIN SLIDING SCALE (NOVOLOG) 1 VIAL SQ SCH ×3 (06:37→16:52)
[2022-04-27] MEDS ORDERED: INSULIN (NOVOLOG) ASPART 100 UNITS/ML 10ML VIAL ONE ×2 (07:48→11:25)
[2022-04-27] MEDS ORDERED: amLODIPine BESYLATE 10 MG TABLET (FP) PO SCH (10:00)
[2022-04-27] MEDS ORDERED: LORATADINE 10 MG TABLET PO SCH (10:00)
[2022-04-27] MEDS ORDERED: TAMSULOSIN HCL 0.4 MG CAP PO SCH (10:00)
[2022-04-27] MEDS: PRENATAL VITAMINS W/ FOLIC ACID TABLET (FP) PO SCH (10:35)
[2022-04-27] MEDS: METHOCARBAMOL 500 MG TABLET PO PRN (10:35)
[2022-04-27] MEDS: FAMOTIDINE 20 MG TABLET PO SCH ×2 (10:35→22:45)
[2022-04-27] MEDS: hydrOXYzine PAMOATE 25 MG CAPSULE (FP) PO PRN (10:35)
[2022-04-27 12:44] VITALS: BP 128/94; PULSE 98; RESP 18; TEMP 97.3
[2022-04-27] MEDS: ATORVASTATIN CA 20 MG TABLET (FP) PO SCH (22:45)
[2022-04-27] MEDS: THIAMINE HCL 100 MG TABLET (FP) PO SCH (22:45)
[2022-04-27] MEDS: traZODone HCL 100 MG TABLET (FP) PO SCH (22:45)
[2022-04-28] MEDS ORDERED: LORazepam 1 MG TABLET PO SCH (05:00)
[2022-04-29] MEDS ORDERED: LORazepam 0.5 MG TABLET PO PRN
[2022-04-29] MEDS ORDERED: LORazepam 0.5 MG TABLET PO SCH (05:00)
[2022-05-02] MEDS ORDERED: PATIENT'S OWN MEDICATION (NON-FORMULARY) (Semaglutide [Ozempic] 1 MG/0.75 ML Pen.Injctr) SQ SCH (10:00)
== END 2022-04-28 00:57 | disposition short-term general hospital (02) | DRG 897 ==
LOC: YASAS 09:42 → Y6N 11:44
PROVIDERS: ADMIT Allergy & Immunology; ATTEND Surgery
PROC: HZ2ZZZZ Detoxification Services for Substance Abuse Treatment (ICD-10-PCS; principal; 2022-04-26)
DX: F10.230 Alcohol dependence with withdrawal, uncomplicated (principal); F10.280 Alcohol dependence with alcohol-induced anxiety disorder; F10.282 Alcohol dependence with alcohol-induced sleep disorder; F32.A Depression, unspecified; D72.829 Elevated white blood cell count, unspecified; J45.20 Mild intermittent asthma, uncomplicated; E78.00 Pure hypercholesterolemia, unspecified; I10 Essential (primary) hypertension; K21.9 Gastro-esophageal reflux disease without esophagitis; E11.9 Type 2 diabetes mellitus without complications; Z79.84 Long term (current) use of oral hypoglycemic drugs; E66.9 Obesity, unspecified; Z68.34 Body mass index [BMI] 34.0-34.9, adult; Z87.891 Personal history of nicotine dependence
CPT/HCPCS: 36415; 80053; 82962; 85027; 86780; 87811; C9803-CS; Q0162; U0003; U0005

== ENCOUNTER 2022-04-27 14:42 | Observation (INO) | payer OTHER ==
[2022-04-27] MEDS ORDERED: LORazepam 2 MG/ML SDV VIAL IVPUSH ONE (17:44)
[2022-04-27 17:55] LABS: BASO % 0.6 % (0-2.0); HEMATOCRIT 42.1 % (35.4-49); HEMOGLOBIN 14.2 GM/dL (11.7-16.9); LYMPH % 22.9 % (8-40); MCH 27.2 pg (25.7-33.7); MCHC 33.9 g/dl (32.0-35.9); MEAN CELL VOLUME 80.3 fl (80-96); MEAN PLT VOLUME 8.3 fl (7.5-11.1); MONO % 7.9 % (3.8-10.2); NEUT % 67.6 % (42.8-82.8); PLATELET COUNT 232 10^3/uL (134-434); RBC 5.24 M/mm3 (4.00-5.60); RDW 15.3 % (11.9-15.9)
[2022-04-27 18:07] LABS: LACTIC ACID 3.2 mmol/L (0.4-2.0)
[2022-04-27 18:13] LABS: CALCIUM 9.8 mg/dL (8.5-10.1)
[2022-04-27 18:14] LABS: BLOOD UREA NITROGEN 22.6 mg/dL (7-18)
[2022-04-27 18:17] LABS: CREATININE 1.3 mg/dL (0.55-1.3)
[2022-04-27 18:19] LABS: BILIRUBIN,TOTAL 0.3 mg/dL (0.2-1); TOT PROT 6.6 g/dl (6.4-8.2)
[2022-04-27 18:22] LABS: ALBUMIN 3.5 g/dl (3.4-5.0)
[2022-04-27] MEDS ORDERED: SODIUM CHLORIDE 0.9% 1000 ML INFUS.BAG IV ONE (18:53)
[2022-04-27 21:38] LABS: EPI CELLS 3 /uL (0-25.1); HYALINE CASTS 0 /uL (0-3.1); URINE APPEARANCE CLEAR; URINE BACTERIA 8 /uL (0-1359); URINE BILIRUBIN NEGATIVE (NEGATIVE); URINE COLOR YELLOW; URINE GLUCOSE (UA) 3+ (NEGATIVE); URINE KETONE TRACE (NEGATIVE); URINE LEUK ESTERASE NEGATIVE (NEGATIVE); URINE NITRITE NEGATIVE (NEGATIVE); URINE PROTEIN 1+ (NEGATIVE); URINE RBC 12 /uL (0-23.9); URINE UROBILINOGEN 0.2 mg/dL (0.2-1.0); URINE WBC 2 /uL (0-25.8)
[2022-04-27] MEDS ORDERED: FAMOTIDINE 10 MG TABLET PO ONE (23:10)
[2022-04-27] MEDS ORDERED: ACETAMINOPHEN 500 MG TABLET (FP) PO ONE (23:10)
[2022-04-28] MEDS ORDERED: LORazepam 1 MG TABLET PO PRN
[2022-04-28] MEDS ORDERED: SODIUM CHLORIDE 1,000 ML IV SCH ×3 (00:30→13:00)
[2022-04-28] MEDS ORDERED: FOLIC ACID 1 MG TABLET (FP) PO ONE (00:34)
[2022-04-28] MEDS ORDERED: FOLIC ACID 1 MG TABLET (FP) ONE (05:06)
[2022-04-28] MEDS ORDERED: LORazepam 1 MG TABLET ONE ×2 (05:07→11:41)
[2022-04-28] MEDS: LORazepam 1 MG TABLET PO SCH ×4 (05:12→22:07)
[2022-04-28 07:42] LABS: HEMATOCRIT 42.4 % (35.4-49); MCH 26.4 pg (25.7-33.7); MCHC 33.1 g/dl (32.0-35.9); MEAN CELL VOLUME 79.9 fl (80-96); MEAN PLT VOLUME 8.5 fl (7.5-11.1); PLATELET COUNT 219 10^3/uL (134-434); RBC 5.32 M/mm3 (4.00-5.60); RDW 15.3 % (11.9-15.9); WHITE BLOOD COUNT 6.6 K/mm3 (4.0-10.0)
[2022-04-28 07:46] LABS: INR 0.97 (0.83-1.09); PROTHROMBIN TIME (PATIENT) 11.2 SEC (9.7-13.0)
[2022-04-28] MEDS ORDERED: TAMSULOSIN HCL 0.4 MG CAP ONE (07:48)
[2022-04-28] MEDS ORDERED: DULoxetine HCL 30 MG CAPSULE.DR PO ONE (07:48)
[2022-04-28] MEDS ORDERED: ENOXAPARIN NA (PORCINE) 40 MG/0.4 ML DISP.SYRIN SQ ONE (07:48)
[2022-04-28] MEDS ORDERED: LISINOPRIL 10 MG TABLET ONE (07:48)
[2022-04-28 08:01] LABS: MAGNESIUM 1.7 mg/dL (1.8-2.4)
[2022-04-28] MEDS: INSULIN SLIDING SCALE (NOVOLOG) 1 VIAL SQ SCH ×4 (08:03→21:48)
[2022-04-28 08:05] LABS: PHOSPHOROUS 1.6 mg/dL (2.5-4.9)
[2022-04-28] MEDS ORDERED: MAGNESIUM SULF 50% (8.12 MEQ/2 ML-1 GM VIAL) IVPB ONE (09:00)
[2022-04-28] MEDS ORDERED: NAPH,MB-DB/K PH,MBDB POWDER PACKET PO ONE (09:00)
[2022-04-28] MEDS: DULoxetine HCL 30 MG CAPSULE.DR PO SCH ×2 (09:02→21:43)
[2022-04-28] MEDS: TAMSULOSIN HCL 0.4 MG CAP PO SCH (09:02)
[2022-04-28] MEDS: ENOXAPARIN NA (PORCINE) 40 MG/0.4 ML DISP.SYRIN SQ SCH (09:03)
[2022-04-28] MEDS: LISINOPRIL 10 MG TABLET PO SCH (09:03)
[2022-04-28] MEDS ORDERED: MAGNESIUM SULFATE IN WATER 2 GM/50 ML IVPB IVPB ONE (09:05)
[2022-04-28] MEDS ORDERED: SODIUM PHOSPHATE - 45 MM in SODIUM CHLORIDE 500 ML IVPB ONE (10:00)
[2022-04-28] MEDS ORDERED: traZODone HCL 100 MG TABLET (FP) PO SCH ×2 (10:00→22:00)
[2022-04-28] MEDS: THIAMINE HCL 100 MG TABLET (FP) PO SCH ×2 (10:20→21:44)
[2022-04-28] MEDS: METHOCARBAMOL 500 MG TABLET PO SCH ×2 (17:21→21:45)
[2022-04-28 18:10] VITALS: BMI 34.9
[2022-04-28] MEDS ORDERED: traZODone HCL 50 MG TABLET (FP) ONE ×2 (21:29→22:00)
[2022-04-28] MEDS ORDERED: INSULIN (NOVOLOG) ASPART 100 UNITS/ML 10ML VIAL ONE (21:42)
[2022-04-28] MEDS: GABAPENTIN 400 MG CAPSULE PO SCH (21:44)
[2022-04-28] MEDS: PANTOPRAZOLE 40 MG TABLET PO SCH (21:46)
[2022-04-28] MEDS: NAPROXEN 500 MG TABLET PO SCH (21:47)
[2022-04-28] MEDS ORDERED: traZODone HCL 50 MG TABLET (FP) PO SCH ×2 (21:48→22:07)
[2022-04-28] MEDS ORDERED: traZODone HCL 150 MG TABLET PO SCH (22:00)
[2022-04-28] MEDS ORDERED: DULoxetine HCL 60 MG CAPSULE.DR PO SCH (22:00)
[2022-04-28] MEDS: traZODone HCL 50 MG TABLET (FP) PO SCH (22:12)
[2022-04-29] MEDS: GABAPENTIN 400 MG CAPSULE PO SCH ×3 (05:52→21:50)
[2022-04-29] MEDS: LORazepam 0.5 MG TABLET PO SCH ×4 (05:53→22:02)
[2022-04-29] MEDS: INSULIN SLIDING SCALE (NOVOLOG) 1 VIAL SQ SCH ×4 (06:08→21:51)
[2022-04-29] MEDS: METHOCARBAMOL 500 MG TABLET PO SCH ×4 (09:29→21:50)
[2022-04-29] MEDS: ENOXAPARIN NA (PORCINE) 40 MG/0.4 ML DISP.SYRIN SQ SCH (09:30)
[2022-04-29] MEDS: DULoxetine HCL 30 MG CAPSULE.DR PO SCH ×2 (09:31→21:49)
[2022-04-29] MEDS: TAMSULOSIN HCL 0.4 MG CAP PO SCH (09:32)
[2022-04-29] MEDS: NAPROXEN 500 MG TABLET PO SCH (09:32)
[2022-04-29] MEDS: LISINOPRIL 10 MG TABLET PO SCH (09:32)
[2022-04-29] MEDS: THIAMINE HCL 100 MG TABLET (FP) PO SCH ×2 (09:33→21:50)
[2022-04-29] MEDS: PANTOPRAZOLE 40 MG TABLET PO SCH ×2 (09:33→21:51)
[2022-04-29 10:06] LABS: HEMATOCRIT 35.1 % (35.4-49); HEMOGLOBIN 12.2 GM/dL (11.7-16.9); MCH 27.8 pg (25.7-33.7); MCHC 34.8 g/dl (32.0-35.9); MEAN PLT VOLUME 8.1 fl (7.5-11.1); PLATELET COUNT 204 10^3/uL (134-434); RBC 4.39 M/mm3 (4.00-5.60); RDW 15.2 % (11.9-15.9)
[2022-04-29 10:32] LABS: CALCIUM 8.4 mg/dL (8.5-10.1)
[2022-04-29 10:34] LABS: BLOOD UREA NITROGEN 13.4 mg/dL (7-18)
[2022-04-29 10:37] LABS: CREATININE 0.9 mg/dL (0.55-1.3); PHOSPHOROUS 3.6 mg/dL (2.5-4.9); TOT PROT 5.5 g/dl (6.4-8.2)
[2022-04-29 10:38] LABS: BILIRUBIN,TOTAL 0.4 mg/dL (0.2-1)
[2022-04-29] MEDS: traZODone HCL 50 MG TABLET (FP) PO SCH (21:49)
[2022-04-30] MEDS ORDERED: LORazepam 0.5 MG TABLET PO ONE (05:00)
[2022-04-30] MEDS: GABAPENTIN 400 MG CAPSULE PO SCH ×3 (05:46→21:16)
[2022-04-30] MEDS: INSULIN SLIDING SCALE (NOVOLOG) 1 VIAL SQ SCH ×4 (07:17→21:23)
[2022-04-30] MEDS: LISINOPRIL 10 MG TABLET PO SCH (09:41)
[2022-04-30] MEDS: METHOCARBAMOL 500 MG TABLET PO SCH ×4 (09:42→21:17)
[2022-04-30] MEDS: THIAMINE HCL 100 MG TABLET (FP) PO SCH ×2 (09:42→21:17)
[2022-04-30] MEDS: DULoxetine HCL 30 MG CAPSULE.DR PO SCH ×2 (09:42→21:16)
[2022-04-30] MEDS: PANTOPRAZOLE 40 MG TABLET PO SCH ×2 (09:43→21:16)
[2022-04-30] MEDS: TAMSULOSIN HCL 0.4 MG CAP PO SCH (09:43)
[2022-04-30] MEDS: ENOXAPARIN NA (PORCINE) 40 MG/0.4 ML DISP.SYRIN SQ SCH (09:44)
[2022-04-30 09:56] LABS: HEMATOCRIT 35.8 % (35.4-49); MCHC 33.4 g/dl (32.0-35.9); MEAN CELL VOLUME 80.7 fl (80-96); MEAN PLT VOLUME 8.3 fl (7.5-11.1); PLATELET COUNT 231 10^3/uL (134-434); RBC 4.44 M/mm3 (4.00-5.60); RDW 15.7 % (11.9-15.9); WHITE BLOOD COUNT 5.1 K/mm3 (4.0-10.0)
[2022-04-30 10:17] LABS: BLOOD UREA NITROGEN 15.1 mg/dL (7-18); CALCIUM 8.6 mg/dL (8.5-10.1); MAGNESIUM 1.7 mg/dL (1.8-2.4)
[2022-04-30 10:20] LABS: PHOSPHOROUS 2.8 mg/dL (2.5-4.9)
[2022-04-30 10:21] LABS: CREATININE 1.1 mg/dL (0.55-1.3)
[2022-04-30] MEDS: traZODone HCL 50 MG TABLET (FP) PO SCH (21:15)
[2022-04-30 22:09] VITALS: RESP 20
[2022-05-01] MEDS ORDERED: LORazepam 0.5 MG TABLET PO PRN
[2022-05-01] MEDS: GABAPENTIN 400 MG CAPSULE PO SCH ×3 (06:28→21:17)
[2022-05-01] MEDS: INSULIN SLIDING SCALE (NOVOLOG) 1 VIAL SQ SCH ×4 (06:28→21:51)
[2022-05-01] MEDS ORDERED: MAG HYDROX/AL HYDROX/SIMETH 30 ML UNIT-DOSE CUP PO ONE (08:15)
[2022-05-01] MEDS: DULoxetine HCL 30 MG CAPSULE.DR PO SCH ×2 (09:11→21:18)
[2022-05-01] MEDS: THIAMINE HCL 100 MG TABLET (FP) PO SCH ×2 (09:11→21:18)
[2022-05-01] MEDS: ENOXAPARIN NA (PORCINE) 40 MG/0.4 ML DISP.SYRIN SQ SCH (09:11)
[2022-05-01] MEDS: TAMSULOSIN HCL 0.4 MG CAP PO SCH (09:11)
[2022-05-01] MEDS: PANTOPRAZOLE 40 MG TABLET PO SCH ×2 (09:11→21:18)
[2022-05-01] MEDS: METHOCARBAMOL 500 MG TABLET PO SCH ×4 (09:11→21:18)
[2022-05-01] MEDS: LISINOPRIL 10 MG TABLET PO SCH (09:11)
[2022-05-01] MEDS ORDERED: MAGNESIUM SULF 50% (8.12 MEQ/2 ML-1 GM VIAL) IVPB ONE (11:55)
[2022-05-01] MEDS ORDERED: ACETAMINOPHEN 1000 MG/100 ML BAG IVPB ONE (12:28)
[2022-05-01] MEDS ORDERED: KETOROLAC TROMETHAMINE 15 MG/ML VIAL IVPUSH ONE (12:42)
[2022-05-01] MEDS: traZODone HCL 50 MG TABLET (FP) PO SCH (21:17)
[2022-05-02] MEDS ORDERED: MAG HYDROX/AL HYDROX/SIMETH 30 ML UNIT-DOSE CUP PO ONE (01:32)
[2022-05-02] MEDS ORDERED: MELATONIN 5 MG TABLETS PO ONE (01:51)
[2022-05-02] MEDS: GABAPENTIN 400 MG CAPSULE PO SCH ×2 (06:23→13:11)
[2022-05-02] MEDS: INSULIN SLIDING SCALE (NOVOLOG) 1 VIAL SQ SCH ×2 (06:25→11:28)
[2022-05-02] MEDS ORDERED: INSULIN (NOVOLOG) ASPART 100 UNITS/ML 10ML VIAL ONE (06:26)
[2022-05-02] MEDS ORDERED: ACETAMINOPHEN 1000 MG/100 ML BAG IVPB ONE (09:07)
[2022-05-02 09:24] LABS: HEMATOCRIT 36.4 % (35.4-49); MCH 27.3 pg (25.7-33.7); MCHC 32.9 g/dl (32.0-35.9); MEAN PLT VOLUME 7.8 fl (7.5-11.1); PLATELET COUNT 213 10^3/uL (134-434); RBC 4.38 M/mm3 (4.00-5.60); WHITE BLOOD COUNT 5.8 K/mm3 (4.0-10.0)
[2022-05-02 09:59] LABS: BLOOD UREA NITROGEN 21.4 mg/dL (7-18); CALCIUM 8.4 mg/dL (8.5-10.1)
[2022-05-02 10:02] LABS: CREATININE 1.1 mg/dL (0.55-1.3)
[2022-05-02] MEDS: TAMSULOSIN HCL 0.4 MG CAP PO SCH (10:31)
[2022-05-02] MEDS: ENOXAPARIN NA (PORCINE) 40 MG/0.4 ML DISP.SYRIN SQ SCH (10:31)
[2022-05-02] MEDS: THIAMINE HCL 100 MG TABLET (FP) PO SCH (10:38)
[2022-05-02] MEDS: LISINOPRIL 10 MG TABLET PO SCH (10:38)
[2022-05-02] MEDS: METHOCARBAMOL 500 MG TABLET PO SCH ×2 (10:38→13:11)
[2022-05-02] MEDS: PANTOPRAZOLE 40 MG TABLET PO SCH (10:38)
[2022-05-02] MEDS: DULoxetine HCL 30 MG CAPSULE.DR PO SCH (10:39)
[2022-05-02 15:03] VITALS: BP 132/82; PULSE 80; TEMP 97.9
[2022-05-02] MEDS ORDERED: MELATONIN 5 MG TABLETS PO SCH (22:00)
== END 2022-05-02 15:18 | disposition other institution (70) ==
LOC: JER 14:42 → JERBED 21:28 → UNDOADMOB 21:28 → INTOOBSV 21:28 → JERBED 23:11 → J7W 04-28 15:52
PROVIDERS: ADMIT Internal Medicine; ATTEND Internal Medicine
PROC: 3E0333Z Introduction of Anti-inflammatory into Peripheral Vein, Percutaneous Approach (ICD-10-PCS; principal; 2022-04-27)
PROC: 3E033NZ Introduction of Analgesics, Hypnotics, Sedatives into Peripheral Vein, Percutaneous Approach (ICD-10-PCS; 2022-04-27)
PROC: 3E033GC Introduction of Other Therapeutic Substance into Peripheral Vein, Percutaneous Approach (ICD-10-PCS; 2022-04-27)
PROC: 3E0337Z Introduction of Electrolytic and Water Balance Substance into Peripheral Vein, Percutaneous Approach (ICD-10-PCS; 2022-04-27)
PROC: 3E013VG Introduction of Insulin into Subcutaneous Tissue, Percutaneous Approach (ICD-10-PCS; 2022-04-27)
PROC: 3E013GC Introduction of Other Therapeutic Substance into Subcutaneous Tissue, Percutaneous Approach (ICD-10-PCS; 2022-04-27)
DX: G91.9 Hydrocephalus, unspecified (principal); N39.498 Other specified urinary incontinence; D72.829 Elevated white blood cell count, unspecified; F10.20 Alcohol dependence, uncomplicated; E83.39 Other disorders of phosphorus metabolism; I10 Essential (primary) hypertension; E11.9 Type 2 diabetes mellitus without complications; K21.9 Gastro-esophageal reflux disease without esophagitis; E66.9 Obesity, unspecified; Z68.34 Body mass index [BMI] 34.0-34.9, adult; J45.909 Unspecified asthma, uncomplicated; E78.5 Hyperlipidemia, unspecified; N40.0 Benign prostatic hyperplasia without lower urinary tract symptoms; M19.90 Unspecified osteoarthritis, unspecified site; R74.8 Abnormal levels of other serum enzymes; E83.42 Hypomagnesemia
CPT/HCPCS: 36415; 70450-TC; 71046-TC-FY; 71250-TC; 74176-TC; 76705-TC; 76856-TC; 80048; 80053; 81003; 82043; 82272; 82550; 82553; 82570; 82962; 83605; 83735; 84100; 84153; 84156; 85025; 85027; 85610; 87040; 87086; 87186; 93005; 93010; 96361; 96372; 96374; 96375; 96376; 97116-GP; 97161-GP; 99285-25; C9803-CS; G0378; U0003; U0005

== ENCOUNTER 2022-05-02 16:40 | Inpatient (IN) | payer OTHER ==
[2022-05-02 18:04] VITALS: BMI 34.9
[2022-05-02] MEDS ORDERED: guaiFENesin 200 MG/10 ML 10 ML UNIT-DOSE CUPS PO PRN (19:48)
[2022-05-02] MEDS ORDERED: P-EPHED 60MG/TRIPROLIDI 2.5MG TABLET PO PRN (19:48)
[2022-05-02] MEDS ORDERED: MAGNESIUM HYDROX 2400MG/30ML ORAL SUSPENSION 30 ML CUP PO PRN (19:48)
[2022-05-02] MEDS ORDERED: MAGNESIUM CITRATE 300 ML BOTTLE PO PRN (19:48)
[2022-05-02] MEDS ORDERED: LOPERAMIDE HCL 2 MG CAPSULE PO PRN (19:48)
[2022-05-02] MEDS ORDERED: ACETAMINOPHEN 325 MG TABLET (FP) PO PRN (19:48)
[2022-05-02] MEDS ORDERED: ACETAMINOPHEN 325 MG TABLET (FP) ONE (20:48)
[2022-05-02] MEDS ORDERED: traZODone HCL 50 MG TABLET (FP) PO ONE (22:00)
[2022-05-02] MEDS: MELATONIN 5 MG TABLETS PO SCH (23:49)
[2022-05-02] MEDS: THIAMINE HCL 100 MG TABLET (FP) PO SCH (23:49)
[2022-05-03] MEDS: hydrOXYzine PAMOATE 25 MG CAPSULE (FP) PO PRN ×3 (02:41→23:54)
[2022-05-03] MEDS: MAG HYDROX/AL HYDROX/SIMETH 30 ML UNIT-DOSE CUP PO PRN ×3 (02:41→23:54)
[2022-05-03] MEDS: IBUPROFEN 400 MG TABLET (FP) PO PRN ×3 (06:34→23:54)
[2022-05-03] MEDS ORDERED: DULoxetine HCL 30 MG CAPSULE.DR PO ONE ×2 (10:26→19:47)
[2022-05-03] MEDS: PRENATAL VITAMINS W/ FOLIC ACID TABLET (FP) PO SCH (11:05)
[2022-05-03] MEDS: DULoxetine HCL 60 MG CAPSULE.DR PO SCH ×2 (11:05→21:18)
[2022-05-03] MEDS: PANTOPRAZOLE 40 MG TABLET PO SCH ×2 (11:06→21:19)
[2022-05-03] MEDS: METHOCARBAMOL 750 MG TAB PO SCH ×4 (11:06→21:21)
[2022-05-03] MEDS ORDERED: ONDANSETRON *ODT* 4 MG TABLET SL PRN (11:31)
[2022-05-03] MEDS: GABAPENTIN 400 MG CAPSULE PO SCH ×2 (14:05→21:18)
[2022-05-03] MEDS ORDERED: INSULIN (NOVOLOG) ASPART 100 UNITS/ML 10ML VIAL ONE (16:31)
[2022-05-03] MEDS: INSULIN SLIDING SCALE (NOVOLOG) 1 VIAL SQ SCH (16:59)
[2022-05-03] MEDS: MELATONIN 5 MG TABLETS PO SCH (21:17)
[2022-05-03] MEDS: THIAMINE HCL 100 MG TABLET (FP) PO SCH (21:18)
[2022-05-03] MEDS: traZODone HCL 100 MG TABLET (FP) PO SCH (21:20)
[2022-05-04] MEDS: GABAPENTIN 400 MG CAPSULE PO SCH ×3 (06:21→21:15)
[2022-05-04] MEDS: INSULIN SLIDING SCALE (NOVOLOG) 1 VIAL SQ SCH ×2 (07:15→16:45)
[2022-05-04] MEDS ORDERED: DULoxetine HCL 30 MG CAPSULE.DR PO ONE ×2 (08:47→20:01)
[2022-05-04] MEDS: PRENATAL VITAMINS W/ FOLIC ACID TABLET (FP) PO SCH (09:55)
[2022-05-04] MEDS: METHOCARBAMOL 750 MG TAB PO SCH ×4 (09:55→21:15)
[2022-05-04] MEDS: DULoxetine HCL 60 MG CAPSULE.DR PO SCH ×2 (09:55→21:14)
[2022-05-04] MEDS: PANTOPRAZOLE 40 MG TABLET PO SCH ×2 (09:55→21:14)
[2022-05-04] MEDS: IBUPROFEN 400 MG TABLET (FP) PO PRN (09:56)
[2022-05-04] MEDS: hydrOXYzine PAMOATE 25 MG CAPSULE (FP) PO PRN (09:56)
[2022-05-04 15:38] LABS: PH,URINE 7.5 (5.0-8.0); URINE APPEARANCE CLEAR; URINE BILIRUBIN NEGATIVE (NEGATIVE); URINE COLOR YELLOW; URINE GLUCOSE (UA) NEGATIVE (NEGATIVE); URINE KETONE NEGATIVE (NEGATIVE); URINE LEUK ESTERASE NEGATIVE (NEGATIVE); URINE NITRITE NEGATIVE (NEGATIVE); URINE PROTEIN NEGATIVE (NEGATIVE); URINE UROBILINOGEN 0.2 mg/dL (0.2-1.0)
[2022-05-04] MEDS ORDERED: INSULIN (NOVOLOG) ASPART 100 UNITS/ML 10ML VIAL ONE (16:24)
[2022-05-04] MEDS: MELATONIN 5 MG TABLETS PO SCH (21:13)
[2022-05-04] MEDS: THIAMINE HCL 100 MG TABLET (FP) PO SCH (21:14)
[2022-05-04] MEDS: traZODone HCL 100 MG TABLET (FP) PO SCH (21:14)
[2022-05-05] MEDS: GABAPENTIN 400 MG CAPSULE PO SCH ×3 (06:13→21:26)
[2022-05-05] MEDS: INSULIN SLIDING SCALE (NOVOLOG) 1 VIAL SQ SCH ×2 (07:06→16:57)
[2022-05-05] MEDS ORDERED: DULoxetine HCL 30 MG CAPSULE.DR PO ONE ×2 (08:56→21:22)
[2022-05-05] MEDS: METHOCARBAMOL 750 MG TAB PO SCH ×4 (09:56→21:25)
[2022-05-05] MEDS: PANTOPRAZOLE 40 MG TABLET PO SCH ×2 (09:56→21:25)
[2022-05-05] MEDS: PRENATAL VITAMINS W/ FOLIC ACID TABLET (FP) PO SCH (09:56)
[2022-05-05] MEDS: DULoxetine HCL 60 MG CAPSULE.DR PO SCH ×2 (09:56→21:25)
[2022-05-05] MEDS: hydrOXYzine PAMOATE 25 MG CAPSULE (FP) PO PRN ×2 (09:59→21:28)
[2022-05-05] MEDS: IBUPROFEN 400 MG TABLET (FP) PO PRN ×2 (09:59→21:26)
[2022-05-05] MEDS: traZODone HCL 100 MG TABLET (FP) PO SCH (21:28)
[2022-05-05] MEDS: MELATONIN 5 MG TABLETS PO SCH (21:30)
[2022-05-05] MEDS: THIAMINE HCL 100 MG TABLET (FP) PO SCH (21:30)
[2022-05-06] MEDS: hydrOXYzine PAMOATE 25 MG CAPSULE (FP) PO PRN ×3 (02:06→16:41)
[2022-05-06] MEDS: GABAPENTIN 400 MG CAPSULE PO SCH ×3 (07:09→21:18)
[2022-05-06] MEDS ORDERED: INSULIN (NOVOLOG) ASPART 100 UNITS/ML 10ML VIAL ONE (07:10)
[2022-05-06] MEDS: INSULIN SLIDING SCALE (NOVOLOG) 1 VIAL SQ SCH ×2 (07:12→16:39)
[2022-05-06] MEDS ORDERED: DULoxetine HCL 30 MG CAPSULE.DR PO ONE (08:24)
[2022-05-06] MEDS: PRENATAL VITAMINS W/ FOLIC ACID TABLET (FP) PO SCH (09:55)
[2022-05-06] MEDS: DULoxetine HCL 60 MG CAPSULE.DR PO SCH ×2 (09:56→21:18)
[2022-05-06] MEDS: METHOCARBAMOL 750 MG TAB PO SCH ×4 (09:56→21:17)
[2022-05-06] MEDS: PANTOPRAZOLE 40 MG TABLET PO SCH ×2 (09:56→21:18)
[2022-05-06] MEDS: IBUPROFEN 400 MG TABLET (FP) PO PRN (09:59)
[2022-05-06] MEDS: MELATONIN 5 MG TABLETS PO SCH (21:16)
[2022-05-06] MEDS: traZODone HCL 100 MG TABLET (FP) PO SCH (21:16)
[2022-05-06] MEDS: THIAMINE HCL 100 MG TABLET (FP) PO SCH (21:17)
[2022-05-07] MEDS ORDERED: INSULIN (NOVOLOG) ASPART 100 UNITS/ML 10ML VIAL ONE (03:53)
[2022-05-07] MEDS: GABAPENTIN 400 MG CAPSULE PO SCH ×3 (06:26→21:21)
[2022-05-07] MEDS: INSULIN SLIDING SCALE (NOVOLOG) 1 VIAL SQ SCH ×2 (07:43→17:20)
[2022-05-07] MEDS ORDERED: DULoxetine HCL 30 MG CAPSULE.DR PO ONE (08:30)
[2022-05-07] MEDS: PRENATAL VITAMINS W/ FOLIC ACID TABLET (FP) PO SCH (09:45)
[2022-05-07] MEDS: PANTOPRAZOLE 40 MG TABLET PO SCH ×2 (09:46→21:22)
[2022-05-07] MEDS: DULoxetine HCL 60 MG CAPSULE.DR PO SCH ×2 (09:46→21:21)
[2022-05-07] MEDS: METHOCARBAMOL 750 MG TAB PO SCH ×4 (09:46→21:22)
[2022-05-07] MEDS: hydrOXYzine PAMOATE 25 MG CAPSULE (FP) PO PRN ×3 (09:46→23:42)
[2022-05-07] MEDS: IBUPROFEN 400 MG TABLET (FP) PO PRN (09:47)
[2022-05-07 14:14] LABS: SYPHILIS W/ RPR CONF NON-REACTIVE (NONREACTIVE)
[2022-05-07] MEDS: MELATONIN 5 MG TABLETS PO SCH (21:21)
[2022-05-07] MEDS: THIAMINE HCL 100 MG TABLET (FP) PO SCH (21:22)
[2022-05-07] MEDS: traZODone HCL 100 MG TABLET (FP) PO SCH (21:22)
[2022-05-08 05:49] VITALS: RESP 18
[2022-05-08] MEDS: GABAPENTIN 400 MG CAPSULE PO SCH ×3 (06:44→21:13)
[2022-05-08] MEDS: INSULIN SLIDING SCALE (NOVOLOG) 1 VIAL SQ SCH ×2 (06:45→17:02)
[2022-05-08] MEDS: PRENATAL VITAMINS W/ FOLIC ACID TABLET (FP) PO SCH (09:48)
[2022-05-08] MEDS: PANTOPRAZOLE 40 MG TABLET PO SCH ×2 (09:49→21:12)
[2022-05-08] MEDS: hydrOXYzine PAMOATE 25 MG CAPSULE (FP) PO PRN ×2 (09:49→21:14)
[2022-05-08] MEDS: METHOCARBAMOL 750 MG TAB PO SCH ×4 (09:49→21:14)
[2022-05-08] MEDS: DULoxetine HCL 60 MG CAPSULE.DR PO SCH ×2 (09:49→21:13)
[2022-05-08] MEDS: IBUPROFEN 400 MG TABLET (FP) PO PRN (09:50)
[2022-05-08] MEDS: MELATONIN 5 MG TABLETS PO SCH (21:12)
[2022-05-08] MEDS: traZODone HCL 100 MG TABLET (FP) PO SCH (21:13)
[2022-05-08] MEDS: THIAMINE HCL 100 MG TABLET (FP) PO SCH (21:14)
[2022-05-08] MEDS ORDERED: DULoxetine HCL 30 MG CAPSULE.DR PO ONE (21:14)
[2022-05-09] MEDS: IBUPROFEN 400 MG TABLET (FP) PO PRN ×2 (00:54→09:53)
[2022-05-09] MEDS: hydrOXYzine PAMOATE 25 MG CAPSULE (FP) PO PRN ×2 (00:55→09:54)
[2022-05-09 06:57] VITALS: BP 125/81; PULSE 95; TEMP 97.5
[2022-05-09] MEDS: INSULIN SLIDING SCALE (NOVOLOG) 1 VIAL SQ SCH (08:01)
[2022-05-09] MEDS ORDERED: INSULIN (NOVOLOG) ASPART 100 UNITS/ML 10ML VIAL ONE ×2 (08:03→08:08)
[2022-05-09] MEDS ORDERED: DULoxetine HCL 30 MG CAPSULE.DR PO ONE (08:20)
[2022-05-09] MEDS: METHOCARBAMOL 750 MG TAB PO SCH ×2 (09:50→14:41)
[2022-05-09] MEDS: PANTOPRAZOLE 40 MG TABLET PO SCH (09:50)
[2022-05-09] MEDS: DULoxetine HCL 60 MG CAPSULE.DR PO SCH (09:51)
[2022-05-09] MEDS: PRENATAL VITAMINS W/ FOLIC ACID TABLET (FP) PO SCH (09:51)
[2022-05-09] MEDS ORDERED: PATIENT'S OWN MEDICATION (NON-FORMULARY) (Semaglutide [Ozempic] 1 MG/0.75 ML Pen.Injctr) SQ SCH (10:00)
[2022-05-09] MEDS ORDERED: METHYL SALICYLATE/MENTHOL OINT 30 GM TUBE TP SCH (11:00)
[2022-05-09] MEDS: GABAPENTIN 400 MG CAPSULE PO SCH (14:41)
== END 2022-05-09 15:23 | disposition home or self-care (01) | DRG 895 ==
LOC: YASAS 16:40 → Y5N 22:49
PROVIDERS: ADMIT Psychiatry & Neurology Pain Medicine; ATTEND Psychiatry & Neurology Pain Medicine
PROC: HZ42ZZZ Group Counseling for Substance Abuse Treatment, Cognitive-Behavioral (ICD-10-PCS; principal; 2022-05-02)
DX: F10.20 Alcohol dependence, uncomplicated (principal); F10.280 Alcohol dependence with alcohol-induced anxiety disorder; F10.282 Alcohol dependence with alcohol-induced sleep disorder; F32.A Depression, unspecified; I10 Essential (primary) hypertension; E78.5 Hyperlipidemia, unspecified; J45.20 Mild intermittent asthma, uncomplicated; K21.9 Gastro-esophageal reflux disease without esophagitis; E11.9 Type 2 diabetes mellitus without complications; Z79.84 Long term (current) use of oral hypoglycemic drugs; N40.0 Benign prostatic hyperplasia without lower urinary tract symptoms; R32 Unspecified urinary incontinence; E66.9 Obesity, unspecified; Z68.35 Body mass index [BMI] 35.0-35.9, adult; Z87.891 Personal history of nicotine dependence; Z99.89 Dependence on other enabling machines and devices
CPT/HCPCS: 36415; 81003; 82962; 86780; 86803; C9803-CS; U0003; U0005

== ENCOUNTER 2022-06-21 09:29 | Inpatient (IN) | payer OTHER ==
[2022-06-21 10:07] VITALS: BMI 35.7
[2022-06-21] MEDS ORDERED: DICYCLOMINE HCL 10 MG CAPSULE PO PRN (12:12)
[2022-06-21] MEDS ORDERED: NALOXONE HCL (KLOXXADO) 8 MG SPRAY NS PRN (12:12)
[2022-06-21] MEDS ORDERED: chlordiazePOXIDE HCL 25 MG CAPSULE PO PRN (12:12)
[2022-06-21] MEDS ORDERED: POLYETHYLENE GLYCOL (HEALTHYLAX) 3350 17 GM PACKET PO PRN (12:12)
[2022-06-21] MEDS ORDERED: MAGNESIUM HYDROX 2400MG/30ML ORAL SUSPENSION 30 ML CUP PO PRN (12:12)
[2022-06-21] MEDS ORDERED: chlordiazePOXIDE HCL 25 MG CAPSULE PO ONE (12:12)
[2022-06-21] MEDS ORDERED: ACETAMINOPHEN 325 MG TABLET (FP) PO PRN ×2 (12:12)
[2022-06-21] MEDS ORDERED: LOPERAMIDE HCL 2 MG CAPSULE PO PRN (12:12)
[2022-06-21] MEDS ORDERED: BISMUTH SUBSALICYLATE 262 MG/15 ML BTL PO PRN (12:12)
[2022-06-21] MEDS ORDERED: ONDANSETRON *ODT* 4 MG TABLET SL PRN (12:12)
[2022-06-21] MEDS ORDERED: IBUPROFEN 400 MG TABLET (FP) PO PRN (12:12)
[2022-06-21] MEDS ORDERED: PATIENT'S OWN MEDICATION (NON-FORMULARY) (Semaglutide [Ozempic] 1 MG/0.75 ML Pen.Injctr) SQ SCH (12:30)
[2022-06-21] MEDS ORDERED: METHOCARBAMOL 750 MG TAB PO SCH (14:00)
[2022-06-21] MEDS: GABAPENTIN 400 MG CAPSULE PO SCH ×2 (14:59→22:02)
[2022-06-21] MEDS: INSULIN SLIDING SCALE (NOVOLOG) 1 VIAL SQ SCH ×2 (17:03→22:05)
[2022-06-21] MEDS: chlordiazePOXIDE HCL 25 MG CAPSULE PO SCH ×2 (17:08→22:02)
[2022-06-21] MEDS ORDERED: METOPROLOL TARTRATE 25 MG TABLET (FP) PO ONE (17:48)
[2022-06-21] MEDS ORDERED: DULoxetine HCL 60 MG CAPSULE.DR PO SCH (22:00)
[2022-06-21] MEDS ORDERED: NAPROXEN 500 MG TABLET PO SCH (22:00)
[2022-06-21] MEDS ORDERED: MELATONIN 5 MG TABLETS PO SCH (22:00)
[2022-06-21] MEDS: THIAMINE HCL 100 MG TABLET (FP) PO SCH (22:02)
[2022-06-21] MEDS: PANTOPRAZOLE 40 MG TABLET PO SCH (22:02)
[2022-06-21] MEDS: DULoxetine HCL 60 MG CAPSULE.DR PO SCH (22:02)
[2022-06-21] MEDS ORDERED: INSULIN (NOVOLOG) ASPART 100 UNITS/ML 10ML VIAL ONE (22:07)
[2022-06-22] MEDS: GABAPENTIN 400 MG CAPSULE PO SCH ×3 (05:36→22:10)
[2022-06-22] MEDS: chlordiazePOXIDE HCL 25 MG CAPSULE PO SCH ×4 (05:37→22:12)
[2022-06-22] MEDS: INSULIN SLIDING SCALE (NOVOLOG) 1 VIAL SQ SCH ×4 (06:44→22:07)
[2022-06-22] MEDS ORDERED: INSULIN (NOVOLOG) ASPART 100 UNITS/ML 10ML VIAL ONE ×4 (07:49→22:09)
[2022-06-22] MEDS: PRENATAL VITAMINS W/ FOLIC ACID TABLET (FP) PO SCH (10:40)
[2022-06-22] MEDS: PANTOPRAZOLE 40 MG TABLET PO SCH ×2 (10:41→22:10)
[2022-06-22] MEDS: TAMSULOSIN HCL 0.4 MG CAP PO SCH (10:41)
[2022-06-22] MEDS: METHOCARBAMOL 500 MG TABLET PO PRN ×2 (10:41→17:16)
[2022-06-22] MEDS: IBUPROFEN 600 MG TABLET (FP) PO PRN (10:42)
[2022-06-22] MEDS: DULoxetine HCL 60 MG CAPSULE.DR PO SCH ×2 (10:43→22:13)
[2022-06-22 11:33] LABS: HEMATOCRIT 41.1 % (35.4-49); HEMOGLOBIN 13.2 GM/dL (11.7-16.9); MCH 25.7 pg (25.7-33.7); MEAN CELL VOLUME 80.1 fl (80-96); MEAN PLT VOLUME 8.2 fl (7.5-11.1); PLATELET COUNT 287 10^3/uL (134-434); RBC 5.13 M/mm3 (4.00-5.60); WHITE BLOOD COUNT 7.9 K/mm3 (4.0-10.0)
[2022-06-22 11:35] LABS: CALCIUM 9.1 mg/dL (8.5-10.1)
[2022-06-22 11:37] LABS: ALBUMIN 3.9 g/dl (3.4-5.0); BLOOD UREA NITROGEN 12.8 mg/dL (7-18)
[2022-06-22 11:40] LABS: CREATININE 1.4 mg/dL (0.55-1.3)
[2022-06-22 11:41] LABS: BILIRUBIN,TOTAL 1.1 mg/dL (0.2-1); TOT PROT 7.2 g/dl (6.4-8.2)
[2022-06-22] MEDS: LACTULOSE 20 GM/30 ML UDC (FOR ORAL USE ONLY) PO SCH ×3 (14:07→22:13)
[2022-06-22] MEDS: traZODone HCL 100 MG TABLET (FP) PO SCH (22:10)
[2022-06-22] MEDS: THIAMINE HCL 100 MG TABLET (FP) PO SCH (22:10)
[2022-06-23] MEDS: MAG HYDROX/AL HYDROX/SIMETH 30 ML UNIT-DOSE CUP PO PRN (01:28)
[2022-06-23] MEDS: chlordiazePOXIDE HCL 25 MG CAPSULE PO SCH ×4 (05:39→22:11)
[2022-06-23] MEDS: GABAPENTIN 400 MG CAPSULE PO SCH ×3 (05:40→22:11)
[2022-06-23] MEDS: INSULIN SLIDING SCALE (NOVOLOG) 1 VIAL SQ SCH ×4 (07:28→22:08)
[2022-06-23] MEDS ORDERED: INSULIN (NOVOLOG) ASPART 100 UNITS/ML 10ML VIAL ONE ×4 (08:02→22:09)
[2022-06-23] MEDS: PANTOPRAZOLE 40 MG TABLET PO SCH ×2 (10:35→22:11)
[2022-06-23] MEDS: PRENATAL VITAMINS W/ FOLIC ACID TABLET (FP) PO SCH (10:35)
[2022-06-23] MEDS: TAMSULOSIN HCL 0.4 MG CAP PO SCH (10:35)
[2022-06-23] MEDS: DULoxetine HCL 60 MG CAPSULE.DR PO SCH ×2 (10:40→22:12)
[2022-06-23] MEDS: METHOCARBAMOL 500 MG TABLET PO PRN (10:41)
[2022-06-23] MEDS: LACTULOSE 20 GM/30 ML UDC (FOR ORAL USE ONLY) PO SCH ×4 (11:04→22:12)
[2022-06-23] MEDS: IBUPROFEN 600 MG TABLET (FP) PO PRN (19:57)
[2022-06-23] MEDS: THIAMINE HCL 100 MG TABLET (FP) PO SCH (22:11)
[2022-06-23] MEDS: traZODone HCL 100 MG TABLET (FP) PO SCH (22:11)
[2022-06-24] MEDS ORDERED: chlordiazePOXIDE HCL 10 MG CAPSULE PO PRN
[2022-06-24] MEDS: MAG HYDROX/AL HYDROX/SIMETH 30 ML UNIT-DOSE CUP PO PRN (01:07)
[2022-06-24] MEDS: IBUPROFEN 600 MG TABLET (FP) PO PRN ×3 (02:58→22:05)
[2022-06-24] MEDS: BENZOCAINE/MENTHOL (CHLORASEPTIC ) LOZENGE MM PRN (02:59)
[2022-06-24] MEDS: chlordiazePOXIDE HCL 10 MG CAPSULE PO SCH ×4 (05:28→22:02)
[2022-06-24] MEDS: GABAPENTIN 400 MG CAPSULE PO SCH ×3 (05:28→22:03)
[2022-06-24] MEDS: METHOCARBAMOL 500 MG TABLET PO PRN ×2 (05:32→10:33)
[2022-06-24] MEDS: INSULIN SLIDING SCALE (NOVOLOG) 1 VIAL SQ SCH ×4 (06:49→22:10)
[2022-06-24] MEDS: TAMSULOSIN HCL 0.4 MG CAP PO SCH (07:53)
[2022-06-24] MEDS: PRENATAL VITAMINS W/ FOLIC ACID TABLET (FP) PO SCH (10:33)
[2022-06-24] MEDS: PANTOPRAZOLE 40 MG TABLET PO SCH ×2 (10:33→22:02)
[2022-06-24] MEDS: LACTULOSE 20 GM/30 ML UDC (FOR ORAL USE ONLY) PO SCH ×5 (10:35→23:07)
[2022-06-24] MEDS: DULoxetine HCL 60 MG CAPSULE.DR PO SCH ×2 (10:35→22:03)
[2022-06-24] MEDS ORDERED: INSULIN (NOVOLOG) ASPART 100 UNITS/ML 10ML VIAL ONE ×3 (11:51→22:00)
[2022-06-24] MEDS: traZODone HCL 100 MG TABLET (FP) PO SCH (22:02)
[2022-06-24] MEDS: SUVOREXANT 5 MG TABLET PO PRN (22:02)
[2022-06-24] MEDS: THIAMINE HCL 100 MG TABLET (FP) PO SCH (22:02)
[2022-06-24] MEDS ORDERED: cloNIDine HCL 0.1 MG TABLET PO ONE (23:15)
[2022-06-25] MEDS: MAG HYDROX/AL HYDROX/SIMETH 30 ML UNIT-DOSE CUP PO PRN (00:42)
[2022-06-25] MEDS: BENZOCAINE/MENTHOL (CHLORASEPTIC ) LOZENGE MM PRN (02:49)
[2022-06-25] MEDS: METHOCARBAMOL 500 MG TABLET PO PRN ×2 (02:49→10:27)
[2022-06-25] MEDS: guaiFENesin/D-METHORPHAN HB 10 ML UNIT-DOSE CUPS PO PRN ×2 (03:53→23:29)
[2022-06-25] MEDS: chlordiazePOXIDE HCL 10 MG CAPSULE PO SCH ×2 (05:18→17:09)
[2022-06-25] MEDS: GABAPENTIN 400 MG CAPSULE PO SCH ×3 (05:19→21:34)
[2022-06-25] MEDS: INSULIN SLIDING SCALE (NOVOLOG) 1 VIAL SQ SCH ×4 (07:52→21:40)
[2022-06-25] MEDS: DULoxetine HCL 60 MG CAPSULE.DR PO SCH ×2 (10:25→21:41)
[2022-06-25] MEDS: TAMSULOSIN HCL 0.4 MG CAP PO SCH (10:25)
[2022-06-25] MEDS: PANTOPRAZOLE 40 MG TABLET PO SCH ×2 (10:25→21:34)
[2022-06-25] MEDS: LACTULOSE 20 GM/30 ML UDC (FOR ORAL USE ONLY) PO SCH ×4 (10:26→21:51)
[2022-06-25] MEDS: PRENATAL VITAMINS W/ FOLIC ACID TABLET (FP) PO SCH (10:35)
[2022-06-25] MEDS ORDERED: INSULIN (NOVOLOG) ASPART 100 UNITS/ML 10ML VIAL ONE ×2 (11:36→22:50)
[2022-06-25] MEDS: IBUPROFEN 600 MG TABLET (FP) PO PRN (19:15)
[2022-06-25 20:50] VITALS: RESP 18
[2022-06-25] MEDS: traZODone HCL 100 MG TABLET (FP) PO SCH (21:34)
[2022-06-25] MEDS: THIAMINE HCL 100 MG TABLET (FP) PO SCH (21:35)
[2022-06-25] MEDS: SUVOREXANT 5 MG TABLET PO PRN (21:50)
[2022-06-26] MEDS ORDERED: chlordiazePOXIDE HCL 10 MG CAPSULE PO ONE (05:00)
[2022-06-26] MEDS: GABAPENTIN 400 MG CAPSULE PO SCH (05:40)
[2022-06-26] MEDS: METHOCARBAMOL 500 MG TABLET PO PRN (05:44)
[2022-06-26] MEDS: IBUPROFEN 600 MG TABLET (FP) PO PRN (05:44)
[2022-06-26] MEDS ORDERED: INSULIN (NOVOLOG) ASPART 100 UNITS/ML 10ML VIAL ONE ×2 (05:45→07:01)
[2022-06-26] MEDS: INSULIN SLIDING SCALE (NOVOLOG) 1 VIAL SQ SCH (07:00)
[2022-06-26 09:12] VITALS: BP 124/74; PULSE 96; TEMP 98.4
[2022-06-26] MEDS: TAMSULOSIN HCL 0.4 MG CAP PO SCH (10:17)
[2022-06-26] MEDS: PRENATAL VITAMINS W/ FOLIC ACID TABLET (FP) PO SCH (10:17)
[2022-06-26] MEDS: PANTOPRAZOLE 40 MG TABLET PO SCH (10:17)
[2022-06-26] MEDS: DULoxetine HCL 60 MG CAPSULE.DR PO SCH (10:17)
[2022-06-26] MEDS: LACTULOSE 20 GM/30 ML UDC (FOR ORAL USE ONLY) PO SCH (10:18)
== END 2022-06-26 10:57 | disposition other institution (70) | DRG 897 ==
LOC: YASAS 09:29 → Y3N 12:39 → Y6N 15:05
PROVIDERS: ADMIT Allergy & Immunology; ATTEND Surgery
PROC: HZ2ZZZZ Detoxification Services for Substance Abuse Treatment (ICD-10-PCS; principal; 2022-06-21)
DX: F10.230 Alcohol dependence with withdrawal, uncomplicated (principal); F10.280 Alcohol dependence with alcohol-induced anxiety disorder; F10.282 Alcohol dependence with alcohol-induced sleep disorder; F41.8 Other specified anxiety disorders; E78.5 Hyperlipidemia, unspecified; I10 Essential (primary) hypertension; J45.20 Mild intermittent asthma, uncomplicated; K21.9 Gastro-esophageal reflux disease without esophagitis; E11.9 Type 2 diabetes mellitus without complications; Z79.84 Long term (current) use of oral hypoglycemic drugs; N40.0 Benign prostatic hyperplasia without lower urinary tract symptoms; E66.9 Obesity, unspecified; Z68.35 Body mass index [BMI] 35.0-35.9, adult; R79.89 Other specified abnormal findings of blood chemistry; R05.9 Cough, unspecified; Z96.652 Presence of left artificial knee joint; Z98.2 Presence of cerebrospinal fluid drainage device; Z99.89 Dependence on other enabling machines and devices
CPT/HCPCS: 36415; 80053; 82140; 82962; 85027; 86780; C9803-CS; U0003; U0005

== ENCOUNTER 2022-06-26 11:06 | Inpatient (IN) | payer OTHER ==
[2022-06-26] MEDS ORDERED: P-EPHED 60MG/TRIPROLIDI 2.5MG TABLET PO PRN (11:12)
[2022-06-26] MEDS ORDERED: LOPERAMIDE HCL 2 MG CAPSULE PO PRN (11:12)
[2022-06-26] MEDS ORDERED: POLYETHYLENE GLYCOL (HEALTHYLAX) 3350 17 GM PACKET PO PRN (11:12)
[2022-06-26] MEDS ORDERED: MAGNESIUM HYDROX 2400MG/30ML ORAL SUSPENSION 30 ML CUP PO PRN (11:12)
[2022-06-26] MEDS ORDERED: NICOTINE 10 MG CARTRIDGE (INHALER) IH PRN (11:12)
[2022-06-26] MEDS ORDERED: BENZOCAINE/MENTHOL (CHLORASEPTIC ) LOZENGE MM PRN (11:12)
[2022-06-26] MEDS ORDERED: ACETAMINOPHEN 325 MG TABLET (FP) PO PRN (11:12)
[2022-06-26] MEDS ORDERED: INSULIN (NOVOLOG) ASPART 100 UNITS/ML 10ML VIAL SQ ONE (12:29)
[2022-06-26] MEDS ORDERED: INSULIN SLIDING SCALE (NOVOLOG) 1 VIAL SQ ONE ×3 (12:33→21:55)
[2022-06-26] MEDS: GABAPENTIN 300 MG CAPSULE PO SCH (12:59)
[2022-06-26] MEDS: LACTULOSE 20 GM/30 ML UDC (FOR ORAL USE ONLY) PO SCH ×3 (13:00→21:28)
[2022-06-26] MEDS: guaiFENesin 200 MG/10 ML 10 ML UNIT-DOSE CUPS PO PRN (14:59)
[2022-06-26] MEDS ORDERED: ALBUTEROL SO4 HFA INHALER IH PRN (15:49)
[2022-06-26] MEDS: metFORMIN HCL 500 MG TABLET (FP) PO SCH (16:46)
[2022-06-26] MEDS: INSULIN SLIDING SCALE (NOVOLOG) 1 VIAL SQ SCH ×2 (16:49→22:02)
[2022-06-26] MEDS: AMOX TR/POT CLAV 875MG/125MG TABLETS (FP) PO SCH (17:31)
[2022-06-26] MEDS: traZODone HCL 100 MG TABLET (FP) PO SCH (21:24)
[2022-06-26] MEDS: THIAMINE HCL 100 MG TABLET (FP) PO SCH (21:26)
[2022-06-26] MEDS: SUVOREXANT 5 MG TABLET PO PRN (21:28)
[2022-06-26] MEDS ORDERED: DULoxetine HCL 60 MG CAPSULE.DR PO SCH (22:00)
[2022-06-26] MEDS ORDERED: MELATONIN 5 MG TABLETS PO SCH (22:00)
[2022-06-27] MEDS: INSULIN SLIDING SCALE (NOVOLOG) 1 VIAL SQ SCH ×4 (06:19→22:58)
[2022-06-27] MEDS: hydrOXYzine PAMOATE 25 MG CAPSULE (FP) PO PRN (06:22)
[2022-06-27] MEDS: metFORMIN HCL 500 MG TABLET (FP) PO SCH ×2 (06:29→16:39)
[2022-06-27] MEDS: TAMSULOSIN HCL 0.4 MG CAP PO SCH (07:07)
[2022-06-27] MEDS: AMOX TR/POT CLAV 875MG/125MG TABLETS (FP) PO SCH ×2 (07:07→16:39)
[2022-06-27] MEDS: NICOTINE 7 MG/24 HOURS TOPICAL PATCH TD SCH (09:49)
[2022-06-27] MEDS: LACTULOSE 20 GM/30 ML UDC (FOR ORAL USE ONLY) PO SCH ×4 (09:50→21:06)
[2022-06-27] MEDS: PRENATAL VITAMINS W/ FOLIC ACID TABLET (FP) PO SCH (09:50)
[2022-06-27] MEDS: IBUPROFEN 400 MG TABLET (FP) PO PRN (09:51)
[2022-06-27] MEDS: METHOCARBAMOL 500 MG TABLET PO PRN (16:39)
[2022-06-27] MEDS: guaiFENesin 200 MG/10 ML 10 ML UNIT-DOSE CUPS PO PRN (16:43)
[2022-06-27] MEDS: traZODone HCL 100 MG TABLET (FP) PO SCH (21:08)
[2022-06-27] MEDS: THIAMINE HCL 100 MG TABLET (FP) PO SCH (21:09)
[2022-06-27] MEDS: FLUOCINONIDE 0.05% CREAM (15 GM TUBE) TP SCH (21:09)
[2022-06-27] MEDS: SUVOREXANT 5 MG TABLET PO PRN (21:11)
[2022-06-27] MEDS: GABAPENTIN 300 MG CAPSULE PO SCH (23:01)
[2022-06-28] MEDS: MAG HYDROX/AL HYDROX/SIMETH 30 ML UNIT-DOSE CUP PO PRN (00:40)
[2022-06-28] MEDS: metFORMIN HCL 500 MG TABLET (FP) PO SCH ×2 (06:03→16:34)
[2022-06-28] MEDS: INSULIN SLIDING SCALE (NOVOLOG) 1 VIAL SQ SCH ×4 (06:03→21:19)
[2022-06-28] MEDS: GABAPENTIN 300 MG CAPSULE PO SCH (06:05)
[2022-06-28] MEDS: METHOCARBAMOL 500 MG TABLET PO PRN ×2 (06:05→21:16)
[2022-06-28] MEDS: AMOX TR/POT CLAV 875MG/125MG TABLETS (FP) PO SCH ×2 (07:11→17:55)
[2022-06-28] MEDS: TAMSULOSIN HCL 0.4 MG CAP PO SCH (07:12)
[2022-06-28] MEDS: LACTULOSE 20 GM/30 ML UDC (FOR ORAL USE ONLY) PO SCH ×4 (11:01→21:13)
[2022-06-28] MEDS: PRENATAL VITAMINS W/ FOLIC ACID TABLET (FP) PO SCH (11:02)
[2022-06-28] MEDS: NICOTINE 7 MG/24 HOURS TOPICAL PATCH TD SCH (11:02)
[2022-06-28] MEDS: FLUOCINONIDE 0.05% CREAM (15 GM TUBE) TP SCH ×2 (11:06→21:59)
[2022-06-28 12:07] LABS: HEMATOCRIT 35.1 % (35.4-49); HEMOGLOBIN 11.4 GM/dL (11.7-16.9); MCH 26.2 pg (25.7-33.7); MCHC 32.6 g/dl (32.0-35.9); MEAN CELL VOLUME 80.5 fl (80-96); MEAN PLT VOLUME 7.9 fl (7.5-11.1); PLATELET COUNT 227 10^3/uL (134-434); RBC 4.36 M/mm3 (4.00-5.60); RDW 15.9 % (11.9-15.9); WHITE BLOOD COUNT 8.4 K/mm3 (4.0-10.0)
[2022-06-28 12:18] LABS: BILIRUBIN,TOTAL 0.5 mg/dL (0.2-1); CALCIUM 8.8 mg/dL (8.5-10.1)
[2022-06-28 12:19] LABS: BLOOD UREA NITROGEN 9.9 mg/dL (7-18)
[2022-06-28 12:24] LABS: TOT PROT 6.1 g/dl (6.4-8.2)
[2022-06-28 12:26] LABS: ALBUMIN 2.9 g/dl (3.4-5.0)
[2022-06-28 13:09] LABS: ANISOCYTOSIS 2+; MACROCYTOSIS 0; PLATELET ESTIMATE INCREASED
[2022-06-28] MEDS: IBUPROFEN 400 MG TABLET (FP) PO PRN (16:35)
[2022-06-28] MEDS: THIAMINE HCL 100 MG TABLET (FP) PO SCH (21:13)
[2022-06-28] MEDS: traZODone HCL 100 MG TABLET (FP) PO SCH (21:14)
[2022-06-28] MEDS: SUVOREXANT 5 MG TABLET PO PRN (21:17)
[2022-06-28] MEDS: guaiFENesin 200 MG/10 ML 10 ML UNIT-DOSE CUPS PO PRN (21:18)
[2022-06-29] MEDS: metFORMIN HCL 500 MG TABLET (FP) PO SCH ×2 (06:08→16:50)
[2022-06-29] MEDS: hydrOXYzine PAMOATE 25 MG CAPSULE (FP) PO PRN (06:09)
[2022-06-29] MEDS: INSULIN SLIDING SCALE (NOVOLOG) 1 VIAL SQ SCH ×4 (06:11→21:30)
[2022-06-29] MEDS: AMOX TR/POT CLAV 875MG/125MG TABLETS (FP) PO SCH ×2 (07:23→16:50)
[2022-06-29] MEDS: TAMSULOSIN HCL 0.4 MG CAP PO SCH (07:23)
[2022-06-29] MEDS: LACTULOSE 20 GM/30 ML UDC (FOR ORAL USE ONLY) PO SCH ×2 (09:31→09:33)
[2022-06-29] MEDS: PRENATAL VITAMINS W/ FOLIC ACID TABLET (FP) PO SCH (09:31)
[2022-06-29] MEDS: NICOTINE 7 MG/24 HOURS TOPICAL PATCH TD SCH (10:16)
[2022-06-29] MEDS: FLUOCINONIDE 0.05% CREAM (15 GM TUBE) TP SCH ×2 (10:16→21:27)
[2022-06-29] MEDS: guaiFENesin 200 MG/10 ML 10 ML UNIT-DOSE CUPS PO PRN (10:36)
[2022-06-29] MEDS: IBUPROFEN 400 MG TABLET (FP) PO PRN (10:38)
[2022-06-29] MEDS: GABAPENTIN 400 MG CAPSULE PO SCH ×2 (13:10→21:27)
[2022-06-29] MEDS: traZODone HCL 100 MG TABLET (FP) PO SCH (21:27)
[2022-06-29] MEDS: THIAMINE HCL 100 MG TABLET (FP) PO SCH (21:27)
[2022-06-29] MEDS: METHOCARBAMOL 500 MG TABLET PO PRN (21:27)
[2022-06-29] MEDS: SUVOREXANT 5 MG TABLET PO PRN (21:29)
[2022-06-30] MEDS: INSULIN SLIDING SCALE (NOVOLOG) 1 VIAL SQ SCH ×4 (06:26→21:09)
[2022-06-30] MEDS: METHOCARBAMOL 500 MG TABLET PO PRN ×2 (06:28→21:06)
[2022-06-30] MEDS: metFORMIN HCL 500 MG TABLET (FP) PO SCH ×2 (06:28→16:18)
[2022-06-30] MEDS: GABAPENTIN 400 MG CAPSULE PO SCH ×3 (06:28→21:06)
[2022-06-30] MEDS: guaiFENesin 200 MG/10 ML 10 ML UNIT-DOSE CUPS PO PRN ×2 (06:31→19:37)
[2022-06-30] MEDS: TAMSULOSIN HCL 0.4 MG CAP PO SCH (07:03)
[2022-06-30] MEDS: AMOX TR/POT CLAV 875MG/125MG TABLETS (FP) PO SCH ×2 (07:03→16:30)
[2022-06-30] MEDS: PRENATAL VITAMINS W/ FOLIC ACID TABLET (FP) PO SCH (09:50)
[2022-06-30] MEDS: NICOTINE 7 MG/24 HOURS TOPICAL PATCH TD SCH (09:50)
[2022-06-30] MEDS: FLUOCINONIDE 0.05% CREAM (15 GM TUBE) TP SCH ×2 (09:51→21:08)
[2022-06-30] MEDS: IBUPROFEN 400 MG TABLET (FP) PO PRN ×2 (09:52→19:36)
[2022-06-30] MEDS: THIAMINE HCL 100 MG TABLET (FP) PO SCH (21:06)
[2022-06-30] MEDS: SUVOREXANT 5 MG TABLET PO PRN (21:06)
[2022-06-30] MEDS: traZODone HCL 100 MG TABLET (FP) PO SCH (21:06)
[2022-07-01] MEDS: INSULIN SLIDING SCALE (NOVOLOG) 1 VIAL SQ SCH ×4 (06:11→21:28)
[2022-07-01] MEDS: GABAPENTIN 400 MG CAPSULE PO SCH ×3 (06:12→21:26)
[2022-07-01] MEDS: metFORMIN HCL 500 MG TABLET (FP) PO SCH ×2 (06:13→16:58)
[2022-07-01] MEDS: METHOCARBAMOL 500 MG TABLET PO PRN ×3 (06:15→21:26)
[2022-07-01] MEDS: TAMSULOSIN HCL 0.4 MG CAP PO SCH (07:12)
[2022-07-01] MEDS: AMOX TR/POT CLAV 875MG/125MG TABLETS (FP) PO SCH ×2 (07:12→17:00)
[2022-07-01] MEDS: FLUOCINONIDE 0.05% CREAM (15 GM TUBE) TP SCH ×2 (10:13→21:28)
[2022-07-01] MEDS: PRENATAL VITAMINS W/ FOLIC ACID TABLET (FP) PO SCH (10:14)
[2022-07-01] MEDS: NICOTINE 7 MG/24 HOURS TOPICAL PATCH TD SCH (10:14)
[2022-07-01] MEDS: IBUPROFEN 400 MG TABLET (FP) PO PRN ×2 (10:15→16:59)
[2022-07-01] MEDS: THIAMINE HCL 100 MG TABLET (FP) PO SCH (21:25)
[2022-07-01] MEDS: traZODone HCL 100 MG TABLET (FP) PO SCH (21:26)
[2022-07-01] MEDS: SUVOREXANT 5 MG TABLET PO PRN (21:27)
[2022-07-02] MEDS: MAG HYDROX/AL HYDROX/SIMETH 30 ML UNIT-DOSE CUP PO PRN ×2 (03:28→22:08)
[2022-07-02] MEDS: INSULIN SLIDING SCALE (NOVOLOG) 1 VIAL SQ SCH ×4 (06:43→22:46)
[2022-07-02] MEDS: GABAPENTIN 400 MG CAPSULE PO SCH ×3 (06:43→21:16)
[2022-07-02] MEDS: metFORMIN HCL 500 MG TABLET (FP) PO SCH ×2 (06:43→16:28)
[2022-07-02] MEDS: AMOX TR/POT CLAV 875MG/125MG TABLETS (FP) PO SCH ×2 (07:06→16:31)
[2022-07-02] MEDS: amLODIPine BESYLATE 10 MG TABLET (FP) PO SCH ×2 (07:06→10:16)
[2022-07-02] MEDS: TAMSULOSIN HCL 0.4 MG CAP PO SCH (07:06)
[2022-07-02] MEDS: NICOTINE 7 MG/24 HOURS TOPICAL PATCH TD SCH (10:16)
[2022-07-02] MEDS: PRENATAL VITAMINS W/ FOLIC ACID TABLET (FP) PO SCH (10:16)
[2022-07-02] MEDS: FLUOCINONIDE 0.05% CREAM (15 GM TUBE) TP SCH ×2 (10:17→21:16)
[2022-07-02] MEDS: METHOCARBAMOL 500 MG TABLET PO PRN ×2 (13:46→21:16)
[2022-07-02] MEDS: IBUPROFEN 400 MG TABLET (FP) PO PRN ×2 (13:47→21:16)
[2022-07-02] MEDS: traZODone HCL 100 MG TABLET (FP) PO SCH (21:16)
[2022-07-02] MEDS: THIAMINE HCL 100 MG TABLET (FP) PO SCH (21:16)
[2022-07-02] MEDS: hydrOXYzine PAMOATE 25 MG CAPSULE (FP) PO PRN (21:17)
[2022-07-02] MEDS ORDERED: INSULIN (NOVOLOG) ASPART 100 UNITS/ML 10ML VIAL SQ ONE (23:17)
[2022-07-02] MEDS: SUVOREXANT 5 MG TABLET PO PRN (23:45)
[2022-07-03] MEDS: INSULIN SLIDING SCALE (NOVOLOG) 1 VIAL SQ SCH ×4 (06:11→21:23)
[2022-07-03] MEDS: metFORMIN HCL 500 MG TABLET (FP) PO SCH ×2 (06:12→16:30)
[2022-07-03] MEDS: GABAPENTIN 400 MG CAPSULE PO SCH ×3 (06:12→21:19)
[2022-07-03] MEDS: IBUPROFEN 400 MG TABLET (FP) PO PRN ×2 (06:13→21:20)
[2022-07-03] MEDS: AMOX TR/POT CLAV 875MG/125MG TABLETS (FP) PO SCH (07:09)
[2022-07-03] MEDS: TAMSULOSIN HCL 0.4 MG CAP PO SCH (07:09)
[2022-07-03] MEDS: PRENATAL VITAMINS W/ FOLIC ACID TABLET (FP) PO SCH (09:49)
[2022-07-03] MEDS: NICOTINE 7 MG/24 HOURS TOPICAL PATCH TD SCH (09:49)
[2022-07-03] MEDS: FLUOCINONIDE 0.05% CREAM (15 GM TUBE) TP SCH ×2 (09:50→21:20)
[2022-07-03] MEDS: amLODIPine BESYLATE 10 MG TABLET (FP) PO SCH (09:50)
[2022-07-03] MEDS: METHOCARBAMOL 500 MG TABLET PO PRN (21:19)
[2022-07-03] MEDS: THIAMINE HCL 100 MG TABLET (FP) PO SCH (21:19)
[2022-07-03] MEDS: traZODone HCL 100 MG TABLET (FP) PO SCH (21:19)
[2022-07-03] MEDS: SUVOREXANT 5 MG TABLET PO PRN (21:20)
[2022-07-04] MEDS: INSULIN SLIDING SCALE (NOVOLOG) 1 VIAL SQ SCH ×4 (06:26→21:33)
[2022-07-04] MEDS: IBUPROFEN 400 MG TABLET (FP) PO PRN ×2 (06:30→13:15)
[2022-07-04] MEDS: GABAPENTIN 400 MG CAPSULE PO SCH ×3 (06:31→21:28)
[2022-07-04] MEDS: metFORMIN HCL 500 MG TABLET (FP) PO SCH ×2 (06:32→16:49)
[2022-07-04] MEDS: TAMSULOSIN HCL 0.4 MG CAP PO SCH (07:01)
[2022-07-04] MEDS: NICOTINE 7 MG/24 HOURS TOPICAL PATCH TD SCH (10:16)
[2022-07-04] MEDS: PRENATAL VITAMINS W/ FOLIC ACID TABLET (FP) PO SCH (10:16)
[2022-07-04] MEDS: amLODIPine BESYLATE 10 MG TABLET (FP) PO SCH (10:16)
[2022-07-04] MEDS: FLUOCINONIDE 0.05% CREAM (15 GM TUBE) TP SCH ×2 (10:17→21:29)
[2022-07-04 10:41] VITALS: RESP 18
[2022-07-04] MEDS: MAG HYDROX/AL HYDROX/SIMETH 30 ML UNIT-DOSE CUP PO PRN ×2 (10:49→22:05)
[2022-07-04] MEDS ORDERED: WITCH HAZEL 50% (TUCKS) 40 PAD/JAR PAD TP PRN (13:04)
[2022-07-04] MEDS ORDERED: ARTIFICIAL TEARS (POLYVINYL ALCOHOL) OPTH DROPS OU PRN (13:05)
[2022-07-04] MEDS ORDERED: PATIENT'S OWN MEDICATION (NON-FORMULARY) (Semaglutide [Ozempic] 1 MG/0.75 ML Pen.Injctr) SQ SCH (13:15)
[2022-07-04] MEDS: METHOCARBAMOL 500 MG TABLET PO PRN ×2 (13:16→21:29)
[2022-07-04] MEDS: hydrOXYzine PAMOATE 25 MG CAPSULE (FP) PO PRN (15:32)
[2022-07-04] MEDS: traZODone HCL 100 MG TABLET (FP) PO SCH (21:28)
[2022-07-04] MEDS: THIAMINE HCL 100 MG TABLET (FP) PO SCH (21:29)
[2022-07-04] MEDS: SUVOREXANT 5 MG TABLET PO PRN (21:30)
[2022-07-05] MEDS: INSULIN SLIDING SCALE (NOVOLOG) 1 VIAL SQ SCH ×4 (06:09→21:21)
[2022-07-05] MEDS: GABAPENTIN 400 MG CAPSULE PO SCH ×3 (06:10→21:16)
[2022-07-05] MEDS: metFORMIN HCL 500 MG TABLET (FP) PO SCH ×2 (06:10→17:06)
[2022-07-05] MEDS: IBUPROFEN 400 MG TABLET (FP) PO PRN ×2 (06:11→11:17)
[2022-07-05] MEDS: hydrOXYzine PAMOATE 25 MG CAPSULE (FP) PO PRN ×2 (06:11→10:12)
[2022-07-05] MEDS: TAMSULOSIN HCL 0.4 MG CAP PO SCH (07:17)
[2022-07-05] MEDS ORDERED: HYDROCORTISONE 2.5% TOPICAL CREAM 30 GM TUBE TP PRN (09:24)
[2022-07-05] MEDS: NICOTINE 7 MG/24 HOURS TOPICAL PATCH TD SCH (10:09)
[2022-07-05] MEDS: FLUOCINONIDE 0.05% CREAM (15 GM TUBE) TP SCH ×2 (10:09→21:20)
[2022-07-05] MEDS: amLODIPine BESYLATE 10 MG TABLET (FP) PO SCH (10:10)
[2022-07-05] MEDS: PRENATAL VITAMINS W/ FOLIC ACID TABLET (FP) PO SCH (10:10)
[2022-07-05] MEDS: METHOCARBAMOL 500 MG TABLET PO PRN ×2 (10:12→21:16)
[2022-07-05] MEDS: THIAMINE HCL 100 MG TABLET (FP) PO SCH (21:15)
[2022-07-05] MEDS: traZODone HCL 100 MG TABLET (FP) PO SCH (21:16)
[2022-07-05] MEDS: MAG HYDROX/AL HYDROX/SIMETH 30 ML UNIT-DOSE CUP PO PRN (21:17)
[2022-07-05] MEDS ORDERED: SUVOREXANT 5 MG TABLET PO PRN (22:00)
[2022-07-06] MEDS: MAG HYDROX/AL HYDROX/SIMETH 30 ML UNIT-DOSE CUP PO PRN (03:08)
[2022-07-06] MEDS: INSULIN SLIDING SCALE (NOVOLOG) 1 VIAL SQ SCH (06:05)
[2022-07-06] MEDS: metFORMIN HCL 500 MG TABLET (FP) PO SCH (06:06)
[2022-07-06] MEDS: IBUPROFEN 400 MG TABLET (FP) PO PRN (06:06)
[2022-07-06] MEDS: GABAPENTIN 400 MG CAPSULE PO SCH (06:06)
[2022-07-06] MEDS: hydrOXYzine PAMOATE 25 MG CAPSULE (FP) PO PRN (06:06)
[2022-07-06 07:01] VITALS: BP 150/87; PULSE 96; TEMP 97.8
[2022-07-06] MEDS: TAMSULOSIN HCL 0.4 MG CAP PO SCH (07:44)
[2022-07-06] MEDS: FLUOCINONIDE 0.05% CREAM (15 GM TUBE) TP SCH (09:04)
[2022-07-06] MEDS: PRENATAL VITAMINS W/ FOLIC ACID TABLET (FP) PO SCH (09:05)
[2022-07-06] MEDS: amLODIPine BESYLATE 10 MG TABLET (FP) PO SCH (09:05)
[2022-07-06] MEDS: NICOTINE 7 MG/24 HOURS TOPICAL PATCH TD SCH (09:05)
[2022-07-14] MEDS ORDERED: NALTREXONE MICROSPHERES (VIVITROL) 380 MG DISP.SYRIN IM ONE (08:00)
== END 2022-07-06 09:06 | disposition home or self-care (01) | DRG 895 ==
LOC: YASAS 11:06 → Y3W 11:09
PROVIDERS: ADMIT Allergy & Immunology; ATTEND Psychiatry & Neurology Pain Medicine
PROC: HZ42ZZZ Group Counseling for Substance Abuse Treatment, Cognitive-Behavioral (ICD-10-PCS; principal; 2022-06-26)
DX: F10.20 Alcohol dependence, uncomplicated (principal); E72.20 Disorder of urea cycle metabolism, unspecified; F41.8 Other specified anxiety disorders; I10 Essential (primary) hypertension; E78.5 Hyperlipidemia, unspecified; E11.9 Type 2 diabetes mellitus without complications; Z79.85 Long-term (current) use of injectable non-insulin antidiabetic drugs; Z79.4 Long term (current) use of insulin; K21.9 Gastro-esophageal reflux disease without esophagitis; H04.323 Acute dacryocystitis of bilateral lacrimal passages; K62.89 Other specified diseases of anus and rectum; M50.20 Other cervical disc displacement, unspecified cervical region; N40.0 Benign prostatic hyperplasia without lower urinary tract symptoms; R26.89 Other abnormalities of gait and mobility; E66.9 Obesity, unspecified; Z68.35 Body mass index [BMI] 35.0-35.9, adult; Z87.01 Personal history of pneumonia (recurrent); Z99.89 Dependence on other enabling machines and devices; Z98.2 Presence of cerebrospinal fluid drainage device; Z98.890 Other specified postprocedural states
CPT/HCPCS: 36415; 80053; 82140; 82962; 85025; 86803

== ENCOUNTER 2022-08-24 09:38 | Inpatient (IN) | payer OTHER ==
[2022-08-24 10:12] VITALS: BMI 35.7
[2022-08-24] MEDS ORDERED: ACETAMINOPHEN 325 MG TABLET (FP) PO PRN ×2 (10:54)
[2022-08-24] MEDS ORDERED: MAG HYDROX/AL HYDROX/SIMETH 30 ML UNIT-DOSE CUP PO PRN (10:54)
[2022-08-24] MEDS ORDERED: IBUPROFEN 600 MG TABLET (FP) PO PRN (10:54)
[2022-08-24] MEDS ORDERED: BISMUTH SUBSALICYLATE 262 MG/15 ML BTL PO PRN (10:54)
[2022-08-24] MEDS ORDERED: NALOXONE HCL (KLOXXADO) 8 MG SPRAY NS PRN (10:54)
[2022-08-24] MEDS ORDERED: IBUPROFEN 400 MG TABLET (FP) PO PRN (10:54)
[2022-08-24] MEDS ORDERED: ONDANSETRON *ODT* 4 MG TABLET SL PRN (10:54)
[2022-08-24] MEDS ORDERED: POLYETHYLENE GLYCOL (HEALTHYLAX) 3350 17 GM PACKET PO PRN (10:54)
[2022-08-24] MEDS ORDERED: MAGNESIUM HYDROX 2400MG/30ML ORAL SUSPENSION 30 ML CUP PO PRN (10:54)
[2022-08-24] MEDS ORDERED: DICYCLOMINE HCL 10 MG CAPSULE PO PRN (10:54)
[2022-08-24] MEDS ORDERED: NICOTINE 10 MG CARTRIDGE (INHALER) IH PRN (10:54)
[2022-08-24] MEDS ORDERED: LOPERAMIDE HCL 2 MG CAPSULE PO PRN (10:54)
[2022-08-24] MEDS ORDERED: chlordiazePOXIDE HCL 25 MG CAPSULE PO SCH (11:00)
[2022-08-24] MEDS: PANTOPRAZOLE 40 MG TABLET PO SCH ×2 (12:26→23:10)
[2022-08-24] MEDS: PRENATAL VITAMINS W/ FOLIC ACID TABLET (FP) PO SCH (12:26)
[2022-08-24] MEDS: TAMSULOSIN HCL 0.4 MG CAP PO SCH (12:26)
[2022-08-24] MEDS ORDERED: TAMSULOSIN HCL 0.4 MG CAP PO ONE (12:27)
[2022-08-24] MEDS ORDERED: LORazepam 1 MG TABLET PO PRN (12:55)
[2022-08-24] MEDS: hydrOXYzine PAMOATE 25 MG CAPSULE (FP) PO PRN ×2 (15:31→23:09)
[2022-08-24] MEDS ORDERED: LORazepam 2 MG TABLET PO SCH (17:00)
[2022-08-24] MEDS: LORazepam 1 MG TABLET PO SCH ×2 (17:23→23:10)
[2022-08-24] MEDS: INSULIN SLIDING SCALE (NOVOLOG) 1 VIAL SQ SCH ×2 (20:37→23:04)
[2022-08-24] MEDS ORDERED: PATIENT'S OWN MEDICATION (NON-FORMULARY) (Gabapentin Enacarbil [Horizant] 600 MG Tablet.Er PO SCH (22:00)
[2022-08-24] MEDS ORDERED: MELATONIN 5 MG TABLETS PO SCH (22:00)
[2022-08-24] MEDS ORDERED: METOPROLOL TARTRATE 25 MG TABLET (FP) PO ONE (23:03)
[2022-08-24] MEDS: GABAPENTIN 400 MG CAPSULE PO SCH (23:08)
[2022-08-24] MEDS: THIAMINE HCL 100 MG TABLET (FP) PO SCH (23:09)
[2022-08-25] MEDS: BENZOCAINE/MENTHOL (CHLORASEPTIC ) LOZENGE MM PRN (03:09)
[2022-08-25] MEDS: GABAPENTIN 400 MG CAPSULE PO SCH ×3 (05:17→22:49)
[2022-08-25] MEDS: LORazepam 1 MG TABLET PO SCH ×4 (05:17→22:49)
[2022-08-25] MEDS: INSULIN SLIDING SCALE (NOVOLOG) 1 VIAL SQ SCH ×4 (06:13→22:46)
[2022-08-25] MEDS ORDERED: INSULIN SLIDING SCALE (NOVOLOG) 1 VIAL SQ ONE (06:22)
[2022-08-25] MEDS: TAMSULOSIN HCL 0.4 MG CAP PO SCH (09:08)
[2022-08-25] MEDS: PRENATAL VITAMINS W/ FOLIC ACID TABLET (FP) PO SCH (10:33)
[2022-08-25] MEDS: PANTOPRAZOLE 40 MG TABLET PO SCH ×2 (10:34→22:56)
[2022-08-25] MEDS ORDERED: INSULIN (NOVOLOG) ASPART 100 UNITS/ML 10ML VIAL SQ ONE (11:00)
[2022-08-25] MEDS ORDERED: METHOCARBAMOL 500 MG TABLET PO ONE (11:37)
[2022-08-25] MEDS ORDERED: guaiFENesin 200 MG/10 ML 10 ML UNIT-DOSE CUPS PO PRN (12:10)
[2022-08-25] MEDS: BACLOFEN 10 MG TABLET (FP) PO PRN (13:50)
[2022-08-25 14:18] LABS: HEMATOCRIT 39.7 % (35.4-49); HEMOGLOBIN 12.8 GM/dL (11.7-16.9); MCH 25.2 pg (25.7-33.7); MCHC 32.2 g/dl (32.0-35.9); MEAN CELL VOLUME 78.2 fl (80-96); MEAN PLT VOLUME 8.3 fl (7.5-11.1); PLATELET COUNT 200 10^3/uL (134-434); RBC 5.08 M/mm3 (4.00-5.60); RDW 16.1 % (11.9-15.9); WHITE BLOOD COUNT 8.5 K/mm3 (4.0-10.0)
[2022-08-25 14:37] LABS: CHLORIDE 98 mmol/L (98-107); SODIUM 133 mmol/L (136-145)
[2022-08-25 14:41] LABS: ALBUMIN 3.4 g/dl (3.4-5.0); CALCIUM 8.9 mg/dL (8.5-10.1)
[2022-08-25 14:42] LABS: ANION GAP 11 MMOL/L (8-16); BLOOD UREA NITROGEN 16.3 mg/dL (7-18); CO2 24 mmol/L (21-32)
[2022-08-25 14:44] LABS: CREATININE 1.6 mg/dL (0.55-1.3); SGOT/AST 20 U/L (15-37)
[2022-08-25 14:45] LABS: SGPT/ALT 22 U/L (13-61)
[2022-08-25 14:46] LABS: BILIRUBIN,TOTAL 0.6 mg/dL (0.2-1)
[2022-08-25 14:47] LABS: ALK PHOS 70 U/L (45-117)
[2022-08-25 14:48] LABS: TOT PROT 6.7 g/dl (6.4-8.2)
[2022-08-25 14:55] LABS: GLUCOSE,RANDOM 455 mg/dL (74-106)
[2022-08-25] MEDS ORDERED: traZODone HCL 100 MG TABLET (FP) PO SCH (22:00)
[2022-08-25] MEDS: THIAMINE HCL 100 MG TABLET (FP) PO SCH (22:48)
[2022-08-26] MEDS ORDERED: chlordiazePOXIDE HCL 25 MG CAPSULE PO SCH (05:00)
[2022-08-26] MEDS: LORazepam 1 MG TABLET PO SCH ×4 (05:19→22:40)
[2022-08-26] MEDS: GABAPENTIN 400 MG CAPSULE PO SCH ×3 (05:19→22:37)
[2022-08-26] MEDS: INSULIN SLIDING SCALE (NOVOLOG) 1 VIAL SQ SCH ×4 (06:22→22:41)
[2022-08-26] MEDS: TAMSULOSIN HCL 0.4 MG CAP PO SCH (09:05)
[2022-08-26] MEDS: PANTOPRAZOLE 40 MG TABLET PO SCH ×2 (10:32→22:37)
[2022-08-26] MEDS: PRENATAL VITAMINS W/ FOLIC ACID TABLET (FP) PO SCH (10:32)
[2022-08-26] MEDS ORDERED: TAMSULOSIN HCL 0.4 MG CAP PO ONE (12:45)
[2022-08-26] MEDS: traZODone HCL 100 MG TABLET (FP) PO SCH (22:38)
[2022-08-26] MEDS: THIAMINE HCL 100 MG TABLET (FP) PO SCH (22:39)
[2022-08-27] MEDS ORDERED: LORazepam 0.5 MG TABLET PO PRN
[2022-08-27] MEDS ORDERED: chlordiazePOXIDE HCL 10 MG CAPSULE PO SCH (05:00)
[2022-08-27] MEDS: LORazepam 0.5 MG TABLET PO SCH ×4 (05:51→21:59)
[2022-08-27] MEDS: GABAPENTIN 400 MG CAPSULE PO SCH ×3 (05:51→21:48)
[2022-08-27] MEDS: INSULIN SLIDING SCALE (NOVOLOG) 1 VIAL SQ SCH ×4 (06:26→21:49)
[2022-08-27] MEDS ORDERED: INSULIN SLIDING SCALE (NOVOLOG) 1 VIAL SQ ONE (06:42)
[2022-08-27] MEDS: TAMSULOSIN HCL 0.4 MG CAP PO SCH (09:03)
[2022-08-27] MEDS ORDERED: TAMSULOSIN HCL 0.4 MG CAP PO SCH ×2 (10:00)
[2022-08-27] MEDS: PRENATAL VITAMINS W/ FOLIC ACID TABLET (FP) PO SCH (10:17)
[2022-08-27] MEDS: PANTOPRAZOLE 40 MG TABLET PO SCH ×2 (10:17→21:48)
[2022-08-27] MEDS: hydrOXYzine PAMOATE 25 MG CAPSULE (FP) PO PRN (10:18)
[2022-08-27] MEDS: THIAMINE HCL 100 MG TABLET (FP) PO SCH (21:48)
[2022-08-27] MEDS: traZODone HCL 100 MG TABLET (FP) PO SCH (21:48)
[2022-08-28] MEDS ORDERED: INSULIN SLIDING SCALE (NOVOLOG) 1 VIAL SQ ONE ×2 (02:56→07:21)
[2022-08-28] MEDS ORDERED: LORazepam 0.5 MG TABLET PO ONE (05:00)
[2022-08-28] MEDS ORDERED: chlordiazePOXIDE HCL 10 MG CAPSULE PO SCH (05:00)
[2022-08-28] MEDS: GABAPENTIN 400 MG CAPSULE PO SCH ×3 (05:41→21:34)
[2022-08-28] MEDS: INSULIN SLIDING SCALE (NOVOLOG) 1 VIAL SQ SCH ×4 (07:06→21:31)
[2022-08-28] MEDS: PANTOPRAZOLE 40 MG TABLET PO SCH ×2 (09:06→21:34)
[2022-08-28] MEDS: TAMSULOSIN HCL 0.4 MG CAP PO SCH (09:06)
[2022-08-28] MEDS: PRENATAL VITAMINS W/ FOLIC ACID TABLET (FP) PO SCH (09:06)
[2022-08-28] MEDS: hydrOXYzine PAMOATE 25 MG CAPSULE (FP) PO PRN ×2 (09:08→22:39)
[2022-08-28] MEDS: THIAMINE HCL 100 MG TABLET (FP) PO SCH (21:34)
[2022-08-28] MEDS: traZODone HCL 100 MG TABLET (FP) PO SCH (21:35)
[2022-08-28] MEDS: BACLOFEN 10 MG TABLET (FP) PO PRN (22:44)
[2022-08-29] MEDS ORDERED: chlordiazePOXIDE HCL 10 MG CAPSULE PO ONE (05:00)
[2022-08-29] MEDS: GABAPENTIN 400 MG CAPSULE PO SCH ×2 (05:27→14:22)
[2022-08-29] MEDS: BENZOCAINE/MENTHOL (CHLORASEPTIC ) LOZENGE MM PRN (05:55)
[2022-08-29] MEDS: INSULIN SLIDING SCALE (NOVOLOG) 1 VIAL SQ SCH ×2 (06:04→11:54)
[2022-08-29] MEDS: TAMSULOSIN HCL 0.4 MG CAP PO SCH (09:18)
[2022-08-29] MEDS: PANTOPRAZOLE 40 MG TABLET PO SCH (09:18)
[2022-08-29] MEDS: PRENATAL VITAMINS W/ FOLIC ACID TABLET (FP) PO SCH (09:18)
[2022-08-29] MEDS: hydrOXYzine PAMOATE 25 MG CAPSULE (FP) PO PRN (10:14)
[2022-08-29 13:31] VITALS: BP 123/64; PULSE 95; RESP 17; TEMP 97.7
== END 2022-08-29 15:09 | disposition other institution (70) | DRG 897 ==
LOC: YASAS 09:38 → Y3N 11:45
PROVIDERS: ADMIT Allergy & Immunology; ATTEND Surgery
PROC: HZ2ZZZZ Detoxification Services for Substance Abuse Treatment (ICD-10-PCS; principal; 2022-08-24)
DX: F10.230 Alcohol dependence with withdrawal, uncomplicated (principal); F10.282 Alcohol dependence with alcohol-induced sleep disorder; I10 Essential (primary) hypertension; J45.909 Unspecified asthma, uncomplicated; K21.9 Gastro-esophageal reflux disease without esophagitis; M06.9 Rheumatoid arthritis, unspecified; M54.50 Low back pain, unspecified; G89.29 Other chronic pain; N40.0 Benign prostatic hyperplasia without lower urinary tract symptoms; E11.9 Type 2 diabetes mellitus without complications; E11.65 Type 2 diabetes mellitus with hyperglycemia; Z79.85 Long-term (current) use of injectable non-insulin antidiabetic drugs; E66.9 Obesity, unspecified; Z68.35 Body mass index [BMI] 35.0-35.9, adult; Z87.891 Personal history of nicotine dependence; Z99.89 Dependence on other enabling machines and devices
CPT/HCPCS: 36415; 80053; 82962; 85027; 86780; 87811; C9803-CS; J0475; U0003; U0005

== ENCOUNTER 2022-08-29 14:52 | Inpatient (IN) | payer OTHER ==
[2022-08-29] MEDS ORDERED: MAG HYDROX/AL HYDROX/SIMETH 30 ML UNIT-DOSE CUP PO PRN (15:37)
[2022-08-29] MEDS ORDERED: ACETAMINOPHEN 325 MG TABLET (FP) PO PRN (15:37)
[2022-08-29] MEDS ORDERED: POLYETHYLENE GLYCOL (HEALTHYLAX) 3350 17 GM PACKET PO PRN (15:37)
[2022-08-29] MEDS ORDERED: P-EPHED 60MG/TRIPROLIDI 2.5MG TABLET PO PRN (15:37)
[2022-08-29] MEDS ORDERED: BENZOCAINE/MENTHOL (CHLORASEPTIC ) LOZENGE MM PRN (15:37)
[2022-08-29] MEDS ORDERED: MAGNESIUM HYDROX 2400MG/30ML ORAL SUSPENSION 30 ML CUP PO PRN (15:37)
[2022-08-29] MEDS ORDERED: LOPERAMIDE HCL 2 MG CAPSULE PO PRN (15:37)
[2022-08-29] MEDS ORDERED: NICOTINE 10 MG CARTRIDGE (INHALER) IH PRN (15:37)
[2022-08-29] MEDS: INSULIN SLIDING SCALE (NOVOLOG) 1 VIAL SQ SCH ×2 (16:39→21:26)
[2022-08-29] MEDS: THIAMINE HCL 100 MG TABLET (FP) PO SCH (21:21)
[2022-08-29] MEDS: hydrOXYzine PAMOATE 25 MG CAPSULE (FP) PO PRN (21:21)
[2022-08-29] MEDS: MELATONIN 5 MG TABLETS PO SCH (21:21)
[2022-08-29] MEDS: PANTOPRAZOLE 40 MG TABLET PO SCH (21:23)
[2022-08-29] MEDS: GABAPENTIN 400 MG CAPSULE PO SCH (21:23)
[2022-08-29] MEDS ORDERED: traZODone HCL 50 MG TABLET (FP) PO SCH (22:00)
[2022-08-30] MEDS: GABAPENTIN 400 MG CAPSULE PO SCH ×3 (06:22→21:29)
[2022-08-30] MEDS: INSULIN SLIDING SCALE (NOVOLOG) 1 VIAL SQ SCH ×4 (06:23→22:41)
[2022-08-30] MEDS ORDERED: INSULIN (NOVOLOG) ASPART 100 UNITS/ML 10ML VIAL ONE ×2 (07:17→12:08)
[2022-08-30] MEDS ORDERED: TAMSULOSIN HCL 0.4 MG CAP PO SCH (10:00)
[2022-08-30] MEDS: PANTOPRAZOLE 40 MG TABLET PO SCH ×2 (10:17→21:29)
[2022-08-30] MEDS: PRENATAL VITAMINS W/ FOLIC ACID TABLET (FP) PO SCH (10:18)
[2022-08-30] MEDS: NICOTINE 7 MG/24 HOURS TOPICAL PATCH TD SCH (10:19)
[2022-08-30] MEDS ORDERED: PATIENT'S OWN MEDICATION (NON-FORMULARY) (Semaglutide [Ozempic] 1 MG/0.75 ML Pen.Injctr) SQ SCH (12:00)
[2022-08-30] MEDS: TAMSULOSIN HCL 0.4 MG CAP PO SCH (12:09)
[2022-08-30] MEDS: CHOLECALCIFEROL (VIT D3) 400 UNIT (10 MCG) TABLET PO SCH (13:06)
[2022-08-30] MEDS: VITAMIN A 10,000 UNITS (3000 MCG) CAPSULE PO SCH (15:07)
[2022-08-30] MEDS ORDERED: MINERAL OIL/PETROLAT/WATER TOPICAL CREAM 113 GM JAR TP PRN (15:35)
[2022-08-30] MEDS: hydrOXYzine PAMOATE 25 MG CAPSULE (FP) PO PRN (21:29)
[2022-08-30] MEDS: METHOCARBAMOL 750 MG TABLET PO PRN (21:30)
[2022-08-30] MEDS: THIAMINE HCL 100 MG TABLET (FP) PO SCH (21:30)
[2022-08-30] MEDS: MELATONIN 5 MG TABLETS PO SCH (21:30)
[2022-08-30] MEDS: traZODone HCL 100 MG TABLET (FP) PO SCH (21:31)
[2022-08-31] MEDS: GABAPENTIN 400 MG CAPSULE PO SCH ×3 (06:29→21:19)
[2022-08-31] MEDS: INSULIN SLIDING SCALE (NOVOLOG) 1 VIAL SQ SCH ×4 (07:22→21:23)
[2022-08-31] MEDS ORDERED: INSULIN (NOVOLOG) ASPART 100 UNITS/ML 10ML VIAL ONE ×2 (07:23→12:03)
[2022-08-31] MEDS: TAMSULOSIN HCL 0.4 MG CAP PO SCH (08:59)
[2022-08-31] MEDS: VITAMIN A 10,000 UNITS (3000 MCG) CAPSULE PO SCH (09:00)
[2022-08-31] MEDS: PANTOPRAZOLE 40 MG TABLET PO SCH ×2 (09:00→21:19)
[2022-08-31] MEDS: NICOTINE 7 MG/24 HOURS TOPICAL PATCH TD SCH (09:00)
[2022-08-31] MEDS: PRENATAL VITAMINS W/ FOLIC ACID TABLET (FP) PO SCH (09:00)
[2022-08-31] MEDS: METHOCARBAMOL 750 MG TABLET PO PRN ×3 (09:01→21:19)
[2022-08-31] MEDS: CHOLECALCIFEROL (VIT D3) 400 UNIT (10 MCG) TABLET PO SCH (09:01)
[2022-08-31] MEDS ORDERED: PATIENT'S OWN MEDICATION (NON-FORMULARY) (Semaglutide [Ozempic] 1 MG) SQ SCH (11:45)
[2022-08-31] MEDS: PATIENT'S OWN MEDICATION (NON-FORMULARY) (Semaglutide [Ozempic] 1 MG) SQ SCH (12:11)
[2022-08-31] MEDS: traZODone HCL 100 MG TABLET (FP) PO SCH (21:19)
[2022-08-31] MEDS: THIAMINE HCL 100 MG TABLET (FP) PO SCH (21:19)
[2022-08-31] MEDS: MELATONIN 5 MG TABLETS PO SCH (21:19)
[2022-09-01] MEDS: GABAPENTIN 400 MG CAPSULE PO SCH ×3 (06:16→21:12)
[2022-09-01] MEDS: METHOCARBAMOL 750 MG TABLET PO PRN ×2 (06:58→21:13)
[2022-09-01] MEDS ORDERED: INSULIN (NOVOLOG) ASPART 100 UNITS/ML 10ML VIAL ONE ×4 (07:00→21:45)
[2022-09-01] MEDS: INSULIN SLIDING SCALE (NOVOLOG) 1 VIAL SQ SCH ×4 (07:02→21:10)
[2022-09-01] MEDS: TAMSULOSIN HCL 0.4 MG CAP PO SCH (09:03)
[2022-09-01] MEDS: NICOTINE 7 MG/24 HOURS TOPICAL PATCH TD SCH (09:04)
[2022-09-01] MEDS: VITAMIN A 10,000 UNITS (3000 MCG) CAPSULE PO SCH (09:04)
[2022-09-01] MEDS: PRENATAL VITAMINS W/ FOLIC ACID TABLET (FP) PO SCH (09:04)
[2022-09-01] MEDS: IBUPROFEN 400 MG TABLET (FP) PO PRN (09:05)
[2022-09-01] MEDS: CHOLECALCIFEROL (VIT D3) 400 UNIT (10 MCG) TABLET PO SCH (09:05)
[2022-09-01] MEDS: PANTOPRAZOLE 40 MG TABLET PO SCH ×2 (09:05→21:12)
[2022-09-01] MEDS: MELATONIN 5 MG TABLETS PO SCH (21:12)
[2022-09-01] MEDS: traZODone HCL 100 MG TABLET (FP) PO SCH (21:12)
[2022-09-01] MEDS: THIAMINE HCL 100 MG TABLET (FP) PO SCH (21:13)
[2022-09-02] MEDS: GABAPENTIN 400 MG CAPSULE PO SCH ×3 (06:28→21:31)
[2022-09-02] MEDS: METHOCARBAMOL 750 MG TABLET PO PRN ×3 (07:34→21:32)
[2022-09-02] MEDS: INSULIN SLIDING SCALE (NOVOLOG) 1 VIAL SQ SCH ×4 (07:36→21:33)
[2022-09-02] MEDS ORDERED: INSULIN (NOVOLOG) ASPART 100 UNITS/ML 10ML VIAL ONE ×2 (08:05→11:53)
[2022-09-02] MEDS: TAMSULOSIN HCL 0.4 MG CAP PO SCH (08:55)
[2022-09-02] MEDS: PANTOPRAZOLE 40 MG TABLET PO SCH ×2 (10:10→21:32)
[2022-09-02] MEDS: PRENATAL VITAMINS W/ FOLIC ACID TABLET (FP) PO SCH (10:10)
[2022-09-02] MEDS: NICOTINE 7 MG/24 HOURS TOPICAL PATCH TD SCH (10:11)
[2022-09-02] MEDS: CHOLECALCIFEROL (VIT D3) 400 UNIT (10 MCG) TABLET PO SCH (10:11)
[2022-09-02] MEDS: VITAMIN A 10,000 UNITS (3000 MCG) CAPSULE PO SCH (10:55)
[2022-09-02] MEDS: hydrOXYzine PAMOATE 25 MG CAPSULE (FP) PO PRN ×2 (14:20→21:32)
[2022-09-02] MEDS: traZODone HCL 100 MG TABLET (FP) PO SCH (21:32)
[2022-09-02] MEDS: THIAMINE HCL 100 MG TABLET (FP) PO SCH (21:32)
[2022-09-02] MEDS: MELATONIN 5 MG TABLETS PO SCH (21:33)
[2022-09-03] MEDS: GABAPENTIN 400 MG CAPSULE PO SCH ×3 (06:46→21:14)
[2022-09-03] MEDS: hydrOXYzine PAMOATE 25 MG CAPSULE (FP) PO PRN ×2 (06:47→21:14)
[2022-09-03] MEDS: METHOCARBAMOL 750 MG TABLET PO PRN ×3 (06:47→21:14)
[2022-09-03] MEDS: INSULIN SLIDING SCALE (NOVOLOG) 1 VIAL SQ SCH ×4 (08:04→21:15)
[2022-09-03] MEDS ORDERED: INSULIN (NOVOLOG) ASPART 100 UNITS/ML 10ML VIAL ONE ×2 (08:11→11:51)
[2022-09-03] MEDS: TAMSULOSIN HCL 0.4 MG CAP PO SCH (08:50)
[2022-09-03] MEDS: NICOTINE 7 MG/24 HOURS TOPICAL PATCH TD SCH (10:05)
[2022-09-03] MEDS: PRENATAL VITAMINS W/ FOLIC ACID TABLET (FP) PO SCH (10:05)
[2022-09-03] MEDS: PANTOPRAZOLE 40 MG TABLET PO SCH ×2 (10:05→21:14)
[2022-09-03] MEDS: CHOLECALCIFEROL (VIT D3) 400 UNIT (10 MCG) TABLET PO SCH (10:05)
[2022-09-03] MEDS: VITAMIN A 10,000 UNITS (3000 MCG) CAPSULE PO SCH (11:45)
[2022-09-03] MEDS: ARTIFICIAL TEARS (POLYVINYL ALCOHOL) OPTH DROPS OU PRN (13:56)
[2022-09-03] MEDS: guaiFENesin 200 MG/10 ML 10 ML UNIT-DOSE CUPS PO PRN (18:24)
[2022-09-03] MEDS: traZODone HCL 100 MG TABLET (FP) PO SCH (21:14)
[2022-09-03] MEDS: THIAMINE HCL 100 MG TABLET (FP) PO SCH (21:14)
[2022-09-03] MEDS: MELATONIN 5 MG TABLETS PO SCH (21:14)
[2022-09-04] MEDS: GABAPENTIN 400 MG CAPSULE PO SCH ×3 (06:46→21:23)
[2022-09-04] MEDS: METHOCARBAMOL 750 MG TABLET PO PRN ×3 (06:46→21:23)
[2022-09-04] MEDS: hydrOXYzine PAMOATE 25 MG CAPSULE (FP) PO PRN ×2 (06:46→21:22)
[2022-09-04] MEDS: INSULIN SLIDING SCALE (NOVOLOG) 1 VIAL SQ SCH ×4 (08:02→21:24)
[2022-09-04] MEDS: IBUPROFEN 400 MG TABLET (FP) PO PRN ×2 (08:03→14:08)
[2022-09-04] MEDS: TAMSULOSIN HCL 0.4 MG CAP PO SCH (08:52)
[2022-09-04] MEDS: PANTOPRAZOLE 40 MG TABLET PO SCH ×2 (09:29→21:24)
[2022-09-04] MEDS: CHOLECALCIFEROL (VIT D3) 400 UNIT (10 MCG) TABLET PO SCH (09:29)
[2022-09-04] MEDS: VITAMIN A 10,000 UNITS (3000 MCG) CAPSULE PO SCH (09:30)
[2022-09-04] MEDS: NICOTINE 7 MG/24 HOURS TOPICAL PATCH TD SCH (09:30)
[2022-09-04] MEDS: PRENATAL VITAMINS W/ FOLIC ACID TABLET (FP) PO SCH (09:30)
[2022-09-04] MEDS ORDERED: INSULIN (NOVOLOG) ASPART 100 UNITS/ML 10ML VIAL ONE (11:45)
[2022-09-04] MEDS: THIAMINE HCL 100 MG TABLET (FP) PO SCH (21:22)
[2022-09-04] MEDS: MELATONIN 5 MG TABLETS PO SCH (21:24)
[2022-09-04] MEDS: traZODone HCL 100 MG TABLET (FP) PO SCH (21:24)
[2022-09-05] MEDS: guaiFENesin 200 MG/10 ML 10 ML UNIT-DOSE CUPS PO PRN (01:59)
[2022-09-05] MEDS: GABAPENTIN 400 MG CAPSULE PO SCH ×3 (06:13→21:17)
[2022-09-05] MEDS: METHOCARBAMOL 750 MG TABLET PO PRN ×3 (06:14→21:21)
[2022-09-05] MEDS: hydrOXYzine PAMOATE 25 MG CAPSULE (FP) PO PRN ×2 (06:14→21:21)
[2022-09-05] MEDS: INSULIN SLIDING SCALE (NOVOLOG) 1 VIAL SQ SCH ×4 (06:15→21:19)
[2022-09-05] MEDS ORDERED: INSULIN (NOVOLOG) ASPART 100 UNITS/ML 10ML VIAL ONE ×3 (07:32→16:35)
[2022-09-05] MEDS: TAMSULOSIN HCL 0.4 MG CAP PO SCH (09:30)
[2022-09-05] MEDS: VITAMIN A 10,000 UNITS (3000 MCG) CAPSULE PO SCH (10:03)
[2022-09-05] MEDS: PRENATAL VITAMINS W/ FOLIC ACID TABLET (FP) PO SCH (10:04)
[2022-09-05] MEDS: PANTOPRAZOLE 40 MG TABLET PO SCH ×2 (10:04→21:18)
[2022-09-05] MEDS: NICOTINE 7 MG/24 HOURS TOPICAL PATCH TD SCH (10:04)
[2022-09-05] MEDS: CHOLECALCIFEROL (VIT D3) 400 UNIT (10 MCG) TABLET PO SCH (10:06)
[2022-09-05] MEDS: amLODIPine BESYLATE 10 MG TABLET (FP) PO SCH (15:52)
[2022-09-05] MEDS: THIAMINE HCL 100 MG TABLET (FP) PO SCH (21:18)
[2022-09-05] MEDS: traZODone HCL 100 MG TABLET (FP) PO SCH (21:18)
[2022-09-05] MEDS: MELATONIN 5 MG TABLETS PO SCH (21:20)
[2022-09-06] MEDS: GABAPENTIN 400 MG CAPSULE PO SCH ×3 (06:10→21:17)
[2022-09-06] MEDS: INSULIN SLIDING SCALE (NOVOLOG) 1 VIAL SQ SCH ×4 (06:10→21:15)
[2022-09-06] MEDS: METHOCARBAMOL 750 MG TABLET PO PRN ×3 (06:10→21:19)
[2022-09-06] MEDS: hydrOXYzine PAMOATE 25 MG CAPSULE (FP) PO PRN ×2 (06:10→21:19)
[2022-09-06 06:46] VITALS: RESP 20
[2022-09-06] MEDS ORDERED: INSULIN (NOVOLOG) ASPART 100 UNITS/ML 10ML VIAL ONE ×2 (07:06→12:01)
[2022-09-06] MEDS: TAMSULOSIN HCL 0.4 MG CAP PO SCH (08:45)
[2022-09-06] MEDS: PANTOPRAZOLE 40 MG TABLET PO SCH ×2 (10:17→21:17)
[2022-09-06] MEDS: VITAMIN A 10,000 UNITS (3000 MCG) CAPSULE PO SCH (10:17)
[2022-09-06] MEDS: amLODIPine BESYLATE 10 MG TABLET (FP) PO SCH (10:17)
[2022-09-06] MEDS: NICOTINE 7 MG/24 HOURS TOPICAL PATCH TD SCH (10:18)
[2022-09-06] MEDS: PRENATAL VITAMINS W/ FOLIC ACID TABLET (FP) PO SCH (10:18)
[2022-09-06] MEDS: IBUPROFEN 400 MG TABLET (FP) PO PRN (10:19)
[2022-09-06] MEDS: CHOLECALCIFEROL (VIT D3) 400 UNIT (10 MCG) TABLET PO SCH (10:39)
[2022-09-06] MEDS: traZODone HCL 100 MG TABLET (FP) PO SCH (21:17)
[2022-09-06] MEDS: THIAMINE HCL 100 MG TABLET (FP) PO SCH (21:17)
[2022-09-06] MEDS: MELATONIN 5 MG TABLETS PO SCH (21:17)
[2022-09-06] MEDS: ARTIFICIAL TEARS (POLYVINYL ALCOHOL) OPTH DROPS OU PRN (21:20)
[2022-09-07] MEDS: METHOCARBAMOL 750 MG TABLET PO PRN ×3 (06:20→21:18)
[2022-09-07] MEDS: hydrOXYzine PAMOATE 25 MG CAPSULE (FP) PO PRN ×2 (06:20→21:18)
[2022-09-07] MEDS: GABAPENTIN 400 MG CAPSULE PO SCH ×3 (06:20→21:15)
[2022-09-07] MEDS: INSULIN SLIDING SCALE (NOVOLOG) 1 VIAL SQ SCH ×4 (06:21→21:56)
[2022-09-07] MEDS ORDERED: INSULIN (NOVOLOG) ASPART 100 UNITS/ML 10ML VIAL ONE ×2 (07:05→11:51)
[2022-09-07] MEDS: TAMSULOSIN HCL 0.4 MG CAP PO SCH (09:05)
[2022-09-07] MEDS: ARTIFICIAL TEARS (POLYVINYL ALCOHOL) OPTH DROPS OU PRN (10:12)
[2022-09-07] MEDS: VITAMIN A 10,000 UNITS (3000 MCG) CAPSULE PO SCH (10:13)
[2022-09-07] MEDS: amLODIPine BESYLATE 10 MG TABLET (FP) PO SCH (10:13)
[2022-09-07] MEDS: PANTOPRAZOLE 40 MG TABLET PO SCH ×2 (10:13→21:15)
[2022-09-07] MEDS: CHOLECALCIFEROL (VIT D3) 400 UNIT (10 MCG) TABLET PO SCH (10:13)
[2022-09-07] MEDS: NICOTINE 7 MG/24 HOURS TOPICAL PATCH TD SCH (10:14)
[2022-09-07] MEDS: PRENATAL VITAMINS W/ FOLIC ACID TABLET (FP) PO SCH (10:14)
[2022-09-07] MEDS: IBUPROFEN 400 MG TABLET (FP) PO PRN (10:15)
[2022-09-07] MEDS: PATIENT'S OWN MEDICATION (NON-FORMULARY) (Semaglutide [Ozempic] 1 MG) SQ SCH (11:52)
[2022-09-07] MEDS: THIAMINE HCL 100 MG TABLET (FP) PO SCH (21:15)
[2022-09-07] MEDS: MELATONIN 5 MG TABLETS PO SCH (21:15)
[2022-09-07] MEDS: traZODone HCL 100 MG TABLET (FP) PO SCH (21:15)
[2022-09-08] MEDS: hydrOXYzine PAMOATE 25 MG CAPSULE (FP) PO PRN (06:29)
[2022-09-08] MEDS: GABAPENTIN 400 MG CAPSULE PO SCH (06:29)
[2022-09-08] MEDS: METHOCARBAMOL 750 MG TABLET PO PRN (06:29)
[2022-09-08] MEDS: INSULIN SLIDING SCALE (NOVOLOG) 1 VIAL SQ SCH (06:29)
[2022-09-08 06:45] VITALS: TEMP 97.3
[2022-09-08] MEDS ORDERED: INSULIN (NOVOLOG) ASPART 100 UNITS/ML 10ML VIAL ONE (07:09)
[2022-09-08 09:21] VITALS: BP 119/81; PULSE 116
[2022-09-08] MEDS: CHOLECALCIFEROL (VIT D3) 400 UNIT (10 MCG) TABLET PO SCH (09:21)
[2022-09-08] MEDS: TAMSULOSIN HCL 0.4 MG CAP PO SCH (09:21)
[2022-09-08] MEDS: PANTOPRAZOLE 40 MG TABLET PO SCH (09:21)
[2022-09-08] MEDS: NICOTINE 7 MG/24 HOURS TOPICAL PATCH TD SCH (09:21)
[2022-09-08] MEDS: amLODIPine BESYLATE 10 MG TABLET (FP) PO SCH (09:21)
[2022-09-08] MEDS: VITAMIN A 10,000 UNITS (3000 MCG) CAPSULE PO SCH (09:21)
[2022-09-08] MEDS: PRENATAL VITAMINS W/ FOLIC ACID TABLET (FP) PO SCH (09:22)
== END 2022-09-08 09:30 | disposition home or self-care (01) | DRG 895 ==
LOC: YASAS 14:52 → Y3E 14:53
PROVIDERS: ADMIT Allergy & Immunology; ATTEND Allergy & Immunology
PROC: HZ42ZZZ Group Counseling for Substance Abuse Treatment, Cognitive-Behavioral (ICD-10-PCS; principal; 2022-08-29)
DX: F10.20 Alcohol dependence, uncomplicated (principal); F10.282 Alcohol dependence with alcohol-induced sleep disorder; F32.A Depression, unspecified; I10 Essential (primary) hypertension; J45.909 Unspecified asthma, uncomplicated; E11.9 Type 2 diabetes mellitus without complications; Z79.4 Long term (current) use of insulin; Z79.85 Long-term (current) use of injectable non-insulin antidiabetic drugs; M54.50 Low back pain, unspecified; G89.29 Other chronic pain; N40.0 Benign prostatic hyperplasia without lower urinary tract symptoms; E66.9 Obesity, unspecified; Z68.37 Body mass index [BMI] 37.0-37.9, adult; Z99.89 Dependence on other enabling machines and devices
CPT/HCPCS: 82962

== ENCOUNTER 2022-10-18 09:53 | Inpatient (IN) | payer OTHER ==
[2022-10-18 10:36] VITALS: BMI 36.9
[2022-10-18] MEDS ORDERED: ACETAMINOPHEN 325 MG TABLET (FP) PO PRN (10:51)
[2022-10-18] MEDS ORDERED: guaiFENesin 600 MG TABLET.ER (FP) PO PRN (10:51)
[2022-10-18] MEDS ORDERED: chlordiazePOXIDE HCL 25 MG CAPSULE PO PRN (10:51)
[2022-10-18] MEDS ORDERED: LOPERAMIDE HCL 2 MG CAPSULE PO PRN (10:51)
[2022-10-18] MEDS ORDERED: BENZONATATE 200 MG CAPSULE PO PRN (10:51)
[2022-10-18] MEDS ORDERED: MAG HYDROX/AL HYDROX/SIMETH 30 ML UNIT-DOSE CUP PO PRN (10:51)
[2022-10-18] MEDS ORDERED: MAGNESIUM HYDROX 2400MG/30ML ORAL SUSPENSION 30 ML CUP PO PRN (10:51)
[2022-10-18] MEDS ORDERED: ONDANSETRON *ODT* 4 MG TABLET SL PRN (10:51)
[2022-10-18] MEDS ORDERED: POLYETHYLENE GLYCOL (HEALTHYLAX) 3350 17 GM PACKET PO PRN (10:51)
[2022-10-18] MEDS ORDERED: BENZOCAINE/MENTHOL (CHLORASEPTIC ) LOZENGE MM PRN (10:51)
[2022-10-18] MEDS ORDERED: BISMUTH SUBSALICYLATE 262 MG/15 ML BTL PO PRN (10:51)
[2022-10-18] MEDS ORDERED: ALBUTEROL SO4 HFA INHALER IH PRN (12:08)
[2022-10-18] MEDS ORDERED: ALBUTEROL SO4 0.083% IH SOL 2.5 MG/3 ML VIAL.NEB. NEB PRN (12:09)
[2022-10-18] MEDS ORDERED: INSULIN (NOVOLOG) ASPART 100 UNITS/ML 10ML VIAL SQ ONE (12:51)
[2022-10-18] MEDS ORDERED: INSULIN (NOVOLOG) ASPART 100 UNITS/ML 10ML VIAL ONE (12:52)
[2022-10-18] MEDS ORDERED: chlordiazePOXIDE HCL 25 MG CAPSULE ONE (12:56)
[2022-10-18] MEDS: AMMONIUM LACTATE 12% LOTION 225 GM BOTTLE TP SCH ×2 (13:05→22:21)
[2022-10-18 14:30] LABS: HEMATOCRIT 40.2 % (35.4-49); HEMOGLOBIN 13.3 GM/dL (11.7-16.9); MCH 26.1 pg (25.7-33.7); MCHC 33.1 g/dl (32.0-35.9); MEAN CELL VOLUME 78.6 fl (80-96); MEAN PLT VOLUME 8.4 fl (7.5-11.1); PLATELET COUNT 268 10^3/uL (134-434); RBC 5.11 M/mm3 (4.00-5.60); RDW 15.9 % (11.9-15.9)
[2022-10-18 14:44] LABS: CALCIUM 8.7 mg/dL (8.5-10.1)
[2022-10-18 14:45] LABS: ALBUMIN 3.6 g/dl (3.4-5.0); BLOOD UREA NITROGEN 14.3 mg/dL (7-18)
[2022-10-18 14:48] LABS: CREATININE 1.1 mg/dL (0.55-1.3)
[2022-10-18 14:49] LABS: BILIRUBIN,TOTAL 0.5 mg/dL (0.2-1)
[2022-10-18] MEDS: INSULIN SLIDING SCALE (NOVOLOG) 1 VIAL SQ SCH ×2 (16:50→22:20)
[2022-10-18] MEDS: chlordiazePOXIDE HCL 25 MG CAPSULE PO SCH ×2 (17:32→22:18)
[2022-10-18] MEDS: hydrOXYzine PAMOATE 25 MG CAPSULE (FP) PO PRN (18:25)
[2022-10-18] MEDS: MELATONIN 5 MG TABLETS PO SCH (22:18)
[2022-10-18] MEDS: THIAMINE HCL 100 MG TABLET (FP) PO SCH (22:19)
[2022-10-19] MEDS: chlordiazePOXIDE HCL 25 MG CAPSULE PO SCH ×4 (05:45→22:06)
[2022-10-19] MEDS: hydrOXYzine PAMOATE 25 MG CAPSULE (FP) PO PRN (05:47)
[2022-10-19] MEDS: INSULIN SLIDING SCALE (NOVOLOG) 1 VIAL SQ SCH ×4 (06:12→22:08)
[2022-10-19] MEDS ORDERED: INSULIN SLIDING SCALE (NOVOLOG) 1 VIAL SQ ONE (06:18)
[2022-10-19] MEDS: TAMSULOSIN HCL 0.4 MG CAP PO SCH (08:40)
[2022-10-19] MEDS: PRENATAL VITAMINS W/ FOLIC ACID TABLET (FP) PO SCH (10:24)
[2022-10-19] MEDS: AMMONIUM LACTATE 12% LOTION 225 GM BOTTLE TP SCH ×2 (10:26→22:07)
[2022-10-19] MEDS: LIDOCAINE 5% TOPICAL PATCH TP SCH (12:55)
[2022-10-19] MEDS: LOSARTAN POTASSIUM 25 MG TABLET PO SCH (13:05)
[2022-10-19] MEDS ORDERED: METHOCARBAMOL 500 MG TABLET PO ONE (18:00)
[2022-10-19] MEDS: amLODIPine BESYLATE 10 MG TABLET (FP) PO SCH (19:09)
[2022-10-19] MEDS ORDERED: LIDOCAINE PATCH REMOVAL MC SCH (22:00)
[2022-10-19] MEDS: GABAPENTIN 300 MG CAPSULE PO SCH (22:06)
[2022-10-19] MEDS: THIAMINE HCL 100 MG TABLET (FP) PO SCH (22:06)
[2022-10-19] MEDS: traZODone HCL 50 MG TABLET (FP) PO SCH (22:06)
[2022-10-19] MEDS: BACLOFEN 10 MG TABLET (FP) PO PRN (22:06)
[2022-10-19] MEDS: MELATONIN 5 MG TABLETS PO SCH (22:06)
[2022-10-19] MEDS: CEPHALEXIN MONOHYDRATE 500 MG CAPSULE (UD) PO SCH (23:23)
[2022-10-20] MEDS: chlordiazePOXIDE HCL 25 MG CAPSULE PO SCH ×4 (05:40→22:34)
[2022-10-20] MEDS: GABAPENTIN 300 MG CAPSULE PO SCH ×3 (05:41→22:33)
[2022-10-20] MEDS: CEPHALEXIN MONOHYDRATE 500 MG CAPSULE (UD) PO SCH ×4 (05:41→23:16)
[2022-10-20] MEDS: BACLOFEN 10 MG TABLET (FP) PO PRN ×2 (05:48→14:03)
[2022-10-20] MEDS: INSULIN SLIDING SCALE (NOVOLOG) 1 VIAL SQ SCH ×4 (06:22→22:33)
[2022-10-20] MEDS ORDERED: INSULIN SLIDING SCALE (NOVOLOG) 1 VIAL SQ ONE (06:24)
[2022-10-20] MEDS: TAMSULOSIN HCL 0.4 MG CAP PO SCH (08:50)
[2022-10-20] MEDS: PRENATAL VITAMINS W/ FOLIC ACID TABLET (FP) PO SCH (10:54)
[2022-10-20] MEDS: LIDOCAINE 5% TOPICAL PATCH TP SCH (10:56)
[2022-10-20] MEDS: amLODIPine BESYLATE 10 MG TABLET (FP) PO SCH (10:56)
[2022-10-20] MEDS: LOSARTAN POTASSIUM 25 MG TABLET PO SCH (10:56)
[2022-10-20] MEDS: AMMONIUM LACTATE 12% LOTION 225 GM BOTTLE TP SCH ×2 (11:00→22:34)
[2022-10-20] MEDS: IBUPROFEN 600 MG TABLET (FP) PO PRN (19:01)
[2022-10-20] MEDS: traZODone HCL 50 MG TABLET (FP) PO SCH (22:33)
[2022-10-20] MEDS: MELATONIN 5 MG TABLETS PO SCH (22:33)
[2022-10-20] MEDS: THIAMINE HCL 100 MG TABLET (FP) PO SCH (22:33)
[2022-10-21] MEDS ORDERED: chlordiazePOXIDE HCL 10 MG CAPSULE PO PRN
[2022-10-21] MEDS: chlordiazePOXIDE HCL 10 MG CAPSULE PO SCH ×4 (05:50→22:24)
[2022-10-21] MEDS: CEPHALEXIN MONOHYDRATE 500 MG CAPSULE (UD) PO SCH ×3 (05:50→17:18)
[2022-10-21] MEDS: IBUPROFEN 600 MG TABLET (FP) PO PRN (05:51)
[2022-10-21] MEDS: BACLOFEN 10 MG TABLET (FP) PO PRN (05:51)
[2022-10-21] MEDS: GABAPENTIN 300 MG CAPSULE PO SCH ×3 (05:51→22:22)
[2022-10-21] MEDS: INSULIN SLIDING SCALE (NOVOLOG) 1 VIAL SQ SCH ×4 (06:06→21:38)
[2022-10-21] MEDS: TAMSULOSIN HCL 0.4 MG CAP PO SCH (09:01)
[2022-10-21] MEDS: amLODIPine BESYLATE 10 MG TABLET (FP) PO SCH (10:36)
[2022-10-21] MEDS: LOSARTAN POTASSIUM 25 MG TABLET PO SCH (10:36)
[2022-10-21] MEDS: PRENATAL VITAMINS W/ FOLIC ACID TABLET (FP) PO SCH (10:36)
[2022-10-21] MEDS: LIDOCAINE 5% TOPICAL PATCH TP SCH (10:36)
[2022-10-21] MEDS: AMMONIUM LACTATE 12% LOTION 225 GM BOTTLE TP SCH ×2 (10:37→23:01)
[2022-10-21] MEDS: hydrOXYzine PAMOATE 25 MG CAPSULE (FP) PO PRN (17:21)
[2022-10-21 21:12] VITALS: RESP 18
[2022-10-21] MEDS: THIAMINE HCL 100 MG TABLET (FP) PO SCH (22:21)
[2022-10-21] MEDS: MELATONIN 5 MG TABLETS PO SCH (22:22)
[2022-10-21] MEDS: traZODone HCL 50 MG TABLET (FP) PO SCH (22:24)
[2022-10-22] MEDS: CEPHALEXIN MONOHYDRATE 500 MG CAPSULE (UD) PO SCH ×4 (01:05→17:28)
[2022-10-22] MEDS: GABAPENTIN 300 MG CAPSULE PO SCH ×3 (05:53→22:25)
[2022-10-22] MEDS: chlordiazePOXIDE HCL 10 MG CAPSULE PO SCH ×2 (05:53→17:27)
[2022-10-22] MEDS: BACLOFEN 10 MG TABLET (FP) PO PRN ×2 (05:55→22:24)
[2022-10-22] MEDS: IBUPROFEN 400 MG TABLET (FP) PO PRN (05:55)
[2022-10-22] MEDS ORDERED: INSULIN SLIDING SCALE (NOVOLOG) 1 VIAL SQ ONE (06:20)
[2022-10-22] MEDS: INSULIN SLIDING SCALE (NOVOLOG) 1 VIAL SQ SCH ×4 (06:20→21:36)
[2022-10-22] MEDS: PRENATAL VITAMINS W/ FOLIC ACID TABLET (FP) PO SCH (10:37)
[2022-10-22] MEDS: LOSARTAN POTASSIUM 25 MG TABLET PO SCH (10:38)
[2022-10-22] MEDS: amLODIPine BESYLATE 10 MG TABLET (FP) PO SCH (10:38)
[2022-10-22] MEDS: TAMSULOSIN HCL 0.4 MG CAP PO SCH (10:38)
[2022-10-22] MEDS: LIDOCAINE 5% TOPICAL PATCH TP SCH (10:39)
[2022-10-22] MEDS: hydrOXYzine PAMOATE 25 MG CAPSULE (FP) PO PRN ×2 (10:42→22:25)
[2022-10-22] MEDS: AMMONIUM LACTATE 12% LOTION 225 GM BOTTLE TP SCH ×2 (11:27→22:28)
[2022-10-22] MEDS: MELATONIN 5 MG TABLETS PO SCH (22:23)
[2022-10-22] MEDS: THIAMINE HCL 100 MG TABLET (FP) PO SCH (22:23)
[2022-10-22] MEDS: traZODone HCL 50 MG TABLET (FP) PO SCH (22:24)
[2022-10-23] MEDS: CEPHALEXIN MONOHYDRATE 500 MG CAPSULE (UD) PO SCH ×3 (00:41→11:53)
[2022-10-23] MEDS ORDERED: chlordiazePOXIDE HCL 10 MG CAPSULE PO ONE (05:00)
[2022-10-23] MEDS: BACLOFEN 10 MG TABLET (FP) PO PRN (05:52)
[2022-10-23] MEDS: GABAPENTIN 300 MG CAPSULE PO SCH ×2 (05:53→13:04)
[2022-10-23] MEDS: hydrOXYzine PAMOATE 25 MG CAPSULE (FP) PO PRN (05:53)
[2022-10-23] MEDS: IBUPROFEN 400 MG TABLET (FP) PO PRN (05:54)
[2022-10-23] MEDS: INSULIN SLIDING SCALE (NOVOLOG) 1 VIAL SQ SCH ×2 (06:39→11:46)
[2022-10-23 09:06] VITALS: BP 110/68; PULSE 72; TEMP 98.1
[2022-10-23] MEDS: LOSARTAN POTASSIUM 25 MG TABLET PO SCH (09:21)
[2022-10-23] MEDS: PRENATAL VITAMINS W/ FOLIC ACID TABLET (FP) PO SCH (09:21)
[2022-10-23] MEDS: LIDOCAINE 5% TOPICAL PATCH TP SCH (09:22)
[2022-10-23] MEDS: amLODIPine BESYLATE 10 MG TABLET (FP) PO SCH (09:22)
[2022-10-23] MEDS: TAMSULOSIN HCL 0.4 MG CAP PO SCH (09:22)
[2022-10-23] MEDS: AMMONIUM LACTATE 12% LOTION 225 GM BOTTLE TP SCH (11:42)
== END 2022-10-23 13:23 | disposition other institution (70) | DRG 897 ==
LOC: YASAS 09:53 → Y3N 12:47
PROVIDERS: ADMIT Allergy & Immunology; ATTEND Surgery
PROC: HZ2ZZZZ Detoxification Services for Substance Abuse Treatment (ICD-10-PCS; principal; 2022-10-18)
DX: F10.230 Alcohol dependence with withdrawal, uncomplicated (principal); L02.31 Cutaneous abscess of buttock; F12.20 Cannabis dependence, uncomplicated; I10 Essential (primary) hypertension; K21.9 Gastro-esophageal reflux disease without esophagitis; J45.909 Unspecified asthma, uncomplicated; N40.0 Benign prostatic hyperplasia without lower urinary tract symptoms; E11.65 Type 2 diabetes mellitus with hyperglycemia; Z79.84 Long term (current) use of oral hypoglycemic drugs; E66.9 Obesity, unspecified; Z68.36 Body mass index [BMI] 36.0-36.9, adult; Z87.891 Personal history of nicotine dependence; Z99.89 Dependence on other enabling machines and devices
CPT/HCPCS: 36415; 80053; 82140; 82962; 85027; 86780; 87811; C9803-CS; J0475; U0003; U0005

== ENCOUNTER 2022-10-23 13:37 | Inpatient (IN) | payer OTHER ==
[2022-10-23] MEDS ORDERED: AMMONIUM LACTATE 12% LOTION 225 GM BOTTLE TP PRN (14:43)
[2022-10-23] MEDS ORDERED: guaiFENesin 600 MG TABLET.ER (FP) PO PRN (14:43)
[2022-10-23] MEDS ORDERED: COLLOIDAL OATMEAL 1 BAR EACH TP PRN (14:43)
[2022-10-23] MEDS ORDERED: BENZOCAINE/MENTHOL (CHLORASEPTIC ) LOZENGE MM PRN (14:43)
[2022-10-23] MEDS ORDERED: NALOXONE HCL (KLOXXADO) 8 MG SPRAY NS PRN (14:43)
[2022-10-23] MEDS ORDERED: BENZONATATE 200 MG CAPSULE PO PRN (14:43)
[2022-10-23] MEDS ORDERED: POLYETHYLENE GLYCOL (HEALTHYLAX) 3350 17 GM PACKET PO PRN (14:43)
[2022-10-23] MEDS ORDERED: LOPERAMIDE HCL 2 MG CAPSULE PO PRN (14:43)
[2022-10-23] MEDS ORDERED: NICOTINE 10 MG CARTRIDGE (INHALER) IH PRN (14:43)
[2022-10-23] MEDS ORDERED: NALOXONE HCL 0.4 MG/ML VIAL IVPUSH PRN (14:43)
[2022-10-23] MEDS ORDERED: MAGNESIUM HYDROX 2400MG/30ML ORAL SUSPENSION 30 ML CUP PO PRN (14:43)
[2022-10-23] MEDS ORDERED: PATIENT'S OWN MEDICATION (NON-FORMULARY) (Semaglutide [Ozempic] 2 MG/0.75 ML Pen.Injctr) SQ SCH (14:45)
[2022-10-23] MEDS ORDERED: NICOTINE 14 MG/24 HOURS TOPICAL PATCH TD SCH (14:45)
[2022-10-23] MEDS: PRENATAL VITAMINS W/ FOLIC ACID TABLET (FP) PO SCH (15:24)
[2022-10-23] MEDS: INSULIN SLIDING SCALE (NOVOLOG) 1 VIAL SQ SCH (16:28)
[2022-10-23] MEDS: THIAMINE HCL 100 MG TABLET (FP) PO SCH (21:47)
[2022-10-23] MEDS: MELATONIN 5 MG TABLETS PO SCH (21:47)
[2022-10-23] MEDS: GABAPENTIN 400 MG CAPSULE PO SCH (21:49)
[2022-10-23] MEDS: METHOCARBAMOL 500 MG TABLET PO PRN (21:49)
[2022-10-23] MEDS ORDERED: PATIENT'S OWN MEDICATION (NON-FORMULARY) (Trazodone Hcl [Trazodone Hcl] 150 MG Tablet) PO SCH (22:00)
[2022-10-23] MEDS ORDERED: TRAZODONE HCL 150 MG PO SCH (22:00)
[2022-10-23] MEDS ORDERED: PATIENT'S OWN MEDICATION (NON-FORMULARY) (Gabapentin [Neurontin] 600 MG Tablet) PO SCH (22:00)
[2022-10-23] MEDS ORDERED: traZODone HCL 100 MG TABLET (FP) PO SCH (22:00)
[2022-10-23] MEDS: NAPROXEN 500 MG TABLET PO SCH (22:21)
[2022-10-24] MEDS: GABAPENTIN 400 MG CAPSULE PO SCH ×3 (06:23→21:37)
[2022-10-24] MEDS ORDERED: INSULIN (NOVOLOG) ASPART 100 UNITS/ML 10ML VIAL SQ ONE (06:33)
[2022-10-24] MEDS: sitaGLIPtin PHOSPHATE 50 MG TABLET PO SCH (06:39)
[2022-10-24] MEDS: INSULIN SLIDING SCALE (NOVOLOG) 1 VIAL SQ SCH ×3 (06:41→16:49)
[2022-10-24] MEDS ORDERED: DULoxetine HCL 60 MG CAPSULE.DR PO SCH (10:00)
[2022-10-24] MEDS ORDERED: PATIENT'S OWN MEDICATION (NON-FORMULARY) (Meloxicam [Meloxicam] 7.5 MG Tablet) PO SCH (10:00)
[2022-10-24] MEDS: TAMSULOSIN HCL 0.4 MG CAP PO SCH (10:11)
[2022-10-24] MEDS: PRENATAL VITAMINS W/ FOLIC ACID TABLET (FP) PO SCH (10:11)
[2022-10-24] MEDS: LOSARTAN POTASSIUM 25 MG TABLET PO SCH (10:11)
[2022-10-24] MEDS ORDERED: [UNRECOGNIZED DRUG - OTHER] SQ SCH (11:45)
[2022-10-24] MEDS ORDERED: PANTOPRAZOLE 40 MG TABLET PO SCH (12:00)
[2022-10-24] MEDS: NAPROXEN 500 MG TABLET PO SCH ×2 (12:18→21:37)
[2022-10-24] MEDS ORDERED: SEMAGLUTIDE SQ SCH (13:00)
[2022-10-24] MEDS: PANTOPRAZOLE 20 MG TABLET PO SCH ×2 (13:30→21:38)
[2022-10-24] MEDS ORDERED: PATIENT'S OWN MEDICATION (NON-FORMULARY) (Semaglutide [Ozempic] 1 MG) SQ SCH (15:15)
[2022-10-24] MEDS: MAG HYDROX/AL HYDROX/SIMETH 30 ML UNIT-DOSE CUP PO PRN ×2 (15:45→21:46)
[2022-10-24] MEDS ORDERED: traZODone HCL 50 MG TABLET (FP) ONE (20:31)
[2022-10-24] MEDS: THIAMINE HCL 100 MG TABLET (FP) PO SCH (21:37)
[2022-10-24] MEDS: traZODone HCL 100 MG TABLET (FP) PO SCH (21:38)
[2022-10-24] MEDS: MELATONIN 5 MG TABLETS PO SCH (21:38)
[2022-10-24] MEDS: METHOCARBAMOL 500 MG TABLET PO PRN (21:40)
[2022-10-25] MEDS: GABAPENTIN 400 MG CAPSULE PO SCH ×3 (05:59→21:17)
[2022-10-25] MEDS: INSULIN SLIDING SCALE (NOVOLOG) 1 VIAL SQ SCH ×3 (06:00→16:52)
[2022-10-25] MEDS: sitaGLIPtin PHOSPHATE 50 MG TABLET PO SCH (06:00)
[2022-10-25] MEDS: METHOCARBAMOL 500 MG TABLET PO PRN ×2 (06:05→21:17)
[2022-10-25] MEDS: hydrOXYzine PAMOATE 25 MG CAPSULE (FP) PO PRN ×2 (06:05→21:18)
[2022-10-25] MEDS: PRENATAL VITAMINS W/ FOLIC ACID TABLET (FP) PO SCH (09:59)
[2022-10-25] MEDS: NAPROXEN 500 MG TABLET PO SCH ×2 (09:59→21:17)
[2022-10-25] MEDS: TAMSULOSIN HCL 0.4 MG CAP PO SCH (09:59)
[2022-10-25] MEDS: PANTOPRAZOLE 20 MG TABLET PO SCH ×2 (09:59→21:17)
[2022-10-25] MEDS: LOSARTAN POTASSIUM 25 MG TABLET PO SCH (09:59)
[2022-10-25] MEDS: CEPHALEXIN MONOHYDRATE 500 MG CAPSULE (UD) PO SCH ×2 (11:34→17:29)
[2022-10-25] MEDS: amLODIPine BESYLATE 10 MG TABLET (FP) PO SCH (11:34)
[2022-10-25] MEDS: PATIENT'S OWN MEDICATION (NON-FORMULARY) (Semaglutide [Ozempic] 1 MG) SQ SCH (13:51)
[2022-10-25] MEDS ORDERED: traZODone HCL 50 MG TABLET (FP) ONE (19:19)
[2022-10-25] MEDS: THIAMINE HCL 100 MG TABLET (FP) PO SCH (21:17)
[2022-10-25] MEDS: traZODone HCL 100 MG TABLET (FP) PO SCH (21:17)
[2022-10-25] MEDS: MELATONIN 5 MG TABLETS PO SCH (21:17)
[2022-10-25] MEDS: ACETAMINOPHEN 325 MG TABLET (FP) PO PRN (21:18)
[2022-10-26] MEDS: CEPHALEXIN MONOHYDRATE 500 MG CAPSULE (UD) PO SCH ×4 (00:30→17:03)
[2022-10-26] MEDS: MAG HYDROX/AL HYDROX/SIMETH 30 ML UNIT-DOSE CUP PO PRN ×2 (03:25→15:58)
[2022-10-26] MEDS: INSULIN SLIDING SCALE (NOVOLOG) 1 VIAL SQ SCH ×3 (06:58→16:43)
[2022-10-26] MEDS: GABAPENTIN 400 MG CAPSULE PO SCH ×3 (06:59→21:20)
[2022-10-26] MEDS: sitaGLIPtin PHOSPHATE 50 MG TABLET PO SCH (06:59)
[2022-10-26] MEDS: METHOCARBAMOL 500 MG TABLET PO PRN ×2 (07:01→21:21)
[2022-10-26] MEDS ORDERED: INSULIN (LEVEMIR) 100 UNITS/ML UNITS SQ SCH (10:15)
[2022-10-26] MEDS: TAMSULOSIN HCL 0.4 MG CAP PO SCH (10:16)
[2022-10-26] MEDS: PRENATAL VITAMINS W/ FOLIC ACID TABLET (FP) PO SCH (10:16)
[2022-10-26] MEDS: amLODIPine BESYLATE 10 MG TABLET (FP) PO SCH (10:16)
[2022-10-26] MEDS: LOSARTAN POTASSIUM 25 MG TABLET PO SCH (10:16)
[2022-10-26] MEDS: NAPROXEN 500 MG TABLET PO SCH ×2 (10:16→21:20)
[2022-10-26] MEDS: PANTOPRAZOLE 20 MG TABLET PO SCH ×2 (10:16→21:20)
[2022-10-26] MEDS ORDERED: INSULIN SLIDING SCALE (NOVOLOG) 1 VIAL SQ ONE (11:13)
[2022-10-26] MEDS: INSULIN (LEVEMIR) 100 UNITS/ML UNITS SQ SCH (11:16)
[2022-10-26 14:50] LABS: CHLORIDE 105 mmol/L (98-107); POTASSIUM 4.8 mmol/L (3.5-5.1); SODIUM 136 mmol/L (136-145)
[2022-10-26 14:55] LABS: ALBUMIN 3.6 g/dl (3.4-5.0); ANION GAP 5 MMOL/L (8-16); BLOOD UREA NITROGEN 24.6 mg/dL (7-18); CALCIUM 9.1 mg/dL (8.5-10.1); CO2 26 mmol/L (21-32); MAGNESIUM 1.9 mg/dL (1.8-2.4)
[2022-10-26 14:57] LABS: CREATININE 1.2 mg/dL (0.55-1.3); PHOSPHOROUS 2.8 mg/dL (2.5-4.9); SGOT/AST 34 U/L (15-37)
[2022-10-26 14:59] LABS: SGPT/ALT 41 U/L (13-61)
[2022-10-26 15:00] LABS: ALK PHOS 82 U/L (45-117); BILIRUBIN,TOTAL 0.6 mg/dL (0.2-1)
[2022-10-26 15:01] LABS: GLUCOSE,RANDOM 408 mg/dL (74-106); INR 0.92 (0.83-1.09); PROTHROMBIN TIME (PATIENT) 10.7 SEC (9.7-13.0)
[2022-10-26] MEDS: THIAMINE HCL 100 MG TABLET (FP) PO SCH (21:20)
[2022-10-26] MEDS: MELATONIN 5 MG TABLETS PO SCH (21:20)
[2022-10-26] MEDS: traZODone HCL 100 MG TABLET (FP) PO SCH (21:20)
[2022-10-27] MEDS: CEPHALEXIN MONOHYDRATE 500 MG CAPSULE (UD) PO SCH ×4 (00:32→18:32)
[2022-10-27] MEDS: sitaGLIPtin PHOSPHATE 50 MG TABLET PO SCH (06:29)
[2022-10-27] MEDS: GABAPENTIN 400 MG CAPSULE PO SCH ×3 (06:29→21:27)
[2022-10-27] MEDS: METHOCARBAMOL 500 MG TABLET PO PRN ×2 (06:30→21:27)
[2022-10-27] MEDS: hydrOXYzine PAMOATE 25 MG CAPSULE (FP) PO PRN ×2 (06:31→21:28)
[2022-10-27] MEDS: INSULIN SLIDING SCALE (NOVOLOG) 1 VIAL SQ SCH ×3 (07:50→16:53)
[2022-10-27] MEDS: NAPROXEN 500 MG TABLET PO SCH ×2 (10:12→21:27)
[2022-10-27] MEDS: PRENATAL VITAMINS W/ FOLIC ACID TABLET (FP) PO SCH (10:12)
[2022-10-27] MEDS: LOSARTAN POTASSIUM 25 MG TABLET PO SCH (10:12)
[2022-10-27] MEDS: PANTOPRAZOLE 20 MG TABLET PO SCH ×2 (10:12→21:27)
[2022-10-27] MEDS: amLODIPine BESYLATE 10 MG TABLET (FP) PO SCH (10:13)
[2022-10-27] MEDS: TAMSULOSIN HCL 0.4 MG CAP PO SCH (10:13)
[2022-10-27] MEDS: INSULIN (LEVEMIR) 100 UNITS/ML UNITS SQ SCH (10:13)
[2022-10-27] MEDS ORDERED: INSULIN (LEVEMIR) 100 UNITS/ML UNITS SQ SCH (10:30)
[2022-10-27] MEDS ORDERED: LISINOPRIL 5 MG TABLET PO ONE (10:51)
[2022-10-27] MEDS: LORATADINE 10 MG TABLET PO SCH (11:29)
[2022-10-27] MEDS: traZODone HCL 100 MG TABLET (FP) PO SCH (21:27)
[2022-10-27] MEDS: ACETAMINOPHEN 325 MG TABLET (FP) PO PRN (21:27)
[2022-10-27] MEDS: THIAMINE HCL 100 MG TABLET (FP) PO SCH (21:28)
[2022-10-27] MEDS: MELATONIN 5 MG TABLETS PO SCH (21:28)
[2022-10-28] MEDS: CEPHALEXIN MONOHYDRATE 500 MG CAPSULE (UD) PO SCH ×4 (00:10→17:05)
[2022-10-28] MEDS: INSULIN SLIDING SCALE (NOVOLOG) 1 VIAL SQ SCH ×3 (06:11→16:17)
[2022-10-28] MEDS: GABAPENTIN 400 MG CAPSULE PO SCH ×3 (06:14→21:13)
[2022-10-28] MEDS: sitaGLIPtin PHOSPHATE 50 MG TABLET PO SCH (06:14)
[2022-10-28] MEDS: hydrOXYzine PAMOATE 25 MG CAPSULE (FP) PO PRN ×2 (06:15→21:13)
[2022-10-28] MEDS: METHOCARBAMOL 500 MG TABLET PO PRN ×2 (06:15→21:14)
[2022-10-28] MEDS: PANTOPRAZOLE 20 MG TABLET PO SCH ×2 (10:02→21:12)
[2022-10-28] MEDS: NAPROXEN 500 MG TABLET PO SCH ×2 (10:02→21:14)
[2022-10-28] MEDS: PRENATAL VITAMINS W/ FOLIC ACID TABLET (FP) PO SCH (10:02)
[2022-10-28] MEDS: amLODIPine BESYLATE 10 MG TABLET (FP) PO SCH (10:02)
[2022-10-28] MEDS: TAMSULOSIN HCL 0.4 MG CAP PO SCH (10:03)
[2022-10-28] MEDS: LOSARTAN POTASSIUM 25 MG TABLET PO SCH (10:03)
[2022-10-28] MEDS: LORATADINE 10 MG TABLET PO SCH (10:03)
[2022-10-28] MEDS ORDERED: INSULIN (LEVEMIR) 100 UNITS/ML UNITS SQ SCH (10:30)
[2022-10-28] MEDS: LIDOCAINE 5% TOPICAL PATCH TP SCH (14:29)
[2022-10-28] MEDS: traZODone HCL 100 MG TABLET (FP) PO SCH (21:12)
[2022-10-28] MEDS: THIAMINE HCL 100 MG TABLET (FP) PO SCH (21:13)
[2022-10-28] MEDS: LIDOCAINE PATCH REMOVAL MC SCH (21:13)
[2022-10-28] MEDS: MELATONIN 5 MG TABLETS PO SCH (21:13)
[2022-10-29] MEDS: CEPHALEXIN MONOHYDRATE 500 MG CAPSULE (UD) PO SCH ×5 (00:19→23:12)
[2022-10-29] MEDS: MAG HYDROX/AL HYDROX/SIMETH 30 ML UNIT-DOSE CUP PO PRN (00:30)
[2022-10-29] MEDS: GABAPENTIN 400 MG CAPSULE PO SCH ×3 (06:32→21:54)
[2022-10-29] MEDS: sitaGLIPtin PHOSPHATE 50 MG TABLET PO SCH (06:32)
[2022-10-29] MEDS: ACETAMINOPHEN 325 MG TABLET (FP) PO PRN (06:36)
[2022-10-29] MEDS: INSULIN SLIDING SCALE (NOVOLOG) 1 VIAL SQ SCH ×3 (06:42→17:09)
[2022-10-29] MEDS: LOSARTAN POTASSIUM 25 MG TABLET PO SCH (09:48)
[2022-10-29] MEDS: PRENATAL VITAMINS W/ FOLIC ACID TABLET (FP) PO SCH (09:48)
[2022-10-29] MEDS: TAMSULOSIN HCL 0.4 MG CAP PO SCH (09:49)
[2022-10-29] MEDS: LORATADINE 10 MG TABLET PO SCH (09:49)
[2022-10-29] MEDS: NAPROXEN 500 MG TABLET PO SCH ×2 (09:49→21:56)
[2022-10-29] MEDS: amLODIPine BESYLATE 10 MG TABLET (FP) PO SCH (09:49)
[2022-10-29] MEDS: PANTOPRAZOLE 20 MG TABLET PO SCH ×2 (09:49→21:56)
[2022-10-29] MEDS: LIDOCAINE 5% TOPICAL PATCH TP SCH (09:50)
[2022-10-29] MEDS: METHOCARBAMOL 500 MG TABLET PO PRN (09:52)
[2022-10-29] MEDS: INSULIN (LEVEMIR) 100 UNITS/ML UNITS SQ SCH (11:08)
[2022-10-29] MEDS: hydrOXYzine PAMOATE 25 MG CAPSULE (FP) PO PRN (17:12)
[2022-10-29] MEDS: LIDOCAINE PATCH REMOVAL MC SCH (21:55)
[2022-10-29] MEDS: traZODone HCL 100 MG TABLET (FP) PO SCH (21:55)
[2022-10-29] MEDS: THIAMINE HCL 100 MG TABLET (FP) PO SCH (21:56)
[2022-10-29] MEDS: MELATONIN 5 MG TABLETS PO SCH (21:56)
[2022-10-30] MEDS: CEPHALEXIN MONOHYDRATE 500 MG CAPSULE (UD) PO SCH ×4 (06:58→23:11)
[2022-10-30] MEDS: sitaGLIPtin PHOSPHATE 50 MG TABLET PO SCH (06:58)
[2022-10-30] MEDS: GABAPENTIN 400 MG CAPSULE PO SCH ×3 (06:58→21:47)
[2022-10-30] MEDS: ACETAMINOPHEN 325 MG TABLET (FP) PO PRN (06:59)
[2022-10-30] MEDS: INSULIN SLIDING SCALE (NOVOLOG) 1 VIAL SQ SCH ×3 (07:07→16:42)
[2022-10-30] MEDS: PRENATAL VITAMINS W/ FOLIC ACID TABLET (FP) PO SCH (09:56)
[2022-10-30] MEDS: NAPROXEN 500 MG TABLET PO SCH ×2 (09:57→21:48)
[2022-10-30] MEDS: amLODIPine BESYLATE 10 MG TABLET (FP) PO SCH (09:57)
[2022-10-30] MEDS: PANTOPRAZOLE 20 MG TABLET PO SCH ×2 (09:57→21:48)
[2022-10-30] MEDS: TAMSULOSIN HCL 0.4 MG CAP PO SCH (09:57)
[2022-10-30] MEDS: LIDOCAINE 5% TOPICAL PATCH TP SCH (09:58)
[2022-10-30] MEDS: LORATADINE 10 MG TABLET PO SCH (09:58)
[2022-10-30] MEDS: LOSARTAN POTASSIUM 25 MG TABLET PO SCH (09:58)
[2022-10-30] MEDS: hydrOXYzine PAMOATE 25 MG CAPSULE (FP) PO PRN (10:00)
[2022-10-30] MEDS: INSULIN (LEVEMIR) 100 UNITS/ML UNITS SQ SCH (10:50)
[2022-10-30] MEDS ORDERED: INSULIN SLIDING SCALE (NOVOLOG) 1 VIAL SQ SCH (19:58)
[2022-10-30] MEDS: THIAMINE HCL 100 MG TABLET (FP) PO SCH (21:47)
[2022-10-30] MEDS: traZODone HCL 100 MG TABLET (FP) PO SCH (21:47)
[2022-10-30] MEDS: MELATONIN 5 MG TABLETS PO SCH (21:48)
[2022-10-30] MEDS: LIDOCAINE PATCH REMOVAL MC SCH (21:48)
[2022-10-31] MEDS: INSULIN SLIDING SCALE (NOVOLOG) 1 VIAL SQ SCH ×3 (06:32→18:36)
[2022-10-31] MEDS: hydrOXYzine PAMOATE 25 MG CAPSULE (FP) PO PRN (06:33)
[2022-10-31] MEDS: CEPHALEXIN MONOHYDRATE 500 MG CAPSULE (UD) PO SCH ×3 (06:34→18:36)
[2022-10-31] MEDS: GABAPENTIN 400 MG CAPSULE PO SCH ×3 (06:34→21:25)
[2022-10-31] MEDS: sitaGLIPtin PHOSPHATE 50 MG TABLET PO SCH (06:34)
[2022-10-31] MEDS: LORATADINE 10 MG TABLET PO SCH (09:58)
[2022-10-31] MEDS: TAMSULOSIN HCL 0.4 MG CAP PO SCH (09:58)
[2022-10-31] MEDS: PRENATAL VITAMINS W/ FOLIC ACID TABLET (FP) PO SCH (09:58)
[2022-10-31] MEDS: INSULIN (LEVEMIR) 100 UNITS/ML UNITS SQ SCH (09:58)
[2022-10-31] MEDS: NAPROXEN 500 MG TABLET PO SCH ×2 (09:58→21:25)
[2022-10-31] MEDS: LOSARTAN POTASSIUM 25 MG TABLET PO SCH (09:58)
[2022-10-31] MEDS: PANTOPRAZOLE 20 MG TABLET PO SCH ×2 (09:58→21:25)
[2022-10-31] MEDS: LIDOCAINE 5% TOPICAL PATCH TP SCH (09:58)
[2022-10-31] MEDS: amLODIPine BESYLATE 10 MG TABLET (FP) PO SCH (09:58)
[2022-10-31] MEDS ORDERED: METHOCARBAMOL 500 MG TABLET PO SCH (10:00)
[2022-10-31] MEDS: BACLOFEN 10 MG TABLET (FP) PO SCH ×2 (14:15→21:25)
[2022-10-31] MEDS: traZODone HCL 100 MG TABLET (FP) PO SCH (21:25)
[2022-10-31] MEDS: CLINDAMYCIN HCL 150 MG CAPSULE (FP) PO SCH (21:26)
[2022-10-31] MEDS: MELATONIN 5 MG TABLETS PO SCH (21:26)
[2022-10-31] MEDS: THIAMINE HCL 100 MG TABLET (FP) PO SCH (21:26)
[2022-10-31] MEDS: LIDOCAINE PATCH REMOVAL MC SCH (21:29)
[2022-10-31] MEDS: MAG HYDROX/AL HYDROX/SIMETH 30 ML UNIT-DOSE CUP PO PRN (22:40)
[2022-11-01] MEDS: BACLOFEN 10 MG TABLET (FP) PO SCH ×3 (06:17→21:28)
[2022-11-01] MEDS: GABAPENTIN 400 MG CAPSULE PO SCH ×3 (06:17→21:28)
[2022-11-01] MEDS: CLINDAMYCIN HCL 150 MG CAPSULE (FP) PO SCH ×3 (06:17→21:28)
[2022-11-01] MEDS: sitaGLIPtin PHOSPHATE 50 MG TABLET PO SCH (06:17)
[2022-11-01] MEDS: INSULIN SLIDING SCALE (NOVOLOG) 1 VIAL SQ SCH ×3 (06:18→16:39)
[2022-11-01] MEDS: hydrOXYzine PAMOATE 25 MG CAPSULE (FP) PO PRN ×2 (06:22→21:28)
[2022-11-01 06:58] VITALS: RESP 18
[2022-11-01] MEDS ORDERED: PATIENT'S OWN MEDICATION (NON-FORMULARY) (Semaglutide [Ozempic] 1 MG) SQ SCH (10:00)
[2022-11-01] MEDS: PRENATAL VITAMINS W/ FOLIC ACID TABLET (FP) PO SCH (10:02)
[2022-11-01] MEDS: NAPROXEN 500 MG TABLET PO SCH ×2 (10:03→21:27)
[2022-11-01] MEDS: LORATADINE 10 MG TABLET PO SCH (10:03)
[2022-11-01] MEDS: LOSARTAN POTASSIUM 25 MG TABLET PO SCH (10:03)
[2022-11-01] MEDS: amLODIPine BESYLATE 10 MG TABLET (FP) PO SCH (10:03)
[2022-11-01] MEDS: TAMSULOSIN HCL 0.4 MG CAP PO SCH (10:04)
[2022-11-01] MEDS: LIDOCAINE 5% TOPICAL PATCH TP SCH (10:04)
[2022-11-01] MEDS: PANTOPRAZOLE 20 MG TABLET PO SCH ×2 (10:04→21:28)
[2022-11-01] MEDS: PATIENT'S OWN MEDICATION (NON-FORMULARY) (Semaglutide [Ozempic] 1 MG) SQ SCH (10:43)
[2022-11-01] MEDS: INSULIN (LEVEMIR) 100 UNITS/ML UNITS SQ SCH (10:51)
[2022-11-01] MEDS: MELATONIN 5 MG TABLETS PO SCH (21:27)
[2022-11-01] MEDS: THIAMINE HCL 100 MG TABLET (FP) PO SCH (21:28)
[2022-11-01] MEDS: traZODone HCL 100 MG TABLET (FP) PO SCH (21:28)
[2022-11-01] MEDS: LIDOCAINE PATCH REMOVAL MC SCH (21:29)
[2022-11-02] MEDS: INSULIN SLIDING SCALE (NOVOLOG) 1 VIAL SQ SCH (06:23)
[2022-11-02] MEDS: sitaGLIPtin PHOSPHATE 50 MG TABLET PO SCH (06:25)
[2022-11-02] MEDS: hydrOXYzine PAMOATE 25 MG CAPSULE (FP) PO PRN (06:25)
[2022-11-02] MEDS: CLINDAMYCIN HCL 150 MG CAPSULE (FP) PO SCH (06:25)
[2022-11-02] MEDS: BACLOFEN 10 MG TABLET (FP) PO SCH (06:26)
[2022-11-02] MEDS: GABAPENTIN 400 MG CAPSULE PO SCH (06:26)
[2022-11-02 06:59] VITALS: TEMP 97.1
[2022-11-02] MEDS: PANTOPRAZOLE 20 MG TABLET PO SCH (09:34)
[2022-11-02] MEDS: INSULIN (LEVEMIR) 100 UNITS/ML UNITS SQ SCH (09:34)
[2022-11-02] MEDS: PRENATAL VITAMINS W/ FOLIC ACID TABLET (FP) PO SCH (09:34)
[2022-11-02] MEDS: LORATADINE 10 MG TABLET PO SCH (09:34)
[2022-11-02] MEDS: NAPROXEN 500 MG TABLET PO SCH (09:34)
[2022-11-02] MEDS: amLODIPine BESYLATE 10 MG TABLET (FP) PO SCH (09:34)
[2022-11-02] MEDS: TAMSULOSIN HCL 0.4 MG CAP PO SCH (09:34)
[2022-11-02] MEDS: LOSARTAN POTASSIUM 25 MG TABLET PO SCH (09:34)
[2022-11-02 09:44] VITALS: BP 112/76; PULSE 102
== END 2022-11-02 10:31 | disposition home or self-care (01) | DRG 895 ==
LOC: YASAS 13:37 → Y3W 13:39
PROVIDERS: ADMIT Allergy & Immunology; ATTEND Psychiatry & Neurology Pain Medicine
PROC: HZ42ZZZ Group Counseling for Substance Abuse Treatment, Cognitive-Behavioral (ICD-10-PCS; principal; 2022-10-23)
DX: F10.20 Alcohol dependence, uncomplicated (principal); L02.31 Cutaneous abscess of buttock; F12.20 Cannabis dependence, uncomplicated; F32.A Depression, unspecified; G47.00 Insomnia, unspecified; E78.5 Hyperlipidemia, unspecified; I10 Essential (primary) hypertension; E11.65 Type 2 diabetes mellitus with hyperglycemia; E11.42 Type 2 diabetes mellitus with diabetic polyneuropathy; Z79.84 Long term (current) use of oral hypoglycemic drugs; Z79.85 Long-term (current) use of injectable non-insulin antidiabetic drugs; M54.50 Low back pain, unspecified; N40.0 Benign prostatic hyperplasia without lower urinary tract symptoms; E66.9 Obesity, unspecified; Z68.36 Body mass index [BMI] 36.0-36.9, adult; Z87.891 Personal history of nicotine dependence; Z99.89 Dependence on other enabling machines and devices; Z86.711 Personal history of pulmonary embolism; Z98.2 Presence of cerebrospinal fluid drainage device
CPT/HCPCS: 36415; 80053; 82962; 83036; 83735; 84100; 85610; 86803; J0475

== ENCOUNTER 2022-10-31 12:49 | Emergency (ER) | payer OTHER ==
[2022-10-31 12:56] VITALS: TEMP 98.9; BMI 36.1
[2022-10-31] MEDS ORDERED: LACTATED RINGERS SOLUTION 1000 ML INFUS.BAG IV ONE (14:37)
[2022-10-31 15:10] VITALS: BP 141/84; PULSE 88; RESP 23
[2022-10-31 15:37] LABS: BASO % 1.2 % (0-2.0); EOS % 6.6 % (0-4.5); HEMATOCRIT 36.4 % (35.4-49); HEMOGLOBIN 12.4 GM/dL (11.7-16.9); LYMPH % 17.2 % (8-40); MCH 26.7 pg (25.7-33.7); MEAN CELL VOLUME 78.4 fl (80-96); MEAN PLT VOLUME 8.6 fl (7.5-11.1); PLATELET COUNT 242 10^3/uL (134-434); RBC 4.65 M/mm3 (4.00-5.60); RDW 16.6 % (11.9-15.9); WHITE BLOOD COUNT 9.5 K/mm3 (4.0-10.0)
[2022-10-31 15:40] LABS: VENOUS BASE EXCESS 0.9 mmol/L (-2-2); VENOUS O2 SATURATION 73.3 % (70-80); VENOUS PCO2 43.9 mmHg (38-52); VENOUS PH 7.392 (7.310-7.410)
[2022-10-31 15:59] LABS: ANISOCYTOSIS 2+; MACROCYTOSIS 0
[2022-10-31 16:32] LABS: POTASSIUM 4.7 mmol/L (3.5-5.1)
[2022-10-31 16:34] LABS: CALCIUM 9.4 mg/dL (8.5-10.1)
[2022-10-31 16:35] LABS: BLOOD UREA NITROGEN 27.3 mg/dL (7-18)
[2022-10-31 16:36] LABS: PH,URINE 6.5 (5.0-8.0); URINE APPEARANCE CLEAR; URINE BILIRUBIN NEGATIVE (NEGATIVE); URINE COLOR YELLOW; URINE GLUCOSE (UA) 3+ (NEGATIVE); URINE KETONE NEGATIVE (NEGATIVE); URINE LEUK ESTERASE NEGATIVE (NEGATIVE); URINE NITRITE NEGATIVE (NEGATIVE); URINE PROTEIN NEGATIVE (NEGATIVE); URINE UROBILINOGEN 0.2 mg/dL (0.2-1.0)
[2022-10-31 16:38] LABS: CREATININE 1.1 mg/dL (0.55-1.3)
[2022-10-31] MEDS ORDERED: INSULIN (NOVOLOG) ASPART 100 UNITS/ML 10ML VIAL SQ ONE (16:43)
== END 2022-10-31 17:56 | disposition home or self-care (01) ==
LOC: JERFT 12:49
PROC: 3E013VG Introduction of Insulin into Subcutaneous Tissue, Percutaneous Approach (ICD-10-PCS; principal; 2022-10-31)
DX: L02.31 Cutaneous abscess of buttock (principal); R73.9 Hyperglycemia, unspecified
CPT/HCPCS: 36415; 80048; 81003; 82010; 82803; 82962; 85025; 99284-25

== ENCOUNTER 2023-02-10 11:12 | Inpatient (IN) | payer OTHER ==
[2023-02-10 12:01] VITALS: BMI 38.0
[2023-02-10] MEDS ORDERED: chlordiazePOXIDE HCL 25 MG CAPSULE PO PRN (15:10)
[2023-02-10] MEDS ORDERED: ONDANSETRON *ODT* 4 MG TABLET SL PRN (15:19)
[2023-02-10] MEDS ORDERED: BISMUTH SUBSALICYLATE 262 MG/15 ML BTL PO PRN (15:19)
[2023-02-10] MEDS ORDERED: MAGNESIUM HYDROX 2400MG/30ML ORAL SUSPENSION 30 ML CUP PO PRN (15:19)
[2023-02-10] MEDS ORDERED: IBUPROFEN 600 MG TABLET (FP) PO PRN (15:19)
[2023-02-10] MEDS ORDERED: LOPERAMIDE HCL 2 MG CAPSULE PO PRN (15:19)
[2023-02-10] MEDS ORDERED: ACETAMINOPHEN 325 MG TABLET (FP) PO PRN (15:19)
[2023-02-10] MEDS ORDERED: guaiFENesin 600 MG TABLET.ER (FP) PO PRN (15:19)
[2023-02-10] MEDS ORDERED: BENZONATATE 200 MG CAPSULE PO PRN (15:19)
[2023-02-10] MEDS ORDERED: POLYETHYLENE GLYCOL (HEALTHYLAX) 3350 17 GM PACKET PO PRN (15:19)
[2023-02-10] MEDS ORDERED: IBUPROFEN 400 MG TABLET (FP) PO PRN (15:19)
[2023-02-10] MEDS ORDERED: chlordiazePOXIDE HCL 25 MG CAPSULE ONE (17:08)
[2023-02-10] MEDS ORDERED: INSULIN (NOVOLOG) ASPART 100 UNITS/ML 10ML VIAL ONE (17:09)
[2023-02-10] MEDS: chlordiazePOXIDE HCL 25 MG CAPSULE PO SCH ×2 (17:16→22:29)
[2023-02-10] MEDS: INSULIN SLIDING SCALE (NOVOLOG) 1 VIAL SQ SCH ×2 (17:16→22:27)
[2023-02-10] MEDS ORDERED: GABAPENTIN 300 MG CAPSULE PO SCH (22:00)
[2023-02-10] MEDS: ATORVASTATIN CA 20 MG TABLET (FP) PO SCH (22:29)
[2023-02-10] MEDS: THIAMINE HCL 100 MG TABLET (FP) PO SCH (22:29)
[2023-02-10] MEDS: TAMSULOSIN HCL 0.4 MG CAP PO SCH (22:29)
[2023-02-10] MEDS: MELATONIN 5 MG TABLETS PO SCH (22:29)
[2023-02-10] MEDS: GABAPENTIN 300 MG CAPSULE PO SCH (22:29)
[2023-02-11] MEDS: chlordiazePOXIDE HCL 25 MG CAPSULE PO SCH ×4 (05:38→22:02)
[2023-02-11] MEDS: GABAPENTIN 300 MG CAPSULE PO SCH ×3 (05:38→22:00)
[2023-02-11] MEDS: INSULIN SLIDING SCALE (NOVOLOG) 1 VIAL SQ SCH ×4 (06:21→22:16)
[2023-02-11] MEDS: sitaGLIPtin PHOSPHATE 50 MG TABLET PO SCH (06:38)
[2023-02-11] MEDS: TAMSULOSIN HCL 0.4 MG CAP PO SCH ×2 (10:58→20:30)
[2023-02-11] MEDS: PRENATAL VITAMINS W/ FOLIC ACID TABLET (FP) PO SCH (10:58)
[2023-02-11 11:38] LABS: HEMATOCRIT 39.2 % (35.4-49); MCH 26.8 pg (25.7-33.7); MCHC 33.2 g/dl (32.0-35.9); MEAN CELL VOLUME 80.7 fl (80-96); MEAN PLT VOLUME 8.4 fl (7.5-11.1); PLATELET COUNT 231 10^3/uL (134-434); RBC 4.85 M/mm3 (4.00-5.60); RDW 15.8 % (11.9-15.9); WHITE BLOOD COUNT 7.4 K/mm3 (4.0-10.0)
[2023-02-11 12:05] LABS: POTASSIUM 4.4 mmol/L (3.5-5.1)
[2023-02-11 12:11] LABS: ALBUMIN 3.7 g/dl (3.4-5.0); BLOOD UREA NITROGEN 30.2 mg/dL (7-18); CALCIUM 9.2 mg/dL (8.5-10.1)
[2023-02-11 12:14] LABS: CREATININE 1.3 mg/dL (0.55-1.3)
[2023-02-11 12:16] LABS: BILIRUBIN,TOTAL 0.4 mg/dL (0.2-1); TOT PROT 7.3 g/dl (6.4-8.2)
[2023-02-11] MEDS: MELATONIN 5 MG TABLETS PO SCH (21:59)
[2023-02-11] MEDS: traZODone HCL 50 MG TABLET (FP) PO SCH (22:01)
[2023-02-11] MEDS: ATORVASTATIN CA 20 MG TABLET (FP) PO SCH (22:01)
[2023-02-11] MEDS: THIAMINE HCL 100 MG TABLET (FP) PO SCH (22:01)
[2023-02-12] MEDS: chlordiazePOXIDE HCL 25 MG CAPSULE PO SCH ×4 (05:57→22:04)
[2023-02-12] MEDS: GABAPENTIN 300 MG CAPSULE PO SCH ×3 (05:57→22:04)
[2023-02-12] MEDS ORDERED: INSULIN SLIDING SCALE (NOVOLOG) 1 VIAL SQ ONE (05:57)
[2023-02-12] MEDS: INSULIN SLIDING SCALE (NOVOLOG) 1 VIAL SQ SCH ×4 (06:00→22:05)
[2023-02-12] MEDS: sitaGLIPtin PHOSPHATE 50 MG TABLET PO SCH (07:13)
[2023-02-12] MEDS: PRENATAL VITAMINS W/ FOLIC ACID TABLET (FP) PO SCH (10:39)
[2023-02-12] MEDS: TAMSULOSIN HCL 0.4 MG CAP PO SCH ×2 (10:39→20:13)
[2023-02-12] MEDS: amLODIPine BESYLATE 10 MG TABLET (FP) PO SCH (15:31)
[2023-02-12] MEDS: PANTOPRAZOLE 40 MG TABLET PO SCH (15:31)
[2023-02-12] MEDS: metFORMIN HCL 500 MG TABLET (FP) PO SCH (17:19)
[2023-02-12] MEDS: ATORVASTATIN CA 20 MG TABLET (FP) PO SCH (22:03)
[2023-02-12] MEDS: traZODone HCL 50 MG TABLET (FP) PO SCH (22:03)
[2023-02-12] MEDS: MELATONIN 5 MG TABLETS PO SCH (22:04)
[2023-02-12] MEDS: THIAMINE HCL 100 MG TABLET (FP) PO SCH (22:04)
[2023-02-12] MEDS: MAG HYDROX/AL HYDROX/SIMETH 30 ML UNIT-DOSE CUP PO PRN (22:08)
[2023-02-13] MEDS ORDERED: chlordiazePOXIDE HCL 10 MG CAPSULE PO PRN
[2023-02-13] MEDS: BENZOCAINE/MENTHOL (CHLORASEPTIC ) LOZENGE MM PRN (02:18)
[2023-02-13] MEDS: P-EPHED 60MG/TRIPROLIDI 2.5MG TABLET PO PRN (02:18)
[2023-02-13] MEDS ORDERED: INSULIN SLIDING SCALE (NOVOLOG) 1 VIAL SQ ONE (05:32)
[2023-02-13] MEDS: chlordiazePOXIDE HCL 10 MG CAPSULE PO SCH ×4 (05:33→22:28)
[2023-02-13] MEDS: GABAPENTIN 300 MG CAPSULE PO SCH ×3 (05:34→22:28)
[2023-02-13] MEDS: metFORMIN HCL 500 MG TABLET (FP) PO SCH ×2 (06:14→17:15)
[2023-02-13] MEDS: sitaGLIPtin PHOSPHATE 50 MG TABLET PO SCH (06:14)
[2023-02-13] MEDS: INSULIN SLIDING SCALE (NOVOLOG) 1 VIAL SQ SCH ×4 (06:15→22:30)
[2023-02-13] MEDS: TAMSULOSIN HCL 0.4 MG CAP PO SCH ×2 (09:01→22:28)
[2023-02-13] MEDS: PANTOPRAZOLE 40 MG TABLET PO SCH (10:22)
[2023-02-13] MEDS: amLODIPine BESYLATE 10 MG TABLET (FP) PO SCH (10:22)
[2023-02-13] MEDS: PRENATAL VITAMINS W/ FOLIC ACID TABLET (FP) PO SCH (10:23)
[2023-02-13] MEDS: traZODone HCL 50 MG TABLET (FP) PO SCH (22:27)
[2023-02-13] MEDS: MELATONIN 5 MG TABLETS PO SCH (22:27)
[2023-02-13] MEDS: THIAMINE HCL 100 MG TABLET (FP) PO SCH (22:28)
[2023-02-13] MEDS: ATORVASTATIN CA 20 MG TABLET (FP) PO SCH (22:28)
[2023-02-14] MEDS: MAG HYDROX/AL HYDROX/SIMETH 30 ML UNIT-DOSE CUP PO PRN (00:30)
[2023-02-14] MEDS: METHOCARBAMOL 500 MG TABLET PO PRN ×2 (02:06→22:51)
[2023-02-14] MEDS: GABAPENTIN 300 MG CAPSULE PO SCH ×3 (05:59→22:51)
[2023-02-14] MEDS: metFORMIN HCL 500 MG TABLET (FP) PO SCH ×2 (05:59→17:19)
[2023-02-14] MEDS: sitaGLIPtin PHOSPHATE 50 MG TABLET PO SCH (05:59)
[2023-02-14] MEDS: chlordiazePOXIDE HCL 10 MG CAPSULE PO SCH ×2 (05:59→17:19)
[2023-02-14] MEDS: INSULIN SLIDING SCALE (NOVOLOG) 1 VIAL SQ SCH ×4 (06:17→22:50)
[2023-02-14] MEDS ORDERED: INSULIN SLIDING SCALE (NOVOLOG) 1 VIAL SQ ONE (06:32)
[2023-02-14] MEDS: TAMSULOSIN HCL 0.4 MG CAP PO SCH ×2 (09:22→22:51)
[2023-02-14] MEDS: amLODIPine BESYLATE 10 MG TABLET (FP) PO SCH (09:22)
[2023-02-14] MEDS: PANTOPRAZOLE 40 MG TABLET PO SCH (09:22)
[2023-02-14] MEDS: PRENATAL VITAMINS W/ FOLIC ACID TABLET (FP) PO SCH (09:23)
[2023-02-14] MEDS ORDERED: PANTOPRAZOLE 40 MG TABLET PO SCH (22:00)
[2023-02-14] MEDS ORDERED: traZODone HCL 100 MG TABLET (FP) PO SCH (22:00)
[2023-02-14] MEDS: MELATONIN 5 MG TABLETS PO SCH (22:51)
[2023-02-14] MEDS: ATORVASTATIN CA 20 MG TABLET (FP) PO SCH (22:51)
[2023-02-14] MEDS: THIAMINE HCL 100 MG TABLET (FP) PO SCH (22:53)
[2023-02-14 23:45] VITALS: RESP 18
[2023-02-15] MEDS: P-EPHED 60MG/TRIPROLIDI 2.5MG TABLET PO PRN (01:48)
[2023-02-15] MEDS: BENZOCAINE/MENTHOL (CHLORASEPTIC ) LOZENGE MM PRN (01:48)
[2023-02-15] MEDS ORDERED: chlordiazePOXIDE HCL 10 MG CAPSULE PO ONE (05:00)
[2023-02-15] MEDS: GABAPENTIN 300 MG CAPSULE PO SCH (06:03)
[2023-02-15] MEDS: sitaGLIPtin PHOSPHATE 50 MG TABLET PO SCH (06:03)
[2023-02-15] MEDS: metFORMIN HCL 500 MG TABLET (FP) PO SCH (06:04)
[2023-02-15] MEDS ORDERED: INSULIN SLIDING SCALE (NOVOLOG) 1 VIAL SQ ONE (06:26)
[2023-02-15] MEDS: INSULIN SLIDING SCALE (NOVOLOG) 1 VIAL SQ SCH (06:27)
[2023-02-15] MEDS: TAMSULOSIN HCL 0.4 MG CAP PO SCH (09:11)
[2023-02-15] MEDS: PRENATAL VITAMINS W/ FOLIC ACID TABLET (FP) PO SCH (09:11)
[2023-02-15] MEDS: amLODIPine BESYLATE 10 MG TABLET (FP) PO SCH (09:11)
[2023-02-15 09:32] VITALS: BP 130/70; PULSE 83; TEMP 98.6
== END 2023-02-15 11:05 | disposition other institution (70) | DRG 897 ==
LOC: YASAS 11:12 → Y3N 16:28
PROVIDERS: ADMIT Allergy & Immunology; ATTEND Allergy & Immunology
PROC: HZ2ZZZZ Detoxification Services for Substance Abuse Treatment (ICD-10-PCS; principal; 2023-02-10)
DX: F10.230 Alcohol dependence with withdrawal, uncomplicated (principal); I10 Essential (primary) hypertension; E11.9 Type 2 diabetes mellitus without complications; Z79.84 Long term (current) use of oral hypoglycemic drugs; N40.0 Benign prostatic hyperplasia without lower urinary tract symptoms; Z87.891 Personal history of nicotine dependence
CPT/HCPCS: 36415; 80053; 82962; 85027; 86780; 87635; 87811

== ENCOUNTER 2023-02-15 11:18 | Inpatient (IN) | payer OTHER ==
[2023-02-15] MEDS ORDERED: MAGNESIUM HYDROX 2400MG/30ML ORAL SUSPENSION 30 ML CUP PO PRN (12:39)
[2023-02-15] MEDS ORDERED: MAG HYDROX/AL HYDROX/SIMETH 30 ML UNIT-DOSE CUP PO PRN (12:39)
[2023-02-15] MEDS ORDERED: COLLOIDAL OATMEAL 1 BAR EACH TP PRN (12:39)
[2023-02-15] MEDS ORDERED: BENZONATATE 200 MG CAPSULE PO PRN (12:39)
[2023-02-15] MEDS ORDERED: POLYETHYLENE GLYCOL (HEALTHYLAX) 3350 17 GM PACKET PO PRN (12:39)
[2023-02-15] MEDS ORDERED: guaiFENesin 600 MG TABLET.ER (FP) PO PRN (12:39)
[2023-02-15] MEDS ORDERED: NALOXONE HCL (KLOXXADO) 8 MG SPRAY NS PRN (12:39)
[2023-02-15] MEDS ORDERED: IBUPROFEN 400 MG TABLET (FP) PO PRN (12:39)
[2023-02-15] MEDS ORDERED: ACETAMINOPHEN 325 MG TABLET (FP) PO PRN (12:39)
[2023-02-15] MEDS ORDERED: NALOXONE HCL 0.4 MG/ML VIAL IVPUSH PRN (12:39)
[2023-02-15] MEDS ORDERED: AMMONIUM LACTATE 12% LOTION 225 GM BOTTLE TP PRN (12:39)
[2023-02-15] MEDS ORDERED: PATIENT'S OWN MEDICATION (NON-FORMULARY) (Semaglutide [Ozempic] 2 MG/0.75 ML Pen.Injctr) SQ SCH (12:45)
[2023-02-15] MEDS ORDERED: INSULIN (NOVOLOG) ASPART 100 UNITS/ML 10ML VIAL SQ ONE (14:15)
[2023-02-15] MEDS: GABAPENTIN 300 MG CAPSULE PO SCH ×2 (14:19→21:30)
[2023-02-15] MEDS ORDERED: INSULIN SLIDING SCALE (NOVOLOG) 1 VIAL SQ ONE (14:20)
[2023-02-15] MEDS: CHOLECALCIFEROL (VIT D3) 400 UNIT (10 MCG) TABLET PO SCH (16:15)
[2023-02-15] MEDS: INSULIN SLIDING SCALE (NOVOLOG) 1 VIAL SQ SCH ×2 (16:16→21:31)
[2023-02-15] MEDS: BENZOCAINE/MENTHOL (CHLORASEPTIC ) LOZENGE MM PRN (20:30)
[2023-02-15] MEDS: ATORVASTATIN CA 20 MG TABLET (FP) PO SCH (21:29)
[2023-02-15] MEDS: MELATONIN 5 MG TABLETS PO SCH (21:29)
[2023-02-15] MEDS: metFORMIN HCL 500 MG TABLET (FP) PO SCH (21:29)
[2023-02-15] MEDS: TAMSULOSIN HCL 0.4 MG CAP PO SCH (21:29)
[2023-02-15] MEDS: THIAMINE HCL 100 MG TABLET (FP) PO SCH (21:29)
[2023-02-15] MEDS: traZODone HCL 100 MG TABLET (FP) PO SCH (21:30)
[2023-02-15] MEDS: PANTOPRAZOLE 40 MG TABLET PO SCH (21:31)
[2023-02-15] MEDS: INSULIN (LEVEMIR) 100 UNITS/ML UNITS SQ SCH (21:31)
[2023-02-15] MEDS: CLOTRIMAZOLE 1% CREAM TP SCH (21:36)
[2023-02-15] MEDS ORDERED: TOLNAFTATE 1% CREAM 15 GM TUBE TP SCH (22:00)
[2023-02-16] MEDS: GABAPENTIN 300 MG CAPSULE PO SCH ×3 (06:07→21:23)
[2023-02-16] MEDS: metFORMIN HCL 500 MG TABLET (FP) PO SCH ×2 (06:07→16:22)
[2023-02-16] MEDS: INSULIN SLIDING SCALE (NOVOLOG) 1 VIAL SQ SCH ×4 (06:09→21:25)
[2023-02-16] MEDS: IBUPROFEN 600 MG TABLET (FP) PO PRN ×2 (10:56→18:55)
[2023-02-16] MEDS: hydrOXYzine PAMOATE 25 MG CAPSULE (FP) PO PRN (10:58)
[2023-02-16] MEDS: PRENATAL VITAMINS W/ FOLIC ACID TABLET (FP) PO SCH (11:00)
[2023-02-16] MEDS: TAMSULOSIN HCL 0.4 MG CAP PO SCH ×2 (11:00→21:23)
[2023-02-16] MEDS: CHOLECALCIFEROL (VIT D3) 400 UNIT (10 MCG) TABLET PO SCH (11:00)
[2023-02-16] MEDS: amLODIPine BESYLATE 10 MG TABLET (FP) PO SCH (11:00)
[2023-02-16] MEDS: CLOTRIMAZOLE 1% CREAM TP SCH ×2 (11:00→21:24)
[2023-02-16] MEDS: PANTOPRAZOLE 40 MG TABLET PO SCH ×2 (11:00→21:23)
[2023-02-16] MEDS: BACLOFEN 10 MG TABLET (FP) PO PRN (12:16)
[2023-02-16] MEDS: LOPERAMIDE HCL 2 MG CAPSULE PO PRN (12:16)
[2023-02-16] MEDS: BENZOCAINE/MENTHOL (CHLORASEPTIC ) LOZENGE MM PRN (18:56)
[2023-02-16] MEDS: THIAMINE HCL 100 MG TABLET (FP) PO SCH (21:23)
[2023-02-16] MEDS: traZODone HCL 100 MG TABLET (FP) PO SCH (21:23)
[2023-02-16] MEDS: ATORVASTATIN CA 20 MG TABLET (FP) PO SCH (21:23)
[2023-02-16] MEDS: MELATONIN 5 MG TABLETS PO SCH (21:23)
[2023-02-16] MEDS: INSULIN (LEVEMIR) 100 UNITS/ML UNITS SQ SCH (21:26)
[2023-02-17] MEDS: IBUPROFEN 600 MG TABLET (FP) PO PRN ×2 (01:30→16:28)
[2023-02-17] MEDS: hydrOXYzine PAMOATE 25 MG CAPSULE (FP) PO PRN (01:30)
[2023-02-17] MEDS: GABAPENTIN 300 MG CAPSULE PO SCH ×3 (06:21→21:40)
[2023-02-17] MEDS: metFORMIN HCL 500 MG TABLET (FP) PO SCH ×2 (06:21→16:27)
[2023-02-17] MEDS: INSULIN SLIDING SCALE (NOVOLOG) 1 VIAL SQ SCH ×4 (06:25→21:42)
[2023-02-17] MEDS: CLOTRIMAZOLE 1% CREAM TP SCH ×2 (09:55→21:43)
[2023-02-17] MEDS: CHOLECALCIFEROL (VIT D3) 400 UNIT (10 MCG) TABLET PO SCH (09:55)
[2023-02-17] MEDS: PANTOPRAZOLE 40 MG TABLET PO SCH ×2 (09:55→21:40)
[2023-02-17] MEDS: TAMSULOSIN HCL 0.4 MG CAP PO SCH ×2 (09:55→21:39)
[2023-02-17] MEDS: PRENATAL VITAMINS W/ FOLIC ACID TABLET (FP) PO SCH (09:55)
[2023-02-17] MEDS: amLODIPine BESYLATE 10 MG TABLET (FP) PO SCH (09:55)
[2023-02-17] MEDS: BACLOFEN 10 MG TABLET (FP) PO PRN ×2 (09:57→21:40)
[2023-02-17] MEDS: ATORVASTATIN CA 20 MG TABLET (FP) PO SCH (21:39)
[2023-02-17] MEDS: THIAMINE HCL 100 MG TABLET (FP) PO SCH (21:39)
[2023-02-17] MEDS: MELATONIN 5 MG TABLETS PO SCH (21:40)
[2023-02-17] MEDS: traZODone HCL 100 MG TABLET (FP) PO SCH (21:40)
[2023-02-17] MEDS: INSULIN (LEVEMIR) 100 UNITS/ML UNITS SQ SCH (21:43)
[2023-02-18] MEDS: metFORMIN HCL 500 MG TABLET (FP) PO SCH ×2 (06:25→16:54)
[2023-02-18] MEDS: GABAPENTIN 300 MG CAPSULE PO SCH ×3 (06:25→22:08)
[2023-02-18] MEDS: INSULIN SLIDING SCALE (NOVOLOG) 1 VIAL SQ SCH ×4 (06:26→22:09)
[2023-02-18] MEDS: IBUPROFEN 600 MG TABLET (FP) PO PRN ×2 (06:27→17:57)
[2023-02-18] MEDS: PRENATAL VITAMINS W/ FOLIC ACID TABLET (FP) PO SCH (09:13)
[2023-02-18] MEDS: amLODIPine BESYLATE 10 MG TABLET (FP) PO SCH (09:13)
[2023-02-18] MEDS: PANTOPRAZOLE 40 MG TABLET PO SCH ×2 (09:13→22:08)
[2023-02-18] MEDS: TAMSULOSIN HCL 0.4 MG CAP PO SCH ×2 (09:13→22:08)
[2023-02-18] MEDS: CHOLECALCIFEROL (VIT D3) 400 UNIT (10 MCG) TABLET PO SCH (09:13)
[2023-02-18] MEDS: CLOTRIMAZOLE 1% CREAM TP SCH ×2 (09:13→22:09)
[2023-02-18] MEDS: LOPERAMIDE HCL 2 MG CAPSULE PO PRN (12:17)
[2023-02-18] MEDS: ARTIFICIAL TEARS (POLYVINYL ALCOHOL) OPTH DROPS OU PRN (14:28)
[2023-02-18] MEDS: BACLOFEN 10 MG TABLET (FP) PO PRN (17:58)
[2023-02-18] MEDS: traZODone HCL 100 MG TABLET (FP) PO SCH (22:07)
[2023-02-18] MEDS: ATORVASTATIN CA 20 MG TABLET (FP) PO SCH (22:08)
[2023-02-18] MEDS: MELATONIN 5 MG TABLETS PO SCH (22:08)
[2023-02-18] MEDS: THIAMINE HCL 100 MG TABLET (FP) PO SCH (22:10)
[2023-02-18] MEDS: INSULIN (LEVEMIR) 100 UNITS/ML UNITS SQ SCH (22:10)
[2023-02-19] MEDS: GABAPENTIN 300 MG CAPSULE PO SCH ×3 (07:11→21:26)
[2023-02-19] MEDS: metFORMIN HCL 500 MG TABLET (FP) PO SCH ×2 (07:11→16:55)
[2023-02-19] MEDS: IBUPROFEN 600 MG TABLET (FP) PO PRN ×3 (07:12→16:54)
[2023-02-19] MEDS: INSULIN SLIDING SCALE (NOVOLOG) 1 VIAL SQ SCH ×4 (07:14→21:29)
[2023-02-19] MEDS: PRENATAL VITAMINS W/ FOLIC ACID TABLET (FP) PO SCH (09:09)
[2023-02-19] MEDS: CLOTRIMAZOLE 1% CREAM TP SCH ×2 (09:09→21:24)
[2023-02-19] MEDS: TAMSULOSIN HCL 0.4 MG CAP PO SCH ×2 (09:09→21:26)
[2023-02-19] MEDS: amLODIPine BESYLATE 10 MG TABLET (FP) PO SCH (09:09)
[2023-02-19] MEDS: CHOLECALCIFEROL (VIT D3) 400 UNIT (10 MCG) TABLET PO SCH (09:09)
[2023-02-19] MEDS: PANTOPRAZOLE 40 MG TABLET PO SCH ×2 (09:09→21:26)
[2023-02-19] MEDS: BACLOFEN 10 MG TABLET (FP) PO PRN ×2 (09:10→16:55)
[2023-02-19] MEDS: LOPERAMIDE HCL 2 MG CAPSULE PO PRN (11:39)
[2023-02-19] MEDS: INSULIN (LEVEMIR) 100 UNITS/ML UNITS SQ SCH (21:25)
[2023-02-19] MEDS: ATORVASTATIN CA 20 MG TABLET (FP) PO SCH (21:26)
[2023-02-19] MEDS: THIAMINE HCL 100 MG TABLET (FP) PO SCH (21:26)
[2023-02-19] MEDS: traZODone HCL 100 MG TABLET (FP) PO SCH (21:26)
[2023-02-19] MEDS: MELATONIN 5 MG TABLETS PO SCH (21:27)
[2023-02-20] MEDS: metFORMIN HCL 500 MG TABLET (FP) PO SCH ×2 (06:15→16:24)
[2023-02-20] MEDS: GABAPENTIN 300 MG CAPSULE PO SCH ×3 (06:15→21:19)
[2023-02-20] MEDS: IBUPROFEN 600 MG TABLET (FP) PO PRN ×2 (06:16→14:29)
[2023-02-20] MEDS: INSULIN SLIDING SCALE (NOVOLOG) 1 VIAL SQ SCH ×4 (06:16→21:21)
[2023-02-20] MEDS: CHOLECALCIFEROL (VIT D3) 400 UNIT (10 MCG) TABLET PO SCH (09:09)
[2023-02-20] MEDS: TAMSULOSIN HCL 0.4 MG CAP PO SCH ×2 (09:09→21:19)
[2023-02-20] MEDS: PRENATAL VITAMINS W/ FOLIC ACID TABLET (FP) PO SCH (09:09)
[2023-02-20] MEDS: PANTOPRAZOLE 40 MG TABLET PO SCH ×2 (09:09→21:19)
[2023-02-20] MEDS: amLODIPine BESYLATE 10 MG TABLET (FP) PO SCH (09:10)
[2023-02-20] MEDS: CLOTRIMAZOLE 1% CREAM TP SCH ×2 (09:11→21:55)
[2023-02-20] MEDS: BACLOFEN 10 MG TABLET (FP) PO PRN ×2 (09:12→21:20)
[2023-02-20] MEDS: ARTIFICIAL TEARS (POLYVINYL ALCOHOL) OPTH DROPS OU PRN ×2 (13:17→23:11)
[2023-02-20] MEDS ORDERED: LIDOCAINE 5% TOPICAL PATCH TP ONE (16:00)
[2023-02-20] MEDS: traZODone HCL 100 MG TABLET (FP) PO SCH (21:19)
[2023-02-20] MEDS: ATORVASTATIN CA 20 MG TABLET (FP) PO SCH (21:19)
[2023-02-20] MEDS: MELATONIN 5 MG TABLETS PO SCH (21:19)
[2023-02-20] MEDS: THIAMINE HCL 100 MG TABLET (FP) PO SCH (21:19)
[2023-02-20] MEDS: INSULIN (LEVEMIR) 100 UNITS/ML UNITS SQ SCH (21:21)
[2023-02-20] MEDS ORDERED: LIDOCAINE PATCH REMOVAL MC ONE (22:00)
[2023-02-21] MEDS: IBUPROFEN 600 MG TABLET (FP) PO PRN (06:22)
[2023-02-21] MEDS: GABAPENTIN 300 MG CAPSULE PO SCH (06:22)
[2023-02-21] MEDS: BACLOFEN 10 MG TABLET (FP) PO PRN (06:22)
[2023-02-21] MEDS: metFORMIN HCL 500 MG TABLET (FP) PO SCH (06:22)
[2023-02-21] MEDS: INSULIN SLIDING SCALE (NOVOLOG) 1 VIAL SQ SCH ×2 (06:23→11:31)
[2023-02-21 06:44] VITALS: RESP 17
[2023-02-21] MEDS: amLODIPine BESYLATE 10 MG TABLET (FP) PO SCH (09:14)
[2023-02-21] MEDS: PANTOPRAZOLE 40 MG TABLET PO SCH (09:14)
[2023-02-21] MEDS: PRENATAL VITAMINS W/ FOLIC ACID TABLET (FP) PO SCH (09:14)
[2023-02-21] MEDS: CHOLECALCIFEROL (VIT D3) 400 UNIT (10 MCG) TABLET PO SCH (09:14)
[2023-02-21] MEDS: TAMSULOSIN HCL 0.4 MG CAP PO SCH (09:14)
[2023-02-21 09:15] VITALS: BP 113/60; PULSE 90; TEMP 97.5
[2023-02-21] MEDS: CLOTRIMAZOLE 1% CREAM TP SCH (10:08)
[2023-02-21] MEDS: LOPERAMIDE HCL 2 MG CAPSULE PO PRN (12:29)
== END 2023-02-21 13:41 | disposition home or self-care (01) | DRG 895 ==
LOC: YASAS 11:18 → Y3W 11:20
PROVIDERS: ADMIT Allergy & Immunology; ATTEND Psychiatry & Neurology Pain Medicine
PROC: HZ42ZZZ Group Counseling for Substance Abuse Treatment, Cognitive-Behavioral (ICD-10-PCS; principal; 2023-02-15)
DX: F10.20 Alcohol dependence, uncomplicated (principal); E72.20 Disorder of urea cycle metabolism, unspecified; F41.8 Other specified anxiety disorders; E78.5 Hyperlipidemia, unspecified; I10 Essential (primary) hypertension; G47.00 Insomnia, unspecified; E11.65 Type 2 diabetes mellitus with hyperglycemia; Z79.4 Long term (current) use of insulin; K21.9 Gastro-esophageal reflux disease without esophagitis; M25.551 Pain in right hip; N40.0 Benign prostatic hyperplasia without lower urinary tract symptoms; E66.9 Obesity, unspecified; Z99.89 Dependence on other enabling machines and devices; Z87.891 Personal history of nicotine dependence; Z68.36 Body mass index [BMI] 36.0-36.9, adult
CPT/HCPCS: 36415; 82140; 82962; 86803; 87635; J0475

== ENCOUNTER 2023-03-27 09:54 | Inpatient (IN) | payer OTHER ==
[2023-03-27 10:33] VITALS: BMI 36.5
[2023-03-27] MEDS ORDERED: LOPERAMIDE HCL 2 MG CAPSULE PO PRN (11:23)
[2023-03-27] MEDS ORDERED: NALOXONE HCL 0.4 MG/ML VIAL IM PRN (11:23)
[2023-03-27] MEDS ORDERED: BENZOCAINE/MENTHOL (CHLORASEPTIC ) LOZENGE MM PRN (11:23)
[2023-03-27] MEDS ORDERED: NALOXONE HCL (KLOXXADO) 8 MG SPRAY NS PRN (11:23)
[2023-03-27] MEDS ORDERED: IBUPROFEN 400 MG TABLET (FP) PO PRN (11:23)
[2023-03-27] MEDS ORDERED: BENZONATATE 200 MG CAPSULE PO PRN (11:23)
[2023-03-27] MEDS ORDERED: POLYETHYLENE GLYCOL (HEALTHYLAX) 3350 17 GM PACKET PO PRN (11:23)
[2023-03-27] MEDS ORDERED: hydrOXYzine PAMOATE 25 MG CAPSULE (FP) PO PRN (11:23)
[2023-03-27] MEDS ORDERED: guaiFENesin 600 MG TABLET.ER (FP) PO PRN (11:23)
[2023-03-27] MEDS ORDERED: ONDANSETRON *ODT* 4 MG TABLET SL PRN (11:23)
[2023-03-27] MEDS ORDERED: ACETAMINOPHEN 325 MG TABLET (FP) PO PRN (11:23)
[2023-03-27] MEDS ORDERED: MAGNESIUM HYDROX 2400MG/30ML ORAL SUSPENSION 30 ML CUP PO PRN (11:23)
[2023-03-27] MEDS ORDERED: INSULIN SLIDING SCALE (NOVOLOG) 1 VIAL SQ ONE (11:49)
[2023-03-27] MEDS ORDERED: INSULIN (NOVOLOG) ASPART 100 UNITS/ML 10ML VIAL SQ ONE (11:59)
[2023-03-27] MEDS ORDERED: INSULIN (NOVOLOG) ASPART 100 UNITS/ML 10ML VIAL ONE (12:03)
[2023-03-27] MEDS ORDERED: chlordiazePOXIDE HCL 25 MG CAPSULE PO PRN (17:15)
[2023-03-27] MEDS: metFORMIN HCL 500 MG TABLET (FP) PO SCH (17:29)
[2023-03-27] MEDS: chlordiazePOXIDE HCL 25 MG CAPSULE PO SCH ×2 (17:30→22:59)
[2023-03-27] MEDS: INSULIN SLIDING SCALE (NOVOLOG) 1 VIAL SQ SCH (17:31)
[2023-03-27] MEDS: BISMUTH SUBSALICYLATE 262 MG/15 ML BTL PO PRN (19:31)
[2023-03-27] MEDS: PATIENT'S OWN MEDICATION (NON-FORMULARY) (Icosapent Ethyl [Vascepa] 1 GM Capsule) PO SCH (22:55)
[2023-03-27] MEDS: ARTIFICIAL TEARS (POLYVINYL ALCOHOL) OPTH DROPS OU SCH (22:58)
[2023-03-27] MEDS: MELATONIN 5 MG TABLETS PO SCH (22:59)
[2023-03-27] MEDS: THIAMINE HCL 100 MG TABLET (FP) PO SCH (22:59)
[2023-03-27] MEDS: PANTOPRAZOLE 40 MG TABLET PO SCH (22:59)
[2023-03-27] MEDS: traZODone HCL 50 MG TABLET (FP) PO SCH (22:59)
[2023-03-27] MEDS: TAMSULOSIN HCL 0.4 MG CAP PO SCH (22:59)
[2023-03-27] MEDS: ATORVASTATIN CA 20 MG TABLET (FP) PO SCH (22:59)
[2023-03-27] MEDS: INSULIN (LEVEMIR) 100 UNITS/ML UNITS SQ SCH (23:00)
[2023-03-28] MEDS: chlordiazePOXIDE HCL 25 MG CAPSULE PO SCH ×4 (05:29→22:44)
[2023-03-28] MEDS: INSULIN SLIDING SCALE (NOVOLOG) 1 VIAL SQ SCH ×3 (06:23→17:11)
[2023-03-28] MEDS ORDERED: INSULIN SLIDING SCALE (NOVOLOG) 1 VIAL SQ ONE (06:29)
[2023-03-28] MEDS ORDERED: sitaGLIPtin PHOSPHATE 50 MG TABLET PO SCH (07:37)
[2023-03-28] MEDS: metFORMIN HCL 500 MG TABLET (FP) PO SCH ×2 (07:48→17:13)
[2023-03-28] MEDS: amLODIPine BESYLATE 10 MG TABLET (FP) PO SCH (10:08)
[2023-03-28] MEDS: PRENATAL VITAMINS W/ FOLIC ACID TABLET (FP) PO SCH (10:08)
[2023-03-28] MEDS: PANTOPRAZOLE 40 MG TABLET PO SCH ×2 (10:08→22:43)
[2023-03-28] MEDS: TAMSULOSIN HCL 0.4 MG CAP PO SCH ×2 (10:08→22:43)
[2023-03-28] MEDS: ARTIFICIAL TEARS (POLYVINYL ALCOHOL) OPTH DROPS OU SCH ×2 (10:08→21:42)
[2023-03-28 12:14] LABS: HEMATOCRIT 38.4 % (35.4-49); HEMOGLOBIN 12.7 GM/dL (11.7-16.9); MCH 27.4 pg (25.7-33.7); MCHC 33.1 g/dl (32.0-35.9); MEAN CELL VOLUME 82.7 fl (80-96); MEAN PLT VOLUME 8.1 fl (7.5-11.1); PLATELET COUNT 253 10^3/uL (134-434); RBC 4.64 M/mm3 (4.00-5.60); WHITE BLOOD COUNT 5.5 K/mm3 (4.0-10.0)
[2023-03-28 13:16] LABS: POTASSIUM 3.8 mmol/L (3.5-5.1)
[2023-03-28 13:39] LABS: ALBUMIN 3.4 g/dl (3.4-5.0); BLOOD UREA NITROGEN 14.7 mg/dL (7-18); CALCIUM 8.8 mg/dL (8.5-10.1)
[2023-03-28 13:44] LABS: BILIRUBIN,TOTAL 0.6 mg/dL (0.2-1); TOT PROT 6.7 g/dl (6.4-8.2)
[2023-03-28] MEDS: INSULIN (LEVEMIR) 100 UNITS/ML UNITS SQ SCH (22:41)
[2023-03-28] MEDS: MELATONIN 5 MG TABLETS PO SCH (22:43)
[2023-03-28] MEDS: THIAMINE HCL 100 MG TABLET (FP) PO SCH (22:43)
[2023-03-28] MEDS: traZODone HCL 50 MG TABLET (FP) PO SCH (22:44)
[2023-03-28] MEDS: ATORVASTATIN CA 20 MG TABLET (FP) PO SCH (22:44)
[2023-03-28] MEDS: OMEGA-3 ACID ETHYL ESTERS (FATTY-ACIDS) 1 GM CAPSULE (FP) PO SCH (23:08)
[2023-03-29] MEDS: PATIENT'S OWN MEDICATION (NON-FORMULARY) (Icosapent Ethyl [Vascepa] 1 GM Capsule) PO SCH (03:02)
[2023-03-29] MEDS: chlordiazePOXIDE HCL 25 MG CAPSULE PO SCH ×4 (05:46→22:10)
[2023-03-29] MEDS: metFORMIN HCL 500 MG TABLET (FP) PO SCH ×2 (06:17→17:10)
[2023-03-29] MEDS ORDERED: INSULIN SLIDING SCALE (NOVOLOG) 1 VIAL SQ ONE (06:34)
[2023-03-29] MEDS: INSULIN SLIDING SCALE (NOVOLOG) 1 VIAL SQ SCH ×3 (07:42→17:11)
[2023-03-29] MEDS: ARTIFICIAL TEARS (POLYVINYL ALCOHOL) OPTH DROPS OU SCH ×2 (10:25→22:11)
[2023-03-29] MEDS: PRENATAL VITAMINS W/ FOLIC ACID TABLET (FP) PO SCH (10:25)
[2023-03-29] MEDS: OMEGA-3 ACID ETHYL ESTERS (FATTY-ACIDS) 1 GM CAPSULE (FP) PO SCH ×2 (10:25→22:09)
[2023-03-29] MEDS: PANTOPRAZOLE 40 MG TABLET PO SCH ×2 (10:25→22:09)
[2023-03-29] MEDS: amLODIPine BESYLATE 10 MG TABLET (FP) PO SCH (10:25)
[2023-03-29] MEDS: TAMSULOSIN HCL 0.4 MG CAP PO SCH ×2 (10:25→22:09)
[2023-03-29] MEDS: MINERAL OIL/PETROLAT/WATER TOPICAL CREAM 113 GM JAR TP SCH ×2 (13:54→22:10)
[2023-03-29] MEDS: IBUPROFEN 600 MG TABLET (FP) PO PRN ×2 (17:14→23:24)
[2023-03-29] MEDS: INSULIN (LEVEMIR) 100 UNITS/ML UNITS SQ SCH (21:36)
[2023-03-29] MEDS: ATORVASTATIN CA 20 MG TABLET (FP) PO SCH (22:09)
[2023-03-29] MEDS: traZODone HCL 50 MG TABLET (FP) PO SCH (22:09)
[2023-03-29] MEDS: THIAMINE HCL 100 MG TABLET (FP) PO SCH (22:10)
[2023-03-29] MEDS: MELATONIN 5 MG TABLETS PO SCH (22:10)
[2023-03-29] MEDS: GABAPENTIN 300 MG CAPSULE PO SCH (22:10)
[2023-03-29] MEDS: MAG HYDROX/AL HYDROX/SIMETH 30 ML UNIT-DOSE CUP PO PRN (23:24)
[2023-03-30] MEDS ORDERED: chlordiazePOXIDE HCL 10 MG CAPSULE PO PRN
[2023-03-30] MEDS: BISMUTH SUBSALICYLATE 262 MG/15 ML BTL PO PRN (01:41)
[2023-03-30] MEDS: chlordiazePOXIDE HCL 10 MG CAPSULE PO SCH ×4 (05:46→22:17)
[2023-03-30] MEDS: GABAPENTIN 300 MG CAPSULE PO SCH ×3 (05:46→22:16)
[2023-03-30] MEDS: INSULIN SLIDING SCALE (NOVOLOG) 1 VIAL SQ SCH ×3 (06:17→17:18)
[2023-03-30] MEDS: metFORMIN HCL 500 MG TABLET (FP) PO SCH ×2 (06:17→17:16)
[2023-03-30] MEDS ORDERED: INSULIN SLIDING SCALE (NOVOLOG) 1 VIAL SQ ONE (06:26)
[2023-03-30] MEDS: ARTIFICIAL TEARS (POLYVINYL ALCOHOL) OPTH DROPS OU SCH ×2 (10:25→22:15)
[2023-03-30] MEDS: amLODIPine BESYLATE 10 MG TABLET (FP) PO SCH (10:26)
[2023-03-30] MEDS: OMEGA-3 ACID ETHYL ESTERS (FATTY-ACIDS) 1 GM CAPSULE (FP) PO SCH ×2 (10:26→22:49)
[2023-03-30] MEDS: PRENATAL VITAMINS W/ FOLIC ACID TABLET (FP) PO SCH (10:26)
[2023-03-30] MEDS: TAMSULOSIN HCL 0.4 MG CAP PO SCH ×2 (10:26→22:17)
[2023-03-30] MEDS: PANTOPRAZOLE 40 MG TABLET PO SCH ×2 (10:26→22:17)
[2023-03-30] MEDS: MINERAL OIL/PETROLAT/WATER TOPICAL CREAM 113 GM JAR TP SCH ×2 (10:26→22:49)
[2023-03-30] MEDS: MELATONIN 5 MG TABLETS PO SCH (22:16)
[2023-03-30] MEDS: traZODone HCL 50 MG TABLET (FP) PO SCH (22:16)
[2023-03-30] MEDS: ATORVASTATIN CA 20 MG TABLET (FP) PO SCH (22:17)
[2023-03-30] MEDS: THIAMINE HCL 100 MG TABLET (FP) PO SCH (22:17)
[2023-03-30] MEDS: INSULIN (LEVEMIR) 100 UNITS/ML UNITS SQ SCH (22:21)
[2023-03-31] MEDS: MAG HYDROX/AL HYDROX/SIMETH 30 ML UNIT-DOSE CUP PO PRN (02:30)
[2023-03-31] MEDS: chlordiazePOXIDE HCL 10 MG CAPSULE PO SCH ×2 (05:50→17:01)
[2023-03-31] MEDS: metFORMIN HCL 500 MG TABLET (FP) PO SCH ×2 (06:53→17:01)
[2023-03-31] MEDS: GABAPENTIN 300 MG CAPSULE PO SCH ×3 (06:54→21:59)
[2023-03-31] MEDS: INSULIN SLIDING SCALE (NOVOLOG) 1 VIAL SQ SCH ×3 (06:56→17:01)
[2023-03-31] MEDS: ARTIFICIAL TEARS (POLYVINYL ALCOHOL) OPTH DROPS OU SCH ×2 (09:45→21:58)
[2023-03-31] MEDS: PANTOPRAZOLE 40 MG TABLET PO SCH ×2 (09:46→21:59)
[2023-03-31] MEDS: OMEGA-3 ACID ETHYL ESTERS (FATTY-ACIDS) 1 GM CAPSULE (FP) PO SCH ×2 (09:46→21:59)
[2023-03-31] MEDS: MINERAL OIL/PETROLAT/WATER TOPICAL CREAM 113 GM JAR TP SCH ×2 (09:46→22:00)
[2023-03-31] MEDS: TAMSULOSIN HCL 0.4 MG CAP PO SCH ×2 (09:46→21:59)
[2023-03-31] MEDS: amLODIPine BESYLATE 10 MG TABLET (FP) PO SCH (09:46)
[2023-03-31] MEDS: PRENATAL VITAMINS W/ FOLIC ACID TABLET (FP) PO SCH (09:47)
[2023-03-31] MEDS: traZODone HCL 50 MG TABLET (FP) PO SCH (21:58)
[2023-03-31] MEDS: INSULIN (LEVEMIR) 100 UNITS/ML UNITS SQ SCH (21:59)
[2023-03-31] MEDS: THIAMINE HCL 100 MG TABLET (FP) PO SCH (21:59)
[2023-03-31] MEDS: MELATONIN 5 MG TABLETS PO SCH (21:59)
[2023-03-31] MEDS: ATORVASTATIN CA 20 MG TABLET (FP) PO SCH (21:59)
[2023-04-01] MEDS: MAG HYDROX/AL HYDROX/SIMETH 30 ML UNIT-DOSE CUP PO PRN (02:17)
[2023-04-01] MEDS ORDERED: chlordiazePOXIDE HCL 10 MG CAPSULE PO ONE (05:00)
[2023-04-01] MEDS: GABAPENTIN 300 MG CAPSULE PO SCH (05:39)
[2023-04-01] MEDS: IBUPROFEN 600 MG TABLET (FP) PO PRN (05:41)
[2023-04-01] MEDS: metFORMIN HCL 500 MG TABLET (FP) PO SCH (06:07)
[2023-04-01] MEDS: INSULIN SLIDING SCALE (NOVOLOG) 1 VIAL SQ SCH ×2 (06:07→10:04)
[2023-04-01 06:12] VITALS: RESP 18
[2023-04-01 09:25] VITALS: BP 119/72; PULSE 72; TEMP 97.1
[2023-04-01] MEDS: ARTIFICIAL TEARS (POLYVINYL ALCOHOL) OPTH DROPS OU SCH (09:38)
[2023-04-01] MEDS: PRENATAL VITAMINS W/ FOLIC ACID TABLET (FP) PO SCH (09:38)
[2023-04-01] MEDS: OMEGA-3 ACID ETHYL ESTERS (FATTY-ACIDS) 1 GM CAPSULE (FP) PO SCH (09:39)
[2023-04-01] MEDS: PANTOPRAZOLE 40 MG TABLET PO SCH (09:39)
[2023-04-01] MEDS: TAMSULOSIN HCL 0.4 MG CAP PO SCH (09:39)
[2023-04-01] MEDS: amLODIPine BESYLATE 10 MG TABLET (FP) PO SCH (09:39)
[2023-04-01] MEDS: MINERAL OIL/PETROLAT/WATER TOPICAL CREAM 113 GM JAR TP SCH (09:40)
== END 2023-04-01 09:41 | disposition home or self-care (01) | DRG 897 ==
LOC: YASAS 09:54 → Y3N 12:44
PROVIDERS: ADMIT Allergy & Immunology; ATTEND Surgery
PROC: HZ2ZZZZ Detoxification Services for Substance Abuse Treatment (ICD-10-PCS; principal; 2023-03-27)
DX: F10.230 Alcohol dependence with withdrawal, uncomplicated (principal); F41.9 Anxiety disorder, unspecified; F32.A Depression, unspecified; I10 Essential (primary) hypertension; J45.909 Unspecified asthma, uncomplicated; K21.9 Gastro-esophageal reflux disease without esophagitis; E78.5 Hyperlipidemia, unspecified; E11.9 Type 2 diabetes mellitus without complications; Z79.84 Long term (current) use of oral hypoglycemic drugs; N40.0 Benign prostatic hyperplasia without lower urinary tract symptoms; E66.09 Other obesity due to excess calories; Z68.36 Body mass index [BMI] 36.0-36.9, adult; Z98.2 Presence of cerebrospinal fluid drainage device; Z87.891 Personal history of nicotine dependence; Z99.89 Dependence on other enabling machines and devices
CPT/HCPCS: 36415; 80053; 82962; 85027; 86780; 87635; 87811

== ENCOUNTER 2023-05-22 09:39 | Inpatient (IN) | payer OTHER ==
[2023-05-22] MEDS ORDERED: NALOXONE HCL 0.4 MG/ML VIAL IM PRN (10:24)
[2023-05-22] MEDS ORDERED: ACETAMINOPHEN 325 MG TABLET (FP) PO PRN (10:24)
[2023-05-22] MEDS ORDERED: BENZOCAINE/MENTHOL (CHLORASEPTIC ) LOZENGE MM PRN (10:24)
[2023-05-22] MEDS ORDERED: MAGNESIUM HYDROX 2400MG/30ML ORAL SUSPENSION 30 ML CUP PO PRN (10:24)
[2023-05-22] MEDS ORDERED: ONDANSETRON *ODT* 4 MG TABLET SL PRN (10:24)
[2023-05-22] MEDS ORDERED: guaiFENesin 600 MG TABLET.ER (FP) PO PRN (10:24)
[2023-05-22] MEDS ORDERED: LOPERAMIDE HCL 2 MG CAPSULE PO PRN (10:24)
[2023-05-22] MEDS ORDERED: POLYETHYLENE GLYCOL (HEALTHYLAX) 3350 17 GM PACKET PO PRN (10:24)
[2023-05-22] MEDS ORDERED: NALOXONE HCL (KLOXXADO) 8 MG SPRAY NS PRN (10:24)
[2023-05-22] MEDS ORDERED: BENZONATATE 200 MG CAPSULE PO PRN (10:24)
[2023-05-22] MEDS ORDERED: chlordiazePOXIDE HCL 25 MG CAPSULE PO PRN (10:27)
[2023-05-22] MEDS ORDERED: INSULIN SLIDING SCALE (NOVOLOG) 1 VIAL SQ ONE ×3 (11:15→23:17)
[2023-05-22] MEDS ORDERED: chlordiazePOXIDE HCL 25 MG CAPSULE ONE (11:19)
[2023-05-22] MEDS ORDERED: INSULIN (NOVOLOG) ASPART 100 UNITS/ML 10ML VIAL ONE (11:19)
[2023-05-22] MEDS: chlordiazePOXIDE HCL 25 MG CAPSULE PO SCH ×3 (11:23→22:06)
[2023-05-22 11:36] VITALS: BMI 30.4
[2023-05-22] MEDS ORDERED: hydrOXYzine PAMOATE 25 MG CAPSULE (FP) PO ONE (13:15)
[2023-05-22] MEDS: BISMUTH SUBSALICYLATE 524 MG/30 ML PO PRN (13:26)
[2023-05-22 16:20] LABS: HEMOGLOBIN 14.6 GM/dL (11.7-16.9); MCH 26.9 pg (25.7-33.7); MCHC 33.2 g/dl (32.0-35.9); MEAN PLT VOLUME 8.8 fl (7.5-11.1); PLATELET COUNT 285 10^3/uL (134-434); RBC 5.44 M/mm3 (4.00-5.60); RDW 16.1 % (11.9-15.9); WHITE BLOOD COUNT 11.9 K/mm3 (4.0-10.0)
[2023-05-22 16:24] LABS: CHLORIDE 95 mmol/L (98-107); POTASSIUM 4.7 mmol/L (3.5-5.1); SODIUM 129 mmol/L (136-145)
[2023-05-22 16:29] LABS: ALBUMIN 3.6 g/dl (3.4-5.0); CALCIUM 9.8 mg/dL (8.5-10.1)
[2023-05-22 16:30] LABS: ANION GAP 19 mmol/L (4-13); BLOOD UREA NITROGEN 16.8 mg/dL (7-18); CO2 15 mmol/L (21-32)
[2023-05-22 16:31] LABS: CREATININE 1.3 mg/dL (0.55-1.3)
[2023-05-22 16:32] LABS: SGOT/AST 20 U/L (15-37)
[2023-05-22 16:33] LABS: BILIRUBIN,TOTAL 0.3 mg/dL (0.2-1); SGPT/ALT 33 U/L (13-61); TOT PROT 7.5 g/dl (6.4-8.2)
[2023-05-22 16:34] LABS: ALK PHOS 73 U/L (45-117)
[2023-05-22 16:36] LABS: GLUCOSE,RANDOM 555 mg/dL (74-106)
[2023-05-22] MEDS: metFORMIN HCL 500 MG TABLET (FP) PO SCH (17:26)
[2023-05-22] MEDS: INSULIN (NOVOLOG) ASPART 100 UNITS/ML 10ML VIAL SQ SCH ×2 (17:28→22:07)
[2023-05-22] MEDS: IBUPROFEN 400 MG TABLET (FP) PO PRN (17:33)
[2023-05-22] MEDS ORDERED: METOPROLOL TARTRATE 50 MG TABLET (FP) PO ONE (21:13)
[2023-05-22] MEDS: MELATONIN 5 MG TABLETS PO SCH (21:53)
[2023-05-22] MEDS: TAMSULOSIN HCL 0.4 MG CAP PO SCH (21:53)
[2023-05-22] MEDS: THIAMINE HCL 100 MG TABLET (FP) PO SCH (21:53)
[2023-05-22] MEDS: ATORVASTATIN CA 20 MG TABLET (FP) PO SCH (21:53)
[2023-05-23] MEDS: chlordiazePOXIDE HCL 25 MG CAPSULE PO SCH ×4 (05:58→22:28)
[2023-05-23] MEDS: metFORMIN HCL 500 MG TABLET (FP) PO SCH ×2 (07:24→17:01)
[2023-05-23] MEDS: INSULIN (NOVOLOG) ASPART 100 UNITS/ML 10ML VIAL SQ SCH ×3 (07:25→17:06)
[2023-05-23] MEDS: CHOLECALCIFEROL (VIT D3) 1,000 UNIT (25 MCG) TABLET PO SCH (10:33)
[2023-05-23] MEDS: TAMSULOSIN HCL 0.4 MG CAP PO SCH ×2 (10:34→21:29)
[2023-05-23] MEDS: amLODIPine BESYLATE 10 MG TABLET (FP) PO SCH (10:34)
[2023-05-23] MEDS: PRENATAL VITAMINS W/ FOLIC ACID TABLET (FP) PO SCH (10:35)
[2023-05-23] MEDS: IBUPROFEN 600 MG TABLET (FP) PO PRN ×2 (10:36→18:32)
[2023-05-23] MEDS ORDERED: INSULIN SLIDING SCALE (NOVOLOG) 1 VIAL SQ ONE ×2 (11:55→16:55)
[2023-05-23] MEDS ORDERED: INSULIN (NOVOLOG) ASPART 100 UNITS/ML 10ML VIAL SQ ONE (18:55)
[2023-05-23] MEDS: ATORVASTATIN CA 20 MG TABLET (FP) PO SCH (21:28)
[2023-05-23] MEDS: THIAMINE HCL 100 MG TABLET (FP) PO SCH (21:28)
[2023-05-23] MEDS: INSULIN (LEVEMIR) 100 UNITS/ML UNITS SQ SCH (21:28)
[2023-05-23] MEDS: MELATONIN 5 MG TABLETS PO SCH (21:28)
[2023-05-23] MEDS ORDERED: INSULIN (LEVEMIR) 100 UNITS/ML UNITS SQ SCH (22:00)
[2023-05-23] MEDS ORDERED: traZODone HCL 50 MG TABLET (FP) PO SCH (22:00)
[2023-05-23] MEDS: IBUPROFEN 400 MG TABLET (FP) PO PRN (22:27)
[2023-05-24] MEDS: chlordiazePOXIDE HCL 25 MG CAPSULE PO SCH ×4 (05:32→22:08)
[2023-05-24] MEDS ORDERED: INSULIN SLIDING SCALE (NOVOLOG) 1 VIAL SQ ONE (06:00)
[2023-05-24] MEDS: metFORMIN HCL 500 MG TABLET (FP) PO SCH ×2 (06:02→19:00)
[2023-05-24] MEDS: INSULIN SLIDING SCALE (NOVOLOG) 1 VIAL SQ SCH ×3 (07:05→16:59)
[2023-05-24] MEDS: amLODIPine BESYLATE 10 MG TABLET (FP) PO SCH (10:07)
[2023-05-24] MEDS: TAMSULOSIN HCL 0.4 MG CAP PO SCH ×2 (10:07→21:34)
[2023-05-24] MEDS: PRENATAL VITAMINS W/ FOLIC ACID TABLET (FP) PO SCH (10:08)
[2023-05-24] MEDS: CHOLECALCIFEROL (VIT D3) 1,000 UNIT (25 MCG) TABLET PO SCH (10:08)
[2023-05-24] MEDS: TOLNAFTATE 1% CREAM 15 GM TUBE TP SCH ×2 (10:10→21:42)
[2023-05-24] MEDS: IBUPROFEN 400 MG TABLET (FP) PO PRN (19:02)
[2023-05-24] MEDS: ARTIFICIAL TEARS (POLYVINYL ALCOHOL) OPTH DROPS OU PRN (21:28)
[2023-05-24] MEDS: MELATONIN 5 MG TABLETS PO SCH (21:34)
[2023-05-24] MEDS: ATORVASTATIN CA 20 MG TABLET (FP) PO SCH (21:34)
[2023-05-24] MEDS: THIAMINE HCL 100 MG TABLET (FP) PO SCH (21:34)
[2023-05-24] MEDS ORDERED: INSULIN (NOVOLOG) ASPART 100 UNITS/ML 10ML VIAL SQ ONE (21:35)
[2023-05-24] MEDS: INSULIN (LEVEMIR) 100 UNITS/ML UNITS SQ SCH (21:35)
[2023-05-25] MEDS ORDERED: chlordiazePOXIDE HCL 10 MG CAPSULE PO PRN
[2023-05-25] MEDS: MAG HYDROX/AL HYDROX/SIMETH 30 ML UNIT-DOSE CUP PO PRN (02:03)
[2023-05-25] MEDS: IBUPROFEN 600 MG TABLET (FP) PO PRN ×2 (02:05→22:11)
[2023-05-25] MEDS: chlordiazePOXIDE HCL 10 MG CAPSULE PO SCH ×4 (05:42→22:11)
[2023-05-25] MEDS: metFORMIN HCL 500 MG TABLET (FP) PO SCH ×2 (06:07→17:29)
[2023-05-25] MEDS: INSULIN SLIDING SCALE (NOVOLOG) 1 VIAL SQ SCH ×5 (06:08→22:16)
[2023-05-25] MEDS: PRENATAL VITAMINS W/ FOLIC ACID TABLET (FP) PO SCH (10:30)
[2023-05-25] MEDS: amLODIPine BESYLATE 10 MG TABLET (FP) PO SCH (10:30)
[2023-05-25] MEDS: TAMSULOSIN HCL 0.4 MG CAP PO SCH ×2 (10:31→22:11)
[2023-05-25] MEDS: CHOLECALCIFEROL (VIT D3) 1,000 UNIT (25 MCG) TABLET PO SCH (10:31)
[2023-05-25] MEDS: TOLNAFTATE 1% CREAM 15 GM TUBE TP SCH ×2 (10:31→22:10)
[2023-05-25 10:35] LABS: BASO % 0.5 % (0-2.0); EOS % 2.4 % (0-4.5); HEMATOCRIT 37.6 % (35.4-49); LYMPH % 30.7 % (8-40); MCH 26.2 pg (25.7-33.7); MEAN PLT VOLUME 9.1 fl (7.5-11.1); MONO % 8.8 % (3.8-10.2); NEUT % 57.6 % (42.8-82.8); PLATELET COUNT 188 10^3/uL (134-434); RBC 4.59 M/mm3 (4.00-5.60); RDW 15.7 % (11.9-15.9); WHITE BLOOD COUNT 5.2 K/mm3 (4.0-10.0)
[2023-05-25 10:40] LABS: BLOOD UREA NITROGEN 20.8 mg/dL (7-18)
[2023-05-25 10:44] LABS: CREATININE 1.2 mg/dL (0.55-1.3)
[2023-05-25 10:45] LABS: BILIRUBIN,TOTAL 0.4 mg/dL (0.2-1)
[2023-05-25 11:00] LABS: ALBUMIN 2.8 g/dl (3.4-5.0)
[2023-05-25] MEDS ORDERED: INSULIN SLIDING SCALE (NOVOLOG) 1 VIAL SQ ONE (17:12)
[2023-05-25] MEDS: INSULIN (LEVEMIR) 100 UNITS/ML UNITS SQ SCH (21:07)
[2023-05-25] MEDS ORDERED: traZODone HCL 100 MG TABLET (FP) PO SCH (22:00)
[2023-05-25] MEDS: MELATONIN 5 MG TABLETS PO SCH (22:11)
[2023-05-25] MEDS: ATORVASTATIN CA 20 MG TABLET (FP) PO SCH (22:11)
[2023-05-25] MEDS: THIAMINE HCL 100 MG TABLET (FP) PO SCH (22:11)
[2023-05-26] MEDS: chlordiazePOXIDE HCL 10 MG CAPSULE PO SCH ×2 (05:48→16:38)
[2023-05-26] MEDS: INSULIN SLIDING SCALE (NOVOLOG) 1 VIAL SQ SCH ×4 (07:30→21:28)
[2023-05-26] MEDS: metFORMIN HCL 500 MG TABLET (FP) PO SCH ×2 (08:19→16:38)
[2023-05-26] MEDS: PRENATAL VITAMINS W/ FOLIC ACID TABLET (FP) PO SCH (10:52)
[2023-05-26] MEDS: TOLNAFTATE 1% CREAM 15 GM TUBE TP SCH ×2 (10:53→22:12)
[2023-05-26] MEDS: TAMSULOSIN HCL 0.4 MG CAP PO SCH ×2 (10:54→22:12)
[2023-05-26] MEDS: amLODIPine BESYLATE 10 MG TABLET (FP) PO SCH (10:54)
[2023-05-26] MEDS: CHOLECALCIFEROL (VIT D3) 1,000 UNIT (25 MCG) TABLET PO SCH (10:55)
[2023-05-26] MEDS: IBUPROFEN 600 MG TABLET (FP) PO PRN ×2 (11:47→18:50)
[2023-05-26] MEDS: MAG HYDROX/AL HYDROX/SIMETH 30 ML UNIT-DOSE CUP PO PRN (21:26)
[2023-05-26] MEDS: INSULIN (LEVEMIR) 100 UNITS/ML UNITS SQ SCH (21:28)
[2023-05-26] MEDS: traZODone HCL 50 MG TABLET (FP) PO SCH (22:11)
[2023-05-26] MEDS: ATORVASTATIN CA 20 MG TABLET (FP) PO SCH (22:11)
[2023-05-26] MEDS: MELATONIN 5 MG TABLETS PO SCH (22:12)
[2023-05-26] MEDS: THIAMINE HCL 100 MG TABLET (FP) PO SCH (22:12)
[2023-05-26] MEDS: BISMUTH SUBSALICYLATE 524 MG/30 ML PO PRN (23:16)
[2023-05-27] MEDS ORDERED: MELATONIN 5 MG TABLETS PO ONE (00:05)
[2023-05-27] MEDS ORDERED: chlordiazePOXIDE HCL 10 MG CAPSULE PO ONE (05:00)
[2023-05-27] MEDS: metFORMIN HCL 500 MG TABLET (FP) PO SCH ×2 (06:26→16:52)
[2023-05-27] MEDS: INSULIN SLIDING SCALE (NOVOLOG) 1 VIAL SQ SCH ×4 (06:27→22:23)
[2023-05-27] MEDS: amLODIPine BESYLATE 10 MG TABLET (FP) PO SCH (10:00)
[2023-05-27] MEDS: TAMSULOSIN HCL 0.4 MG CAP PO SCH ×2 (10:00→22:24)
[2023-05-27] MEDS: PRENATAL VITAMINS W/ FOLIC ACID TABLET (FP) PO SCH (10:00)
[2023-05-27] MEDS: TOLNAFTATE 1% CREAM 15 GM TUBE TP SCH ×2 (10:00→22:26)
[2023-05-27] MEDS: MAG HYDROX/AL HYDROX/SIMETH 30 ML UNIT-DOSE CUP PO PRN (10:01)
[2023-05-27] MEDS: CHOLECALCIFEROL (VIT D3) 1,000 UNIT (25 MCG) TABLET PO SCH (10:02)
[2023-05-27] MEDS: IBUPROFEN 600 MG TABLET (FP) PO PRN (13:09)
[2023-05-27] MEDS: INSULIN (LEVEMIR) 100 UNITS/ML UNITS SQ SCH (22:21)
[2023-05-27] MEDS: THIAMINE HCL 100 MG TABLET (FP) PO SCH (22:24)
[2023-05-27] MEDS: MELATONIN 5 MG TABLETS PO SCH (22:24)
[2023-05-27] MEDS: ATORVASTATIN CA 20 MG TABLET (FP) PO SCH (22:24)
[2023-05-27] MEDS: traZODone HCL 50 MG TABLET (FP) PO SCH (22:25)
[2023-05-28] MEDS: MAG HYDROX/AL HYDROX/SIMETH 30 ML UNIT-DOSE CUP PO PRN (00:12)
[2023-05-28] MEDS: metFORMIN HCL 500 MG TABLET (FP) PO SCH ×2 (06:11→17:18)
[2023-05-28] MEDS: INSULIN SLIDING SCALE (NOVOLOG) 1 VIAL SQ SCH ×4 (06:12→23:23)
[2023-05-28] MEDS: CHOLECALCIFEROL (VIT D3) 1,000 UNIT (25 MCG) TABLET PO SCH (10:29)
[2023-05-28] MEDS: TOLNAFTATE 1% CREAM 15 GM TUBE TP SCH ×2 (10:30→23:55)
[2023-05-28] MEDS: PRENATAL VITAMINS W/ FOLIC ACID TABLET (FP) PO SCH (10:30)
[2023-05-28] MEDS: TAMSULOSIN HCL 0.4 MG CAP PO SCH ×2 (10:30→23:21)
[2023-05-28] MEDS: amLODIPine BESYLATE 10 MG TABLET (FP) PO SCH (10:30)
[2023-05-28] MEDS ORDERED: INSULIN SLIDING SCALE (NOVOLOG) 1 VIAL SQ ONE (11:53)
[2023-05-28] MEDS ORDERED: cloNIDine HCL 0.1 MG TABLET PO PRN (17:22)
[2023-05-28] MEDS ORDERED: PANTOPRAZOLE 40 MG TABLET PO ONE (19:52)
[2023-05-28 20:53] VITALS: RESP 18
[2023-05-28] MEDS: THIAMINE HCL 100 MG TABLET (FP) PO SCH (23:21)
[2023-05-28] MEDS: ATORVASTATIN CA 20 MG TABLET (FP) PO SCH (23:21)
[2023-05-28] MEDS: traZODone HCL 50 MG TABLET (FP) PO SCH (23:21)
[2023-05-28] MEDS: ARTIFICIAL TEARS (POLYVINYL ALCOHOL) OPTH DROPS OU PRN (23:22)
[2023-05-28] MEDS: CLOTRIMAZOLE 1% CREAM TP SCH (23:22)
[2023-05-28] MEDS: INSULIN (LEVEMIR) 100 UNITS/ML UNITS SQ SCH (23:23)
[2023-05-28] MEDS: MELATONIN 5 MG TABLETS PO SCH (23:55)
[2023-05-29] MEDS: metFORMIN HCL 500 MG TABLET (FP) PO SCH (06:21)
[2023-05-29] MEDS: INSULIN SLIDING SCALE (NOVOLOG) 1 VIAL SQ SCH (06:31)
[2023-05-29 09:08] VITALS: BP 133/84; PULSE 103; TEMP 98.2
[2023-05-29] MEDS ORDERED: PANTOPRAZOLE 40 MG TABLET PO SCH (10:00)
[2023-05-29] MEDS: CHOLECALCIFEROL (VIT D3) 1,000 UNIT (25 MCG) TABLET PO SCH (10:03)
[2023-05-29] MEDS: amLODIPine BESYLATE 10 MG TABLET (FP) PO SCH (10:03)
[2023-05-29] MEDS: PRENATAL VITAMINS W/ FOLIC ACID TABLET (FP) PO SCH (10:03)
[2023-05-29] MEDS: TOLNAFTATE 1% CREAM 15 GM TUBE TP SCH (10:03)
[2023-05-29] MEDS: CLOTRIMAZOLE 1% CREAM TP SCH (10:04)
[2023-05-29] MEDS: TAMSULOSIN HCL 0.4 MG CAP PO SCH (10:04)
[2023-05-29] MEDS: MAG HYDROX/AL HYDROX/SIMETH 30 ML UNIT-DOSE CUP PO PRN (10:32)
== END 2023-05-29 10:53 | disposition home or self-care (01) | DRG 897 ==
LOC: YASAS 09:39 → Y3N 10:45
PROVIDERS: ADMIT Allergy & Immunology; ATTEND Surgery
PROC: HZ2ZZZZ Detoxification Services for Substance Abuse Treatment (ICD-10-PCS; principal; 2023-05-22)
DX: F10.230 Alcohol dependence with withdrawal, uncomplicated (principal); E78.5 Hyperlipidemia, unspecified; E11.65 Type 2 diabetes mellitus with hyperglycemia; Z79.84 Long term (current) use of oral hypoglycemic drugs; Z79.85 Long-term (current) use of injectable non-insulin antidiabetic drugs; G47.33 Obstructive sleep apnea (adult) (pediatric); N40.0 Benign prostatic hyperplasia without lower urinary tract symptoms; Z98.2 Presence of cerebrospinal fluid drainage device; Z99.89 Dependence on other enabling machines and devices; Z87.891 Personal history of nicotine dependence; Z20.822 Contact with and (suspected) exposure to COVID-19
CPT/HCPCS: 36415; 80053; 80307; 82962; 85025; 85027; 86780; 87635; 87811; 93005; 93010; Q0162